=== PATIENT | male | born 1940 | race Caucasian/White ===

== ENCOUNTER 2017-02-19 19:20 | Emergency (ER) | payer OTHER ==
[2017-02-19 19:29] VITALS: BP 115/69; PULSE 89; TEMP 98.3; BMI 32.8
--- NOTE | 2017-02-19 19:37 | PDOC ---
History of Present Illness - History of Present Illness Initial Comments: 02/19/17 19:43 The patient is a 76 year old male, with a significant past medical history of HTN, DM, and hypercholesterolemia, who presents to the emergency department for evaluation of 4 days with left shoulder pain. The patient states his left shoulder pain radiates down his left arm with movement. He also states his pain is worse at night when he goes to sleep. He also admits to tenderness over the symptomatic shoulder. He denies neck pain or jaw pain. He denies experiencing this pain in the past. He denies chest pain, shortness of breath, headache and dizziness. He denies fever, chills, nausea, vomit, diarrhea and constipation. He denies dysuria, frequency, urgency and hematuria. PCP - Dr. Marko Wolff PAST MEDICAL HISTORY: no significant history PAST SURGICAL HISTORY: no significant history FAMILY HISTORY: no pertinent history SOCIAL HISTORY: Pt lives with family and is employed. MEDICATIONS: reviewed ALLERGIES: As per nursing notes Adult ROS General: No fevers or chills, no weakness, no weight loss HEENT: No change in vision. No sore throat,. No ear pain CardioVascular: No chest pain or shortness of breath Respiratory:No cough, or wheezing. Gastrointestinal: no nausea, vomiting, diarrhea or constipation, No rectal bleeding Genitourinary: No dysuria, hematuria, or frequency Musculoskeletal: (+) left shoulder pain. No joint or muscle swelling Neurologic: No headache, vertigo, dizziness or loss of consciousness Psychiatric: nor depression Skin: No rashes or easy bruising Endocrine: no increased thirst or abnormal weight change Allergic: no skin or latex allergy All other systems reviewed and normal Adult Exam: General: Well-nourished well-developed individual, no acute distress HEENT: Throat: Normal, tonsils normal, no erythema or exudate Neck: Supple, no meningeal signs, no lymphadenopathy Eyes::Pupils equal reactive and round, extraocular motion intact Chest: Nontender to palpation Cardiac: S1-S2 normal, regular rate and rhythm, no murmurs rubs or gallops Respiratory: Lungs clear to auscultation bilateral Abdomen: Soft, nondistended, normal bowel sounds, nontender to palpation diffusely Extremities: (+) mild ttp to left anterior shoulder. No swelling, bruising, or erythema. no cyanosis, clubbing, or edema. NO increased warmth. Skin: No rashes Neuro: Alert and oriented x3, nonfocal exam, grossly intact, normal gait Psych: Normal mood and affect <Kristine Rhodes - Last Filed: 02/19/17 20:05> - General History Source: Patient Exam Limitations: No Limitations - History of Present Illness Initial Comments: 02/19/17 20:09 A portion of this note was documented by scribe services under my direction. I have reviewed the details of the note, within reason, and agree with the documentation. The case summary and management plan written by me. Her shoulder x-ray was reviewed by me as well as read by the radiologist as arthritis degenerative changes Assessment and plan: This is a 76-year-old male who comes in complaining of left shoulder pain. Patient has a history of having fractured his left clavicle. She was given Toradol IM and the a brief course of Naprosyn was sent to the pharmacy patient was given an orthopedic follow-up. <Selvin Wilson I - Last Filed: 02/19/17 20:15> - General Chief Complaint: Pain Stated Complaint: LEFT SHOULDER PAIN Time Seen by Provider: 02/19/17 19:23 Past History <Kristine Rhodes - Last Filed: 02/19/17 20:05> - Past Medical History Diabetes: Yes HTN: Yes Hypercholesterolemia: Yes HIV: Yes - Psycho/Social/Smoking Cessation Hx Anxiety: No Suicidal Ideation: No Smoking History: Former smoker Have you smoked in the past 12 months: No If you are a former smoker, when did you quit?: 40 YRS AGO Information on smoking cessation initiated: No Hx Alcohol Use: No Drug/Substance Use Hx: No <Selvin Wilson I - Last Filed: 02/19/17 20:15> - Past Medical History Allergies/Adverse Reactions: Allergies Allergy/AdvReac Type Severity Reaction Status Date / Time No Known Allergies Allergy Unverified 12/23/15 00:47 Home Medications: Ambulatory Orders Furosemide [Lasix] 20 mg PO DAILY 02/19/17 Losartan Potassium 100 mg PO DAILY 02/19/17 Metformin HCl 500 mg PO BID 02/19/17 Simvastatin 40 mg PO HS 02/19/17 *Physical Exam - Vital Signs Last Vital Signs Temp Pulse Resp BP Pulse Ox 98.3 F 89 18 115/69 96 02/19/17 19:20 02/19/17 19:20 02/19/17 19:20 02/19/17 19:20 02/19/17 19:20 <Kristine Rhodes - Last Filed: 02/19/17 20:05> - Vital Signs Last Vital Signs Temp Pulse Resp BP Pulse Ox 98.3 F 89 18 115/69 96 02/19/17 19:20 02/19/17 19:20 02/19/17 19:20 02/19/17 19:20 02/19/17 19:20 <Selvin Wilson I - Last Filed: 02/19/17 20:15> ED Treatment Course - RADIOLOGY Radiograph Interpretation: 02/19/17 20:06 Left shoulder xray was read by Dr. Lua at 20:04 Impression: mild degenerative arthritis without evidence of acute fracture or joint abnormalities. <Kristine Rhodes - Last Filed: 02/19/17 20:05> *DC/Admit/Observation/Transfer - Attestations Scribe Attestion: 02/19/17 19:43 Documentation prepared by Kristine Rhodes, acting as medical record assistant for Selvin Wilson MD <Kristine Rhodes - Last Filed: 02/19/17 20:05> - Discharge Dispostion Admit: No <Selvin Wilson I - Last Filed: 02/19/17 20:15> Diagnosis at time of Disposition: Left shoulder pain Qualifiers: Chronicity: acute Qualified Code(s): M25.512 - Pain in left shoulder - Discharge Dispostion Disposition: HOME Condition at time of disposition: Stable - Referrals Referrals: Susana Carl MD [Primary Care Provider] - - Patient Instructions Additional Instructions: Take Naprosyn 1 tablet twice a day for the pain. Take with food don't take on an empty stomach. Follow-up with an orthopedist if you need an orthopedist call Dr. Alarcon at [phone]. Return to the emergency department immediately with ANY new, persistent or worsening symptoms. Continue any medications as previously prescribed by your physician. You should follow up with your primary doctor as soon as possible regarding today's emergency department visit. . Please make sure your doctor reviews the results of your emergency evaluation. Thank you for coming to the Emergency Department today for your care. It was a pleasure to see you today. Please note that your evaluation is INCOMPLETE until you follow-up with your doctor.
[2017-02-19] MEDS ORDERED: KETOROLAC TROMETHAMINE 60 MG/2 ML VIAL IM ONE (20:04)
[2017-02-19] MEDS ORDERED: KETOROLAC TROMETHAMINE 60 MG/2 ML VIAL ONE (20:05)
--- NOTE | 2017-02-20 14:16 | EKG ---
Test Reason : Blood Pressure : / mmHG Vent. Rate : 089 BPM Atrial Rate : 089 BPM P-R Int : 164 ms QRS Dur : 114 ms QT Int : 390 ms P-R-T Axes : 023 -57 032 degrees QTc Int : 474 ms NORMAL SINUS RHYTHM POSSIBLE LEFT ATRIAL ENLARGEMENT LEFT AXIS DEVIATION NON-SPECIFIC INTRA-VENTRICULAR CONDUCTION DELAY NO PREVIOUS ECGS AVAILABLE Confirmed by MD DE LA CRUZ MARJORY ([id number]) on 02/20/2017 2:16:37 PM Referred By: DR SLATER Confirmed By:MIKE DE LA CRUZ MD
== END 2017-02-19 20:21 | disposition home or self-care (01) ==
LOC: FER 19:20
PROC: 3E0233Z Introduction of Anti-inflammatory into Muscle, Percutaneous Approach (ICD-10-PCS; principal; 2017-02-19)
DX: M25.512 Pain in left shoulder (principal); Z87.891 Personal history of nicotine dependence; E11.9 Type 2 diabetes mellitus without complications; I10 Essential (primary) hypertension; E78.00 Pure hypercholesterolemia, unspecified; Z21 Asymptomatic human immunodeficiency virus [HIV] infection status
CPT/HCPCS: 73030-TC-LT; 93005; 99283-25

== ENCOUNTER 2017-03-02 07:44 | Observation (INO) | payer OTHER ==
--- NOTE | 2017-03-02 07:54 | PDOC ---
History of Present Illness - General Chief Complaint: Chest Pain Stated Complaint: CHEST PAIN, HTN Time Seen by Provider: 03/02/17 07:53 History Source: Patient Exam Limitations: No Limitations - History of Present Illness Initial Comments: 03/02/17 08:14 Pt presents to the ED complaining of a several hour history of left sided non radiating chest pain. The pain was constant, mild in severity, and characterized by the patient as " regular pain", similar to a pulled muscle. Denies shortness of breath, nausea, vomiting or diaphoresis. Patient does not have a history of similar pain. Pain began before the patient went to sleep last night, and patient presents to the ED today because he continued to have pain this morning. Patient was also concerned because he checked his BP at home and it was high. Patient has not taken his home medication yet today. History of CAD with stents x 2. 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 Denies recent stress test. 03/02/17 08:18 Timing/Duration: 4-6 hours, constant Severity: mild Associated Symptoms: reports: chest pain. denies: denies symptoms, cough, diaphoresis, fever/chills, headaches, loss of appetite, malaise, nausea/vomiting , rash, seizure, shortness of breath, syncope, weakness, other Aspirin Received prior to arrival: Yes: no aspirin today Past History - Past Medical History Allergies/Adverse Reactions: Allergies Allergy/AdvReac Type Severity Reaction Status Date / Time No Known Allergies Allergy Unverified 12/23/15 00:47 Home Medications: Ambulatory Orders Losartan Potassium 100 mg PO DAILY 02/19/17 Metformin HCl 500 mg PO BID 02/19/17 Simvastatin 40 mg PO HS 02/19/17 Clopidogrel Bisulfate [Clopidogrel] 75 mg PO DAILY 03/02/17 Glipizide 5 mg PO DAILY 03/02/17 Metoprolol Tartrate 12.5 mg PO BID 03/02/17 Diabetes: Yes HTN: Yes Hypercholesterolemia: Yes HIV: Yes Other medical history: CAD with stent x 2 placed two years ago. - Psycho/Social/Smoking Cessation Hx Anxiety: No Suicidal Ideation: No Smoking History: Former smoker Have you smoked in the past 12 months: No If you are a former smoker, when did you quit?: 40 YRS AGO Hx Alcohol Use: No Drug/Substance Use Hx: No Review of Systems - Review of Systems Constitutional: No: Symptoms Reported, See HPI, Chills, Diaphoresis, Fever, Loss of Appetite, Malaise, Night Sweats, Weakness, Weight Stable, Unintentional Wgt. Loss, Unexplained wgt Loss, Other Respiratory: No: Symptoms reported, See HPI, Cough, Orthopnea, Shortness of Breath, SOB with Exertion, SOB at Rest, Stridor, Wheezing, Productive cough, Hemoptysis, Other Cardiac (ROS): Yes: Chest Pain. No: Symptoms Reported, See HPI, Edema, Irregular Heart Rate, Lightheadedness, Palpitations, Syncope, Chest Tightness, Other ABD/GI: No: Symptoms Reported, See HPI, Abdominal Distended, Abd. Pain w/ defecation, Blood Streaked Bowels, Constipated, Diarrhea, Difficulty Swallowing , Nausea, Poor Appetite, Poor Fluid Intake, Rectal Bleeding, Vomiting, Indigestion, Abdominal cramping, Tarry Stools, Other Musculoskeletal: No: Symptoms Reported, See HPI, Back Pain, Gout, Joint Pain, Joint Swelling, Muscle Pain, Muscle Weakness, Neck Pain, Joint Stiffness, Other All Other Systems: Reviewed and Negative *Physical Exam - Vital Signs 03/02/17 08:20 - Physical Exam General Appearance: Yes: Nourished, Appropriately Dressed. No: Apparent Distress, Disheveled, Mild Distress, Moderate Distress, Severe Distress, Alcohol on Breath, Intoxicated, Cachetic, Obese, Thin, Other HEENT: positive: Normal ENT Inspection Neck: positive: Trachea midline, Supple Respiratory/Chest: positive: Lungs Clear, Normal Breath Sounds Cardiovascular: positive: Regular Rhythm, Regular Rate Gastrointestinal/Abdominal: positive: Soft. negative: Normal Bowel Sounds, Tender, Flat, Organomegaly, Pulsatile Mass, Increased Bowel Sounds, Decreased BS , Protuberent, Distended, Guarding, Rebound, Tenderness, Hernia, Mass, Hepatomegaly, Spleenomegaly, Other Musculoskeletal: positive: Normal Inspection Extremity: positive: Normal Inspection, Normal Range of Motion Neurologic: positive: Fully Oriented, Alert, Normal Mood/Affect ED Treatment Course - LABORATORY CBC & Chemistry Diagram: 03/02/17 08:35 03/02/17 08:35 Medical Decision Making - Medical Decision Making 03/02/17 08:21 Pt presents to the ED complaining of several hours of constant chest pain that has now sponataneously resolved. Multiple risk factors for cardiac disease. Currently chest pain free. EKG shows Left axis deviation with no signs of ischemia and is unchanged from previous. Differential includes ACS, muscular chest pain. Heart score is 4. Will check labs and cardiac enzymes, treat with ASA, likely admit for cardiac work up. *DC/Admit/Observation/Transfer Diagnosis at time of Disposition: Chest pain Qualifiers: Chest pain type: other chest pain Qualified Code(s): R07.89 - Other chest pain ; R07.8 - Other chest pain - Discharge Dispostion Condition at time of disposition: Good Admit: Yes Decision to Admit order Date/Time: 03/02/17 11:33
[2017-03-02] MEDS ORDERED: ASPIRIN 81 MG CHEWABLE TABLETS PO ONE (08:09)
[2017-03-02] MEDS ORDERED: LOSARTAN POTASSIUM 50 MG TABLET (FP) PO ONE (08:11)
[2017-03-02] MEDS ORDERED: ASPIRIN 81 MG CHEWABLE TABLETS ONE (08:14)
[2017-03-02 08:40] LABS: BASOPHIL 0.8 % (0-2.0); EOSINOPHIL 3.2 % (0-4.5); MCH 31.2 pg (25.7-33.7); MCHC 33.1 g/dl (32.0-35.9); MEAN CELL VOLUME 94.2 fl (80-96); MEAN PLT VOLUME 8.3 fl (7.5-11.1); NEUTROPHILS 66.1 % (42.8-82.8); PLATELET COUNT 209 K/MM3 (134-434); RDW 12.1 % (11.9-15.9); WHITE BLOOD COUNT 5.8 K/mm3 (4.0-10.8)
[2017-03-02 09:06] LABS: ALBUMIN 4.3 g/dl (3.5-5.0); ALK PHOS 51 U/L (32-92); ANION GAP 8 (8-16); CALCIUM 9.5 mg/dl (8.4-10.2); CO2 25 mmol/L (22-28); CREATININE 1.4 mg/dl (0.6-1.3); GLUCOSE,RANDOM 170 mg/dl (74-106); SGOT/AST 27 U/L (10-42); SGPT/ALT 18 U/L (10-40); TOT PROT 6.5 g/dl (6.4-8.3)
[2017-03-02 09:11] LABS: TROPONIN I (DFP) 0.04 ng/ml (0.03-0.50)
[2017-03-02] MEDS ORDERED: LOSARTAN POTASSIUM 50 MG TABLET (FP) PO SCH (10:00)
[2017-03-02] MEDS ORDERED: METOPROLOL TARTRATE 25 MG TABLET (FP) PO ONE (10:52)
[2017-03-02] MEDS ORDERED: METOPROLOL TARTRATE 50 MG TABLET (FP) ONE (10:57)
--- NOTE | 2017-03-02 14:08 | HP ---
CHIEF COMPLAINT: Chest pain PCP: Dr. 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 HISTORY OF PRESENT ILLNESS: This is a 76 year old male with primary history significant for HTN, HDL,DM,CAD , s/p stent 2 yrs ago, and ? CKD, who presents to the ER c/o woke up with left sided chest pain around midnight, felt like muscle pain which lasted for a few minutes,non-radiating, not associated with sob,diaphoresis or palpitations, pain resolved spontaneously and went back to sleep. This morning reports of having the same pain denies shortness of breath,abdominal pain, nausea, vomiting or diaphoresis. Pt states was in [facility] until the symptoms started. ER course was notable for: (1) EKG : SR , no acute ST/T wave changes (2) BP 172/90, HR 90, T 97.4, R 20 (3) cxR - No acute pathology Recent Travel:No PAST MEDICAL HISTORY: PAST SURGICAL HISTORY: CAD with s/p stent placement 2 yrs ago Social History: Smoking:Former, quit 40 yrs ago Alcohol: None Drugs: None Family History: Brother of [place] at age 77 Allergies No Known Allergies Allergy (Unverified 12/23/15 00:47) HOME MEDICATIONS: Home Medications Medication Instructions Recorded Losartan Potassium 100 mg PO DAILY 02/19/17 Metformin HCl 500 mg PO BID 02/19/17 Simvastatin 40 mg PO HS 02/19/17 Clopidogrel Bisulfate [Clopidogrel] 75 mg PO DAILY 03/02/17 Glipizide 5 mg PO DAILY 03/02/17 Metoprolol Tartrate 12.5 mg PO BID 03/02/17 REVIEW OF SYSTEMS CONSTITUTIONAL: Absent: fever, chills, diaphoresis, generalized weakness, malaise, loss of appetite, weight change HEENT: Absent: rhinorrhea, nasal congestion, throat pain, throat swelling, difficulty swallowing, mouth swelling, ear pain, eye pain, visual changes CARDIOVASCULAR: Absent: chest pain, syncope, palpitations, irregular heart rate, lightheadedness , peripheral edema RESPIRATORY: Absent: cough, shortness of breath, dyspnea with exertion, orthopnea, wheezing, stridor, hemoptysis GASTROINTESTINAL: Absent: abdominal pain, abdominal distension, nausea, vomiting, diarrhea, constipation, melena, hematochezia GENITOURINARY: Absent: dysuria, frequency, urgency, hesitancy, hematuria, flank pain, genital pain MUSCULOSKELETAL: Absent: myalgia, arthralgia, joint swelling, back pain, neck pain SKIN: Absent: rash, itching, pallor HEMATOLOGIC/IMMUNOLOGIC: Absent: easy bleeding, easy bruising, lymphadenopathy, frequent infections ENDOCRINE: Absent: unexplained weight gain, unexplained weight loss, heat intolerance, cold intolerance NEUROLOGIC: Absent: headache, focal weakness or paresthesias, dizziness, unsteady gait, seizure, mental status changes, bladder or bowel incontinence PSYCHIATRIC: Absent: anxiety, depression, suicidal or homicidal ideation, hallucinations. PHYSICAL EXAMINATION Vital Signs - 24 hr 03/02/17 13:25 Pulse Rate [ 80 Left] Respiratory 20 Rate Blood Pressure 154/84 [Right Arm] O2 Sat by Pulse 96 Oximetry (%) GENERAL: Awake, alert, and fully oriented, in no acute distress. HEAD: Normal with no signs of trauma. EYES: Pupils equal, round and reactive to light, extraocular movements intact, sclera anicteric, conjunctiva clear. No lid lag. EARS, NOSE, THROAT: Ears normal, nares patent, oropharynx clear without exudates. Moist mucous membranes. NECK: Normal range of motion, supple without lymphadenopathy, JVD, or masses. LUNGS: Breath sounds equal, clear to auscultation bilaterally. No wheezes, and no crackles. No accessory muscle use. HEART: Regular rate and rhythm, normal S1 and S2 without murmur, rub or gallop. ABDOMEN: Soft, nontender, not distended, normoactive bowel sounds, no guarding, no rebound, no masses. No hepatomegaly or splenomegaly. MUSCULOSKELETAL: Normal range of motion at all joints. No bony deformities or tenderness. No CVA tenderness. UPPER EXTREMITIES: 2+ pulses, warm, well-perfused. No cyanosis. No clubbing. No peripheral edema. LOWER EXTREMITIES: 2+ pulses, warm, well-perfused. No calf tenderness. No peripheral edema. NEUROLOGICAL: Cranial nerves II-XII intact. Normal speech. Normal gait. PSYCHIATRIC: Cooperative. Good eye contact. Appropriate mood and affect. SKIN: Warm, dry, normal turgor, no rashes or lesions noted, normal capillary refill. ASSESSMENT/PLAN: This is a 76 year old male with primary history significant for HTN, HDL,CAD, s/ p stent 2 yrs ago, who presents to the ER with chest pain. * Atypical chest pain, r/o ACS - trop neg x1, will check serial cardiac enzymes - telemetry monitoring - reports had echo about a month ago with Dr. Rodriguez - will cont on ASA, BB, and Statin - ER notified Dr. Murrell ( covering for Dr. Rodriguez) * Hx of CAD w/ stents - will cont on home meds ASA, Plavix, BB and Statin * HTN - BP improving - will cont on home meds - will monitor BP closely * HDL - will cont on Statin * DM - will cont on Glipizide and Metformin - FS AC& HS - consistent carb diet -will check Hgb Alc * CKD - cre 1.4 , same as previous admission VTE : Heparin SQ F/E/N - will continue on diabetic, low NA/ fat diet Visit type - Emergency Visit Emergency Visit: Yes ED Registration Date: 03/02/17 Care time: The patient presented to the Emergency Department on the above date and was hospitalized for further evaluation of their emergent condition. - New Patient This patient is new to me today: Yes Date on this admission: 03/02/17 - Critical Care Critical Care patient: No
[2017-03-02 14:25] VITALS: BMI 33.0
[2017-03-02] MEDS ORDERED: PATIENT'S OWN MEDICATION (NON-FORMULARY) (Losartan Potassium [Losartan Potassium] 100 MG) PO SCH (14:30)
[2017-03-02] MEDS: ACETAMINOPHEN 325 MG TABLET (FP) PO PRN ×2 (16:00→21:32)
--- NOTE | 2017-03-02 16:05 | CON.CARD ---
Consult Consult Specialty:: Cardiology for Jennifer Reason for Consultation:: cp - History of Present Illness History of Present Illness: Pt presents to the ED complaining of a several hour history of left sided non radiating chest pain. The pain was constant, mild in severity, and characterized by the patient as " regular pain", similar to a pulled muscle. Denies shortness of breath, nausea, vomiting or diaphoresis. Patient does not have a history of similar pain. Pain began before the patient went to sleep last night, and patient presents to the ED today because he continued to have pain this morning. Patient was also concerned because he checked his BP at home and it was high. Patient has not taken his home medication yet today. History of CAD with stents x 2. 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 Denies recent stress test. - History Source History Provided By: Patient, Medical Record - Past Medical History Cardio/Vascular: Yes: CAD, HTN, Hyperlipdemia Endocrine: Yes: Diabetes Mellitus - Alcohol/Substance Use Hx Alcohol Use: No - Smoking History Smoking history: Former smoker Have you smoked in the past 12 months: No If you are a former smoker, when did you quit?: 40 YRS AGO Home Medications - Allergies Allergies/Adverse Reactions: Allergies Allergy/AdvReac Type Severity Reaction Status Date / Time No Known Allergies Allergy Unverified 12/23/15 00:47 - Home Medications Home Medications: Ambulatory Orders Losartan Potassium 100 mg PO DAILY 02/19/17 Metformin HCl 500 mg PO BID 02/19/17 Simvastatin 40 mg PO HS 02/19/17 Clopidogrel Bisulfate [Clopidogrel] 75 mg PO DAILY 03/02/17 Glipizide 5 mg PO DAILY 03/02/17 Metformin HCl [Metformin HCl ER] 1,000 mg PO HS 03/02/17 Metoprolol Tartrate 12.5 mg PO BID 03/02/17 Review of Systems - Review of Systems Constitutional: reports: No Symptoms Eyes: reports: No Symptoms HENT: reports: No Symptoms Neck: reports: No Symptoms Cardiovascular: reports: No Symptoms, Chest Pain Respiratory: denies: No Symptoms, Cough, Exercise Intolerance, Hemoptysis, Orthopnea, PND, Snoring, SOB, SOB on Exertion, Wheezing, Other Gastrointestinal: reports: No Symptoms Genitourinary: reports: No Symptoms Breasts: reports: No Symptoms Reported Musculoskeletal: reports: No Symptoms Integumentary: reports: No Symptoms Neurological: reports: No Symptoms Endocrine: reports: No Symptoms Hematology/Lymphatic: reports: No Symptoms Psychiatric: reports: No Symptoms Vital Signs: Vital Signs Temperature 98.0 F 03/02/17 13:45 Pulse Rate 77 03/02/17 13:45 Respiratory Rate 18 03/02/17 13:45 Blood Pressure 151/85 03/02/17 13:45 O2 Sat by Pulse Oximetry (%) 97 03/02/17 13:45 Constitutional: Yes: Well Nourished, No Distress, Calm Eyes: Yes: WNL, Conjunctiva Clear, EOM Intact HENT: Yes: WNL, Atraumatic, Normocephalic Neck: Yes: WNL, Supple, Trachea Midline Respiratory: Yes: WNL, Regular, CTA Bilaterally Gastrointestinal: Yes: WNL, Normal Bowel Sounds Renal/: Yes: WNL Cardiovascular: Yes: WNL, Regular Rate and Rhythm Musculoskeletal: Yes: WNL Extremities: Yes: WNL Integumentary: Yes: WNL Neurological: Yes: WNL, Alert, Oriented ...Motor Strength: WNL Psychiatric: Yes: WNL, Alert, Oriented - Other Data Labs, Other Data: Troponin, BNP 03/02/17 14:30 Troponin I 0.03 Troponin, BNP 03/02/17 14:30 Troponin I 0.03 Imaging - Results Chest X-ray: Image Reviewed (no i/e) EKG: Image Reviewed (s r old septal mi ldea vpcs) Problem List - Problems (1) Chest pain Code(s): R07.9 - CHEST PAIN, UNSPECIFIED Qualifiers: Chest pain type: other chest pain Qualified Code(s): R07.89 - Other chest pain; R07.8 - Other chest pain (2) CHF (congestive heart failure) Code(s): I50.9 - HEART FAILURE, UNSPECIFIED Qualifiers: Congestive heart failure chronicity: acute (3) Left shoulder pain Code(s): M25.512 - PAIN IN LEFT SHOULDER Qualifiers: Chronicity: acute Qualified Code(s): M25.512 - Pain in left shoulder Assessment/Plan cpsx ashd s/p pci 2 years ago htn hlp dm chf plan dapt r/o mi mibi st
[2017-03-02] MEDS: CLOPIDOGREL BISULFATE 75 MG TABLET (FP) PO SCH ×2 (16:17→16:18)
[2017-03-02] MEDS ORDERED: metFORMIN HCL 500 MG TABLET (FP) PO SCH (17:00)
[2017-03-02] MEDS ORDERED: PT OWN MED DRAWER 7, Y5N ONE (17:12)
[2017-03-02 20:55] LABS: TROPONIN I 0.04 ng/ml (0.00-0.05)
[2017-03-02] MEDS ORDERED: METOPROLOL TARTRATE 25 MG TABLET (FP) PO SCH ×2 (22:00)
[2017-03-02] MEDS ORDERED: ATORVASTATIN CA 20 MG TABLET (FP) PO SCH (22:00)
[2017-03-03] MEDS ORDERED: metFORMIN HCL 500 MG TABLET (FP) PO SCH (07:00)
--- NOTE | 2017-03-03 08:08 | EKG ---
Test Reason : Blood Pressure : / mmHG Vent. Rate : 090 BPM Atrial Rate : 090 BPM P-R Int : 186 ms QRS Dur : 114 ms QT Int : 380 ms P-R-T Axes : 013 -50 018 degrees QTc Int : 464 ms SINUS RHYTHM WITH OCCASIONAL PREMATURE VENTRICULAR COMPLEXES LEFT AXIS DEVIATION SEPTAL INFARCT , AGE UNDETERMINED ABNORMAL ECG WHEN COMPARED WITH ECG OF 19-FEB-2017 19:44, PREMATURE VENTRICULAR COMPLEXES ARE NOW PRESENT Criteria for possible SEPTAL INFARCT IS NOW PRESENT Confirmed by SEGUNDO SANCHEZ MD ([id number]) on 03/03/2017 8:07:55 AM Referred By: EVELYN Confirmed By:SEGUNDO SANCHEZ MD
--- NOTE | 2017-03-03 08:23 | PN ---
Progress Note, Physician History of Present Illness: Pt presents to the ED complaining of a several hour history of left sided non radiating chest pain. The pain was constant, mild in severity, and characterized by the patient as " regular pain", similar to a pulled muscle. Denies shortness of breath, nausea, vomiting or diaphoresis. Patient does not have a history of similar pain. Pain began before the patient went to sleep last night, and patient presents to the ED today because he continued to have pain this morning. Patient was also concerned because he checked his BP at home and it was high. Patient has not taken his home medication yet today. History of CAD with stents x 2. Clin Asst is Dr. Rodriguez. Denies recent stress test. - Current Medication List Current Medications: Active Medications Acetaminophen (Tylenol -) 650 mg PO Q4H PRN PRN Reason: FEVER OR PAIN Last Admin: 03/02/17 21:32 Dose: 650 mg Aspirin (Asa -) 81 mg PO DAILY [facility] Atorvastatin Calcium (Lipitor -) 20 mg PO HS [facility] Last Admin: 03/02/17 21:33 Dose: 20 mg Clopidogrel Bisulfate (Plavix -) 75 mg PO DAILY [facility] Last Admin: 03/02/17 16:18 Dose: Not Given Glipizide (Glucotrol -) 5 mg PO DAILY [facility] Losartan Potassium (Cozaar -) 100 mg PO DAILY [facility] Metformin HCl (Glucophage -) 500 mg PO DAILY@0700 [facility] Last Admin: 03/03/17 07:17 Dose: 500 mg Metformin HCl (Glucophage -) 1,000 mg PO 1700 [facility] Last Admin: 03/02/17 16:17 Dose: 1,000 mg Metoprolol Tartrate (Lopressor -) 12.5 mg PO BID [facility] Last Admin: 03/02/17 21:34 Dose: 12.5 mg - Objective Vital Signs: Vital Signs Temperature 98.5 F 03/03/17 06:00 Pulse Rate 88 03/03/17 06:00 Respiratory Rate 19 03/03/17 06:00 Blood Pressure 159/89 03/03/17 06:00 O2 Sat by Pulse Oximetry (%) 97 03/03/17 06:00 Constitutional: Yes: Well Nourished Eyes: Yes: WNL, Conjunctiva Clear, EOM Intact HENT: Yes: WNL, Atraumatic, Normocephalic Neck: Yes: WNL, Supple, Trachea Midline Cardiovascular: Yes: WNL, Regular Rate and Rhythm Respiratory: Yes: WNL, Regular, CTA Bilaterally Gastrointestinal: Yes: WNL, Normal Bowel Sounds Genitourinary: Yes: WNL Musculoskeletal: Yes: WNL Extremities: Yes: WNL Edema: No Integumentary: Yes: WNL Neurological: Yes: WNL, Alert, Oriented ...Motor Strength: WNL Psychiatric: Yes: WNL Labs: Laboratory Tests 03/02/17 03/02/17 03/02/17 08:35 08:35 08:35 WBC 5.8 RBC 4.69 Hgb 14.6 Hct 44.2 MCV 94.2 MCH 31.2 MCHC 33.1 RDW 12.1 Plt Count 209 MPV 8.3 Neutrophils % 66.1 Lymphocytes % 21.2 Monocytes % 8.7 Eosinophils % 3.2 Basophils % 0.8 Sodium 137 Potassium 4.4 Chloride 104 Carbon Dioxide 25 Anion Gap 8 BUN 29 H Creatinine 1.4 H Creat Clearance w eGFR 49.14 POC Glucometer Random Glucose 170 H Calcium 9.5 Total Bilirubin 1.0 AST 27 ALT 18 Alkaline Phosphatase 51 Creatine Kinase 197 Creatine Kinase Index 3.8 CK-MB (CK-2) 7.6 H Troponin I 0.04 Total Protein 6.5 Albumin 4.3 03/02/17 03/02/17 03/02/17 14:30 16:27 20:25 WBC RBC Hgb Hct MCV MCH MCHC RDW Plt Count MPV Neutrophils % Lymphocytes % Monocytes % Eosinophils % Basophils % Sodium Potassium Chloride Carbon Dioxide Anion Gap BUN Creatinine Creat Clearance w eGFR POC Glucometer 107 Random Glucose Calcium Total Bilirubin AST ALT Alkaline Phosphatase Creatine Kinase Creatine Kinase Index CK-MB (CK-2) 6.1 H Troponin I 0.03 0.04 D Total Protein Albumin 03/02/17 03/03/17 20:31 07:01 WBC RBC Hgb Hct MCV MCH MCHC RDW Plt Count MPV Neutrophils % Lymphocytes % Monocytes % Eosinophils % Basophils % Sodium Potassium Chloride Carbon Dioxide Anion Gap BUN Creatinine Creat Clearance w eGFR POC Glucometer 124 181 Random Glucose Calcium Total Bilirubin AST ALT Alkaline Phosphatase Creatine Kinase Creatine Kinase Index CK-MB (CK-2) Troponin I Total Protein Albumin Problem List - Problems (1) Chest pain Code(s): R07.9 - CHEST PAIN, UNSPECIFIED Qualifiers: Chest pain type: other chest pain Qualified Code(s): R07.89 - Other chest pain; R07.8 - Other chest pain (2) CHF (congestive heart failure) Code(s): I50.9 - HEART FAILURE, UNSPECIFIED Qualifiers: Congestive heart failure chronicity: acute (3) Left shoulder pain Code(s): M25.512 - PAIN IN LEFT SHOULDER Qualifiers: Chronicity: acute Qualified Code(s): M25.512 - Pain in left shoulder Assessment/Plan cpsx ashd s/p pci 2 years ago htn hlp dm chf plan dapt r/o mi mibi st in am patient refusing mibi st wants to sign out ama and have stress test as an outpatient. understands risks of /mi
[2017-03-03 08:42] VITALS: BP 180/81; PULSE 98; TEMP 98
[2017-03-03 09:45] LABS: ANION GAP 5 (8-16); CALCIUM 9.2 mg/dl (8.4-10.2); CO2 26 mmol/L (22-28); CREATININE 1.4 mg/dl (0.6-1.3); GLUCOSE,RANDOM 163 mg/dl (74-106)
[2017-03-03] MEDS ORDERED: glipiZIDE 5 MG TABLET (FP) PO SCH (10:00)
[2017-03-03] MEDS ORDERED: ASPIRIN 81 MG CHEWABLE TABLETS PO SCH (10:00)
[2017-03-03] MEDS ORDERED: LOSARTAN POTASSIUM 50 MG TABLET (FP) PO SCH (10:00)
== END 2017-03-03 08:45 | disposition left against medical advice (07) ==
LOC: FER 07:44 → FM/S 12:33
PROVIDERS: ADMIT Internal Medicine; ATTEND Nurse Practitioner Family
DX: R07.89 Other chest pain (principal); I10 Essential (primary) hypertension; I50.9 Heart failure, unspecified; I25.10 Atherosclerotic heart disease of native coronary artery without angina pectoris; E11.9 Type 2 diabetes mellitus without complications; E78.5 Hyperlipidemia, unspecified; Z21 Asymptomatic human immunodeficiency virus [HIV] infection status; Z95.5 Presence of coronary angioplasty implant and graft; Z79.84 Long term (current) use of oral hypoglycemic drugs; Z87.891 Personal history of nicotine dependence; M25.512 Pain in left shoulder
CPT/HCPCS: 36415; 71010-TC; 80048; 80053; 82553; 83036; 84484; 85025; 93005; 99285-25; G0378

== ENCOUNTER 2018-04-10 17:10 | Inpatient (IN) | payer OTHER ==
--- NOTE | 2018-04-10 17:16 | PDOC ---
History of Present Illness - General Stated Complaint: CHEST PAIN Time Seen by Provider: 04/10/18 17:14 - History of Present Illness Initial Comments: 04/10/18 17:15 77 year old patient with history of CAD 2 stents (2016) HTN and DM who presents with 2 days of exertion shortness of breath. He admits to 2-3 of dry cough but denies any other URI symptoms. Per clinc patient was seen at, new EKG changes and patient had some diaphroessis and dyspnea with mild chest tightness. The patient denies chest pain, palpitations or lightheadedness, denies any recent long flights, drives or travel, denies any coughing sneezing past smoker quit 15 tears ago History of CAD with stents x 2. 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 04/10/18 17:49 04/10/18 17:53 Past History - Past Medical History Allergies/Adverse Reactions: Allergies Allergy/AdvReac Type Severity Reaction Status Date / Time No Known Allergies Allergy Unverified 12/23/15 00:47 Home Medications: Ambulatory Orders Losartan Potassium 100 mg PO DAILY 02/19/17 Simvastatin 40 mg PO HS 02/19/17 metFORMIN HCL [Metformin HCl] 500 mg PO BID 02/19/17 Clopidogrel Bisulfate [Clopidogrel] 75 mg PO DAILY 03/02/17 Glipizide 5 mg PO DAILY 03/02/17 Metformin HCl [Metformin HCl ER] 1,000 mg PO HS 03/02/17 Metoprolol Tartrate 12.5 mg PO BID 03/02/17 Cardiac Disorders: Yes Diabetes: Yes HTN: Yes Hypercholesterolemia: Yes - Surgical History Cardiac Surgery: Yes (STENTS X2) - Suicide/Smoking/Psychosocial Hx Smoking History: Former smoker Have you smoked in the past 12 months: No If you are a former smoker, when did you quit?: 40 YRS AGO Hx Alcohol Use: No Drug/Substance Use Hx: No Substance Use Type: None ED Treatment Course - LABORATORY CBC & Chemistry Diagram: 04/10/18 17:17 04/10/18 17:17 Medical Decision Making - Medical Decision Making 04/10/18 17:48 DDX including but not limited to: pna vs acs/arrythymia vs copd vs CHF W/U: - TX: - Scores: ED Course: 04/10/18 18:54 CXR: blunting of R costophrenic angle w/ small meniscus, cephalization of the lungs, appearance of pulmonary edema Patient without history of CHF, however will order BNP to r/o fluid overload. Prior CXRs shows some increased vascular markings of the lungs but without costophrenic angle changes as found today. CBC: unremarkable trop: .04 EKG: sinus rhythm w/ PVCs HR 87, no interval abnormalities, QRS 122, ST and T wave segments and morphology normal. Repeat 3 hour trop. Cardiology, Jennifer contacted. 04/10/18 19:27 Meka recommends lasix 20 Medicine contacted for tele obs admission 04/10/18 19:46 Prior EF of 38%, Patient with history some heart failure. Patient admitted to medicine for Tele Obs. *DC/Admit/Observation/Transfer Diagnosis at time of Disposition: Chest pain, Dyspnea - Discharge Dispostion Condition at time of disposition: Stable Decision to Admit order: Yes - Referrals - Patient Instructions - Post Discharge Activity
[2018-04-10 17:51] LABS: EOS % 3.1 % (0-4.5); HEMATOCRIT 41.3 % (35.4-49); HEMOGLOBIN 14.2 GM/dL (11.7-16.9); LYMPH % 24.5 % (8-40); MCH 32.6 pg (25.7-33.7); MCHC 34.3 g/dl (32.0-35.9); MEAN CELL VOLUME 94.9 fl (80-96); MEAN PLT VOLUME 9.2 fl (7.5-11.1); MONO % 9.1 % (3.8-10.2); NEUT % 62.3 % (42.8-82.8); PLATELET COUNT 235 K/MM3 (134-434); RBC 4.35 M/mm3 (4.00-5.60); RDW 13.2 % (11.9-15.9); WHITE BLOOD COUNT 6.5 K/mm3 (4.0-10.0)
[2018-04-10 18:07] LABS: INR 1.03 (0.83-1.09); PROTHROMBIN TIME (PATIENT) 12.2 SEC (9.7-13.0)
[2018-04-10 18:10] LABS: ACTIVATED PTT 32.3 SECONDS (25.2-36.5)
[2018-04-10 18:18] LABS: ALK PHOS 63 U/L (45-117); ANION GAP 13 MMOL/L (8-16); BLOOD UREA NITROGEN 26 mg/dL (7-18); CHLORIDE 105 mmol/L (98-107); CO2 23 mmol/L (21-32); CREATININE 1.3 mg/dL (0.55-1.3); GLUCOSE,RANDOM 96 mg/dL (74-106); SGOT/AST 35 U/L (15-37); SGPT/ALT 27 U/L (13-61); SODIUM 141 mmol/L (136-145); TOT PROT 6.9 g/dl (6.4-8.2)
--- NOTE | 2018-04-10 19:07 | PDOC ---
Attending Attestation - HPI HPI: 04/10/18 19:09 The patient is a 77 year old male with a significant past medical history of CAD s/p stents x2 (2017), HTN, and DM who presents to the ED, sent by PCP, with 3 days of shortness of breath and cough. Patient was at his PCP office earlier today and was told to come into the ED today for new PVC changes on ECG. Patient also reports 3 days of dyspnea on exertion, high blood pressure and a dry cough. Denies chest pain or palpitations. Denies nausea or vomiting. Denies fever or chills. Denies any other symptoms. 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 PCP: Dr. Perez - Physicial Exam PE: 04/10/18 19:10 Constitutional: Awake, alert, oriented. No acute distress. Head: Normocephalic. Atraumatic Eyes: PERRL. EOMI. Conjunctivae are not pale. ENT: Mucous membranes are moist and intact. Posterior pharynx without exudates or erythema. Uvula midline. Neck: Supple. Full ROM. No lymphadenopathy. Cardiovascular: Regular rate. Regular rhythm. S1, S2 regular. Distal pulses are 2+ and symmetric. Pulmonary/Chest: No evidence of respiratory distress. Clear to auscultation bilaterally No wheezing, rales or rhonchi. Abdominal: Soft and non-distended. There is no tenderness. No rebound, guarding or rigidity. No organomegaly. No palpable masses. Good bowel sounds. Back: No CVA tenderness. Musculoskeletal: No edema. No cyanosis. No clubbing. Full range of motion in all extremities. Nocalf tenderness. Radial/pedal pulses are intact and 2+ bilaterally Skin: Skin is warm and dry. No petechiae. No purpura. Neurological: Alert and oriented to person, place, and time. Cranial nerves II -XII are grossly intact. Normal speech. Strength is grossly symmetric. No sensory deficits. Psychiatric: Good eye contact. Normal interaction, affect and behavior. <Jamie Goodwin - Last Filed: 04/10/18 19:09> - Resident Resident Name: Genie Hubbard - ED Attending Attestation I have performed the following: I have examined & evaluated the patient, The case was reviewed & discussed with the resident, I agree w/resident's findings & plan, Exceptions are as noted - Medical Decision Making 04/10/18 18:52 I, Dr. Tori Hays, DO, attest that this document has been prepared under my direction and personally reviewed by me in its entirety. I further attest, that it accurately reflects all work, treatment, procedures and medical decision -making performed by me. 04/10/18 18:52 a/p: 77yo male from the [facility] for eval of PVCs, LOMBARDO, and a dry cough -pt states elevated BP despite meds x 3 days -LOMBARDO -was diaphoretic in clinic today -took asa this am -no cp -Francescone is Cards -2 stents in 2017, had cp at that time -will send labs, ekg, cxr -will need obs and consult by cards 04/10/18 19:07 pt with borderline trop cxr poss early congestion -will place in obs 04/10/18 19:46 pt with hx of ef of 38%, cephalization on cxr resident discussed with cards who requests lasix 20mg microblog sent to [facility] - pt pending obs placement <Tori Hays - Last Filed: 04/10/18 19:47> Heart Score/ECG Review - ECG Intrepretation Comment:: 04/10/18 19:07 sinus at 87, pvc, l axis, q waves septally, abnl ekg <Tori Hays - Last Filed: 04/10/18 19:47> Attestations - Attestations 04/10/18 19:10 Documentation prepared by Jamie Goodwin, acting as medical cash poster for Tori Hays DO <Jamie oGodwin - Last Filed: 04/10/18 19:09>
[2018-04-10] MEDS ORDERED: FUROSEMIDE 40 MG/4 ML INJECTABLE VIAL IVPUSH ONE (19:25)
--- NOTE | 2018-04-10 21:28 | HP ---
CHIEF COMPLAINT: SOB PCP: HISTORY OF PRESENT ILLNESS: Patient is a 77 y/o male with a history of CAD s/p 2 stents, HTN, and DM who presents with SOB. He reports he has been having SOB for the past few days. It is worse on exertion. He reports his extremities have not been swollen. He typically sleeps on his side and is able to lay flat. he reports he has not had these symptoms in the past. Patient had chest pain 2 years ago November 2016 where he then received two stents. he denies having any chest pain since then. Patient reports he takes his medications every day. he follows up with Dr. Rodriguez but has not seen him in 3-4 months. Patient currently denies SOB, headache, nausea, vomiting, chest pain, or blurry vision. ER course was notable for: (1) Lasix 20 (2) new EKG changes (3) Recent Travel: denies PAST MEDICAL HISTORY: CAD s/p 2 stents, HTN, HLD, DM PAST SURGICAL HISTORY: Social History: Smoking: denies Alcohol: denies Drugs: Family History: Allergies No Known Allergies Allergy (Unverified 12/23/15 00:47) HOME MEDICATIONS: Home Medications Medication Instructions Recorded Simvastatin 40 mg PO HS 02/19/17 metFORMIN HCL [Metformin HCl] 500 mg PO BID 02/19/17 Clopidogrel Bisulfate [Clopidogrel] 75 mg PO DAILY 03/02/17 Glipizide 5 mg PO DAILY 03/02/17 Metformin HCl [Metformin HCl ER] 1,000 mg PO HS 03/02/17 Metoprolol Tartrate 12.5 mg PO BID 03/02/17 Aspirin 1 mg PO DAILY 04/10/18 Losartan/Hydrochlorothiazide 1 mg PO DAILY 04/10/18 [Losartan-Hctz 100-25 mg Tab] REVIEW OF SYSTEMS CONSTITUTIONAL: Absent: fever, chills, diaphoresis, generalized weakness, malaise, loss of appetite, weight change HEENT: Absent: rhinorrhea, nasal congestion, throat pain, throat swelling, difficulty swallowing, mouth swelling, ear pain, eye pain, visual changes CARDIOVASCULAR: Absent: chest pain, syncope, palpitations, irregular heart rate, lightheadedness , peripheral edema RESPIRATORY: Absent: cough, shortness of breath, dyspnea with exertion, orthopnea, wheezing, stridor, hemoptysis GASTROINTESTINAL: Absent: abdominal pain, abdominal distension, nausea, vomiting, diarrhea, constipation, melena, hematochezia GENITOURINARY: Absent: dysuria, frequency, urgency, hesitancy, hematuria, flank pain, genital pain MUSCULOSKELETAL: Absent: myalgia, arthralgia, joint swelling, back pain, neck pain SKIN: Absent: rash, itching, pallor HEMATOLOGIC/IMMUNOLOGIC: Absent: easy bleeding, easy bruising, lymphadenopathy, frequent infections ENDOCRINE: Absent: unexplained weight gain, unexplained weight loss, heat intolerance, cold intolerance NEUROLOGIC: Absent: headache, focal weakness or paresthesias, dizziness, unsteady gait, seizure, mental status changes, bladder or bowel incontinence PSYCHIATRIC: Absent: anxiety, depression, suicidal or homicidal ideation, hallucinations. PHYSICAL EXAMINATION Vital Signs - 24 hr 04/10/18 17:10 Temperature 97.6 F Pulse Rate 93 H Respiratory 16 Rate Blood Pressure 168/82 O2 Sat by Pulse 98 Oximetry (%) GENERAL: Awake, alert, and fully oriented, in no acute distress. HEAD: Normal with no signs of trauma. EYES: Pupils equal, round and reactive to light, extraocular movements intact, sclera anicteric, EARS, NOSE, THROAT: Ears normal, nares patent, oropharynx clear without exudates. Moist mucous membranes. NECK: + JVD LUNGS: Breath sounds equal, clear to auscultation bilaterally. No wheezes, and no crackles. No accessory muscle use. HEART: Regular rate and rhythm, normal S1 and S2 without murmur, rub or gallop. ABDOMEN: Soft, nontender, not distended, normoactive bowel sounds, no guarding, no rebound, no masses. MUSCULOSKELETAL: Normal range of motion at all joints. No bony deformities or tenderness. No CVA tenderness. LOWER EXTREMITIES: 1+ pitting edema NEUROLOGICAL: Cranial nerves II-XII intact. Normal speech. Normal gait. PSYCHIATRIC: Cooperative. Good eye contact. Appropriate mood and affect. SKIN: Warm, dry, normal turgor, no rashes or lesions noted, normal capillary refill. CBC, BMP 04/10/18 17:17 04/10/18 17:17 ASSESSMENT/PLAN: Patient is a 77 y/o male with a history of CAD s/p 2 stents, HTN, and DM who presents with SOB. #EKG changes r/o ACS - troponin neg x 2 - EKG showed new inverted twaves in inferior leads, f/u repeat EKG - negative chest pain - Dr Wilson contacted, ordered 20 IV lasix - f/u with cardio - f/u new echo - stress test in 03/03 showed EF: 38%, left ventricle severe inferior wall hypokinesis - possibly another stress test - [facility] classification: II - admit tele obs #SOB 2/ probable new onset CHF - lasix 20 mg given in ED - lasix 40 IV daily - fluid restriction - changed statin to atorvastatin 40 mg daily - changed metoprolol tartate to metoprolol succinate 50 mg daily - BNP: 4734 - f/u lipid, TSH - CXR: blunting R chostophrenic angle, cephalization of lungs #CAD - continue clopidogrel, continue aspirin #HTN - continue losartan- HCTZ #DM - continue metformin - continue glipizide - A1C: 6.5 Visit type - Emergency Visit Emergency Visit: Yes ED Registration Date: 04/10/18 Care time: The patient presented to the Emergency Department on the above date and was hospitalized for further evaluation of their emergent condition. - New Patient This patient is new to me today: Yes Date on this admission: 04/11/18 - Critical Care Critical Care patient: No
[2018-04-10] MEDS ORDERED: METOPROLOL TARTRATE 25 MG TABLET (FP) ONE (21:41)
[2018-04-10] MEDS ORDERED: METOPROLOL TARTRATE 50 MG TABLET (FP) ONE (21:41)
[2018-04-10] MEDS ORDERED: ATORVASTATIN CA 40 MG TABLET (FP) ONE (21:42)
[2018-04-10] MEDS ORDERED: metFORMIN HCL 500 MG TABLET (FP) ONE (21:44)
[2018-04-10] MEDS ORDERED: FUROSEMIDE 40 MG TABLET (FP) ONE (21:44)
[2018-04-10] MEDS: METOPROLOL TARTRATE 25 MG TABLET (FP) PO SCH (22:29)
[2018-04-10] MEDS: ATORVASTATIN CA 40 MG TABLET (FP) PO SCH (22:29)
--- NOTE | 2018-04-10 22:31 | PN ---
Teaching Attending Note Name of Resident: Fay Benitez ATTENDING PHYSICIAN STATEMENT I saw and evaluated the patient. I reviewed the resident's note and discussed the case with the resident. I agree with the resident's findings and plan as documented. SUBJECTIVE: Seen and examined; he is a 77 y/o CM with a PMH significant for CAD, HTN, DM, s/ p PCIx2 2017 with last stress test in 2017. He presents with progressive SOB on exertion as well as some LE swelling symmetric bilaterally. He is off O2 and able to ambulate >100 feet without becoming short of breath. He denies any history of CHF and has never been on Lasix, etc. EF was 38% with inferior and apical wmas seen on stress test. He is currently on optimized cardiac therapy with BB, ASA, Statin, and Plavix. He denies chest pain, etc. No echo. Denies orthopnea or PND PMH as discussed PSH for PCI Social negative for etoh, drugs FH asked and noncontributory OBJECTIVE: VSS, labs and imaging reviewed. Troponin flat, BNP elevated NAD, resting in bed and able to ambulate without O2 around the ED RRR s1/2 Lung exam nonrevealing Mild to mod JVD, trachea midline, 1-2+ pitting edema b/l sym ASSESSMENT AND PLAN: Mr. Walls is a 77 y/o CM with a cardiac history of CAD s/p PCI and known low EF from stress test who presents with sx suspicious of CHF exacerbation. He is hemodynamically stable and afebrile and saturating well on RA. Will place him on observation for workup of this issue. 1) LE swelling with dyspnea on exertion -Known low EF from NST but suboptimal analysis on this compared to 2D echo. Will check 2D echocardiogram. He has NYHA-II presentation. -Convert metoprolol tartrate to succinate for GDMT -Lasix IV 40 QD; monitor Cr and lytes; likely will need DC on lasix -Consider CV consult in AM -Consideration of other therapies (spironolactone, hydralazine, etc.) once more information about his cardiac status elucidated via echocardiogram. Troponins are flat; based on history this is likely not any acute ACS picture. -Continue ISABELLA -Monitor Is, Os, daily weights. 2) CAD s/p PCI -Continue BB (change to succ), plavix, aspirin. -Change simvastatin to GDMT with atorvastatin 3) Diabetes -SSI while inpatient -Consider stopping sulfonylurea on discharge given the pateint's age and recent data regarding sulfonylureas in the elderly. 4) HTN -Continue home medications 5) HLD -Statin Full Code
[2018-04-11] MEDS ORDERED: SENNOSIDES/DOCUSATE COMBO (SENNA PLUS) TABLET (UD) PO SCH (00:30)
[2018-04-11] MEDS ORDERED: LACTATED RINGERS SOLUTION 1,000 ML/1,000 ML INFUS.BAG IV SCH (00:30)
[2018-04-11] MEDS ORDERED: glipiZIDE 5 MG TABLET (FP) ONE (06:38)
[2018-04-11] MEDS ORDERED: metFORMIN HCL 500 MG TABLET (FP) ONE (06:38)
[2018-04-11] MEDS ORDERED: glipiZIDE 5 MG TABLET (FP) PO SCH (07:00)
[2018-04-11] MEDS ORDERED: metFORMIN HCL 500 MG TABLET (FP) PO SCH ×4 (07:00→16:30)
--- NOTE | 2018-04-11 08:37 | CON.CARD ---
Cardiology Consult (text) - Consultation Consultation Note: Cardiology Consult Dictated IMP: CAD s/p PCI Chronic systolic CHF with moderate to severe LV dysfx , EF 35-40% LOMBARDO Atypical CP REC: 1. 3rd cardiac enzyme 2.Echo 3. Elevated BNP is chronic due to cardiomyopathy, does not appear to be in decompensated CHF at this time. Plan for Lexiscan MPI today, c/w 02/2017 at which time he had moderate inferior scarring w/ EF 35-40%
[2018-04-11] MEDS: METOPROLOL TARTRATE 25 MG TABLET (FP) PO SCH (09:25)
[2018-04-11] MEDS: ASPIRIN 81 MG CHEWABLE TABLETS PO SCH (09:25)
[2018-04-11] MEDS: CLOPIDOGREL BISULFATE 75 MG TABLET (FP) PO SCH (09:25)
[2018-04-11] MEDS: LOSARTAN POTASSIUM 50 MG TABLET (FP) PO SCH (09:25)
--- NOTE | 2018-04-11 09:30 | EKG ---
Test Reason : Blood Pressure : / mmHG Vent. Rate : 086 BPM Atrial Rate : 086 BPM P-R Int : 172 ms QRS Dur : 114 ms QT Int : 404 ms P-R-T Axes : 016 -44 -19 degrees QTc Int : 483 ms SINUS RHYTHM WITH FREQUENT PREMATURE VENTRICULAR COMPLEXES LEFT AXIS DEVIATION SEPTAL INFARCT (CITED ON OR BEFORE 02-MAR-2017) ABNORMAL ECG WHEN COMPARED WITH ECG OF 10-APR-2018 17:23, NO SIGNIFICANT CHANGE WAS FOUND Confirmed by DIMITRI RUSSELL MD ([id number]) on 04/11/2018 9:29:42 AM Referred By: Confirmed By:DIMITRI RUSSELL MD
--- NOTE | 2018-04-11 09:38 | EKG ---
Test Reason : Blood Pressure : / mmHG Vent. Rate : 087 BPM Atrial Rate : 087 BPM P-R Int : 166 ms QRS Dur : 122 ms QT Int : 390 ms P-R-T Axes : 016 -44 029 degrees QTc Int : 469 ms SINUS RHYTHM WITH FREQUENT PREMATURE VENTRICULAR COMPLEXES LEFT AXIS DEVIATION SEPTAL INFARCT (CITED ON OR BEFORE 02-MAR-2017) ABNORMAL ECG WHEN COMPARED WITH ECG OF 02-MAR-2017 07:57, NO SIGNIFICANT CHANGE WAS FOUND Confirmed by DIMITRI RUSSELL MD ([id number]) on 04/11/2018 9:37:41 AM Referred By: Confirmed By:DIMITRI RUSSELL MD
[2018-04-11] MEDS ORDERED: POLYETHYLENE GLYCOL 3350 119 GM BTL PO SCH (10:00)
[2018-04-11] MEDS ORDERED: PATIENT'S OWN MEDICATION (NON-FORMULARY) (Losartan/Hydrochlorothiazide [Losartan-Hctz 100- PO SCH (10:00)
[2018-04-11] MEDS ORDERED: HYDROCHLOROTHIAZIDE 25 MG TABLET (FP) PO SCH (10:00)
[2018-04-11] MEDS ORDERED: FUROSEMIDE 40 MG/4 ML INJECTABLE VIAL IVPUSH SCH (10:00)
--- NOTE | 2018-04-11 10:00 | CONS ---
DATE OF CONSULTATION: 04/11/2018 REQUESTING PHYSICIAN: Chyna Cruz MD REASON FOR CONSULTATION: Shortness of breath and chest pain. HISTORY OF PRESENT ILLNESS: Patient is my office patient. He is a 77-year-old male with a past medical history of diabetes, coronary artery disease status post PCI, chronic ischemic cardiomyopathy with moderate to severely reduced LV systolic function between 35% and 40%. He presents to the emergency room with several days of exertional dyspnea. He states that over the last 1-3 weeks, he has had occasional dyspnea with stairs. He denies substernal chest pressure or pain. He denies symptoms consistent with his previous angina symptoms. He denies fever, chills, or productive cough. He has had no recent sick contacts or prolonged air travel. Emergency department course was notable for 2 sets of cardiac enzymes which were negative and an elevated BNP level which seems out of proportion to his clinical examination. PAST MEDICAL HISTORY: As above and also includes hypertension. ALLERGIES: He has no known drug allergies. CURRENT MEDICATIONS: Include aspirin 81 mg daily, atorvastatin 40 mg p.o. at bedtime, clopidogrel 75 mg p.o. daily, furosemide 40 mg IV daily, glipizide 5 mg p.o. daily, hydrochlorothiazide 25 mg p.o. daily, losartan 100 mg p.o. daily, metformin 1000 mg p.o. daily, and metoprolol tartrate 12.5 mg p.o. b.i.d. FAMILY HISTORY: Noncontributory. 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 He is a former smoker. He lives in [place] with his . PHYSICAL EXAMINATION: Vital signs: Temperature 98.3, blood pressure 150/80, O2 saturation is 98% on room air. Neck: There is no JVD, no carotid bruits. Heart: Regular. Chest: Clear bilaterally with no rales. Abdomen: Obese, soft, nontender. Extremities: No edema. DIAGNOSTIC DATA: Serial ECGs were reviewed showing normal sinus rhythm with intraventricular conduction delay, no acute ST changes, cannot rule out old septal DC, PVCs. LABORATORY DATA: CBC is normal. INR is normal 1.03. Sodium 141, potassium 4, BUN 26, creatinine 1.3, CK 63. Troponin 0.04, 0.04. BNP is 4734. CHEST X-RAY: Mild cardiomegaly, increased interstitial markings, no effusions. IMPRESSION: 1. Coronary artery disease status post percutaneous coronary intervention. 2. Chronic systolic congestive heart failure with moderate to severe left ventricular dysfunction with ejection fraction between 35% and 40%. 3. Dyspnea on exertion. 4. Atypical chest pain. RECOMMENDATIONS: 1. Third cardiac enzyme this morning. 2. Echocardiogram for EF assessment, rule out pericardial disease. 3. His elevated BNP is chronic and due to chronic systolic CHF, cardiomyopathy; clinically, he does not appear to be in decompensated CHF at this time. Will plan for Lexiscan myocardial perfusion imaging today and compare with his 2017 result at which time he was found to have scarring in the inferior distribution with no significant ischemia and an EF of 35% to 40%. If significant changes are seen, can continue repeat cardiac catheterization. If findings are overall unchanged, can discharge with close outpatient followup and Lasix 40 mg p.o. daily. Dedrick HUSSEIN/[id number]
--- NOTE | 2018-04-11 10:43 | ECHO ---
Name: JACK GOVEA Exam:Adult Echocardiogram Study Date: 04/11/2018 09:20 AM Age: 77 yrs Reason For Study: CHF Height: 68 in Weight: 180 lb BSA: 2.0 m2 MMode/2D Measurements & Calculations IVSd: 1.1 cm LA dimension: 4.2 cm LVIDd: 6.0 cm LVIDs: 4.4 cm LVPWd: 1.0 cm LVPWs: 1.4 cm EDV(Teich): 180.0 ml ESV(Teich): 85.6 ml Doppler Measurements & Calculations MV E max matthieu: 89.2 cm/sec Ao V2 max: 134.7 cm/sec MV A max matthieu: 41.7 cm/sec Ao max P.3 mmHg MV E/A: 2.1 AI P1/2t: 337.2 msec MV dec time: 0.24 sec AI max matthieu: 320.2 cm/sec LV V1 max P.7 mmHg AI max P.1 mmHg LV V1 max: 82.5 cm/sec AI dec slope: 278.1 cm/sec2 MR max matthieu: 439.4 cm/sec PA V2 max: 101.8 cm/sec MR max P.2 mmHg PA max P.1 mmHg Med Peak E' Matthieu: 5.7 cm/sec Med E/e': 15.8 Lat Peak E' Matthieu: 6.4 cm/sec Lat E/e': 13.9 Left Ventricle Ejection Fraction = 30-35%. There is moderate to severe global hypokinesis of the left ventricle. Right Ventricle The right ventricle is grossly normal size. The right ventricular systolic function is grossly normal . Atria The left atrium is mildly dilated. Mitral Valve There is mild mitral annular calcification. There is no mitral valve stenosis. There is mild mitral regurgitation. Tricuspid Valve The tricuspid valve is not well visualized, but is grossly normal. Aortic Valve The aortic valve is not well visualized. No hemodynamically significant valvular aortic stenosis. Mil d aortic regurgitation. There is an eccentric jet of aortic insufficiency directed against the anterior mitral leaflet. Severity of aortic regurgitation may be underestimated due to eccentric nature of regurgitant jet. Pulmonic Valve The pulmonic valve is not well seen, but is grossly normal. There is no pulmonic valvular stenosis. Great Vessels Borderline dilated ascending aorta. Pericardium/Pleura There is no pericardial effusion. Interpretation Summary Borderline dilated ascending aorta. Ejection Fraction = 30-35%. There is moderate to severe global hypokinesis of the left ventricle. The right ventricular systolic function is grossly normal. The left atrium is mildly dilated. There is mild mitral annular calcification. There is mild mitral regurgitation. Mild aortic regurgitation. There is an eccentric jet of aortic insufficiency directed against the anterior mitral leaflet. Severity of aortic regurgitation may be underestimated due to eccentric nature of regurgitant jet. MD Guerrero *Jennifer 04/11/2018 10:43 AM
[2018-04-11] MEDS ORDERED: REGADENOSON 0.4 MG/5 ML PRE-FILLED SYRINGE IVPUSH ONE (11:03)
[2018-04-11] MEDS ORDERED: AMINOPHYLLINE 250 MG/10 ML VIAL ONE (14:56)
--- NOTE | 2018-04-11 16:20 | PN ---
Teaching Attending Note Name of Resident: Pradip Lyman ATTENDING PHYSICIAN STATEMENT I saw and evaluated the patient. I reviewed the resident's note and discussed the case with the resident. I agree with the resident's findings and plan as documented. SUBJECTIVE: CC: LOMBARDO He is a very pleasnat M with CAD, PCI 2 years ago ,adherent to medication and diet, was sent from his PMD office with complaints of LOMBARDO for 3 days. He states that he wa in his [facility] till 3 days ago, since then has very mild, LOMBARDO, with no other cardiopulmonary complaints while walking up the stairs. He has no other complaints. states that symptoms are so different from his previous CP resulting in the cath and PCI 2 years ago. he was evaluated in the ED by cardiology and underwent SPECT today with ED 35% and diffuse fixed ischemia in the inf aspect, similar to previous findings and as he as frequent PVC he is to get MUG scan and possible need for AICD. OBJECTIVE: Last Vital Signs Temp Pulse Resp BP Pulse Ox 98 F 90 18 130/70 96 04/11/18 16:20 04/11/18 16:02 04/11/18 16:02 04/11/18 16:20 04/11/18 10:00 Selected Entries 04/11/18 01:30 Temperature 98.3 F CBCD WBC 6.5 K/mm3 (4.0-10.0) 04/10/18 17:17 RBC 4.35 M/mm3 (4.00-5.60) 04/10/18 17:17 Hgb 14.2 GM/dL (11.7-16.9) 04/10/18 17:17 Hct 41.3 % (35.4-49) 04/10/18 17:17 MCV 94.9 fl (80-96) 04/10/18 17:17 MCHC 34.3 g/dl (32.0-35.9) 04/10/18 17:17 RDW 13.2 % (11.9-15.9) 04/10/18 17:17 Plt Count 235 K/MM3 (134-434) 04/10/18 17:17 MPV 9.2 fl (7.5-11.1) 04/10/18 17:17 CMP Sodium 141 mmol/L (136-145) 04/10/18 17:17 Potassium 4.0 mmol/L (3.5-5.1) 04/10/18 17:17 Chloride 105 mmol/L (98-107) 04/10/18 17:17 Carbon Dioxide 23 mmol/L (21-32) 04/10/18 17:17 Anion Gap 13 MMOL/L (8-16) 04/10/18 17:17 BUN 26 mg/dL (7-18) H 04/10/18 17:17 Creatinine 1.3 mg/dL (0.55-1.3) 04/10/18 17:17 Creat Clearance w eGFR 53.39 (>60) 04/10/18 17:17 Random Glucose 96 mg/dL (74-106) 04/10/18 17:17 Calcium 9.0 mg/dL (8.5-10.1) 04/10/18 17:17 Total Bilirubin 1.0 mg/dL (0.2-1) 04/10/18 17:17 AST 35 U/L (15-37) 04/10/18 17:17 ALT 27 U/L (13-61) 04/10/18 17:17 Alkaline Phosphatase 63 U/L (45-117) 04/10/18 17:17 Total Protein 6.9 g/dl (6.4-8.2) 04/10/18 17:17 Albumin 4.0 g/dl (3.4-5.0) 04/10/18 17:17 CARDIAC ENZYMES Creatine Kinase 295 IU/L (26-308) 04/11/18 09:00 Troponin I 0.02 ng/ml (0.00-0.05) 04/11/18 09:00 very pleasant elderly gentle man in no distress, siting, CVS:S1S2, + murmur CTAB aBDl bs+ No NASEEM edema ASSESSMENT AND PLAN: LOMBARDO in a patient with knwon CAD, s/p PCI 3 years ago, EF 35%, and multiple PVCs :No new ischemic changes on SPECT Will change the medication according to cardiology recs is to get MUGA scan and posisble AICD on Saturday check K, Mg and replete with goal Mg>2, K>4 rest of the management per HS note
--- NOTE | 2018-04-11 18:34 | PN ---
Physical Exam: SUBJECTIVE: Patient seen and examined at bedside. States he has been sob for past few days. Currently denies sob. Sitting comfortably. OBJECTIVE: Vital Signs Period Temp Pulse Resp BP Sys/Koch Pulse Ox Last 24 Hr 97.8 F-99.0 F 74-90 18-18 130-160/70-78 96-98 GENERAL: AAOx3, NAD HEAD: NC/AT EYES: EOMI PERRLA ENT: MMM NECK: Supple no jvd. . LUNGS:CTA B/L, no rales rhonchi or wheezing HEART: Irregular ABDOMEN: ND NT No HSM EXTREMITIES: 1+ pitting edema NEUROLOGICAL: CN 2-12 intact PSYCH: Normal mood, normal affect. SKIN: Warm, dry, normal turgor, no rashes or lesions noted Laboratory Results - last 24 hr 04/10/18 04/10/18 04/10/18 21:35 21:35 21:35 POC Glucometer Hemoglobin A1c % 6.5 H Creatine Kinase Creatine Kinase Index CK-MB (CK-2) Troponin I 0.04 B-Natriuretic Peptide 4734.4 H Triglycerides Cholesterol Total LDL Cholesterol HDL Cholesterol TSH 04/11/18 04/11/18 04/11/18 09:00 09:00 17:54 POC Glucometer 165 Hemoglobin A1c % Creatine Kinase 295 Creatine Kinase Index 2.3 CK-MB (CK-2) 7.0 H Troponin I 0.02 B-Natriuretic Peptide Triglycerides 140 Cholesterol 134 Total LDL Cholesterol 75 HDL Cholesterol 45 TSH 1.27 Active Medications Generic Name Dose Route Start Last Admin Trade Name Freq PRN Reason Stop Dose Admin Aspirin 81 mg 04/11/18 10:00 04/11/18 09:25 Asa - PO 81 mg DAILY YELENA Administration Atorvastatin Calcium 40 mg 04/10/18 22:00 04/10/18 22:29 Lipitor - PO 40 mg HS YELENA Administration Clopidogrel Bisulfate 75 mg 04/11/18 10:00 04/11/18 09:25 Plavix - PO 75 mg DAILY YELENA Administration Furosemide 40 mg 04/11/18 10:00 04/11/18 09:25 Lasix Injection - IVPUSH 40 mg DAILY YELENA Administration Glipizide 5 mg 04/11/18 07:00 04/11/18 06:41 Glucotrol - PO 5 mg DAILY@0700 YELENA Administration Losartan Potassium 100 mg 04/11/18 10:00 04/11/18 09:25 Cozaar - PO 100 mg DAILY YELENA Administration Metformin HCl 500 mg 04/11/18 07:00 04/11/18 06:41 Glucophage - PO 500 mg 0700 YELENA Administration Metformin HCl 1,000 mg 04/11/18 16:30 04/11/18 17:55 Glucophage - PO 1,000 mg DAILY@1630 YELENA Administration Metoprolol Succinate 12.5 mg 04/12/18 10:00 Toprol Xl - PO DAILY YELENA Spironolactone 25 mg 04/12/18 10:00 Aldactone - PO DAILY [facility] ASSESSMENT/PLAN: Patient is a 77 y/o male with a history of CAD s/p 2 stents, HTN, and DM who presents with SOB. # SOB 2/2 Chronic systolic CHF -Dr Rodriguez on board - troponin neg x 3 - EKG showed new inverted twaves in inferior leads, f/u repeat EKG - negative chest pain - stress test in 03/03 showed EF: 38%, left ventricle severe inferior wall hypokinesis - TACHO classification: II -Pt underwent nuclear stress test earlier today. Following results: Nuclear stress with no ischemia, dilated LV, inferior scar, EF 36%. -Cont IV Lasix for next 24-48 hours -D/C Lopressor, switch to Toprol XL - Aldactone 25 mg po daily - Per cardiology will switch Losartan to Entresto -MUGA scan Saturday to further assess EF.Possible ICD placement. #CAD - Clopidegrel 75 mg po daily - aspirin 81 mg -Atorvastatin 40 mg po hs #HTN - Cozaar 100 mg po daily #DM Insulin Sliding Scale - A1C: 6.5 #FEN No Fluids Monitor Electrolytes Diabetic Sodium Diet DVT ppx: Hep SQ TID Dispo: Tele Visit type - Emergency Visit Emergency Visit: Yes ED Registration Date: 04/10/18 Care time: The patient presented to the Emergency Department on the above date and was hospitalized for further evaluation of their emergent condition. - New Patient This patient is new to me today: Yes Date on this admission: 04/11/18 - Critical Care Critical Care patient: No - Discharge Referral Referred to [facility] Med P.C.: No
[2018-04-11] MEDS: INSULIN SLIDING SCALE (NOVOLOG) 1 VIAL SQ SCH (21:14)
[2018-04-11] MEDS: HEPARIN NA (PORCINE) 5,000 UNITS/ML 1ML VIAL SQ SCH (21:15)
[2018-04-11] MEDS: ATORVASTATIN CA 40 MG TABLET (FP) PO SCH (21:15)
[2018-04-12] MEDS: HEPARIN NA (PORCINE) 5,000 UNITS/ML 1ML VIAL SQ SCH ×3 (06:34→21:57)
[2018-04-12] MEDS: INSULIN SLIDING SCALE (NOVOLOG) 1 VIAL SQ SCH ×4 (06:34→21:58)
[2018-04-12 07:45] LABS: HEMATOCRIT 40.9 % (35.4-49); HEMOGLOBIN 14.1 GM/dL (11.7-16.9); MCH 32.7 pg (25.7-33.7); MCHC 34.4 g/dl (32.0-35.9); MEAN PLT VOLUME 9.4 fl (7.5-11.1); PLATELET COUNT 219 K/MM3 (134-434)
--- NOTE | 2018-04-12 08:26 | PN ---
Physical Exam: SUBJECTIVE: Patient seen and examined at bedside-no acute events overnight. states he is no longer having shortness of breath or chest pain. He was able to sleep through the night with no complaints. he denies any chest pain, shortness of breahth, n/v fevers or chills. OBJECTIVE: Vital Signs Period Temp Pulse Resp BP Sys/Koch Pulse Ox Last 24 Hr 97.8 F-98.6 F 88-90 18-20 119-158/70-84 96-96 GENERAL: The patient is awake, resting in bed comfortably, NAD EYES: no scleral icterus . NECK: no JVD appreciated LUNGS: CTA B/L; no rales, rhonchi or wheezing HEART:irregular ABDOMEN: Soft, nontender, nondistended, normoactive bowel sounds, no guarding, no rebound, no hepatosplenomegaly, no masses. EXTREMITIES: 2+ pulses, warm, well-perfused, trace edema. . PSYCH: Normal mood, normal affect. SKIN: Warm, dry, normal turgor, no rashes or lesions noted Laboratory Results - last 24 hr 04/11/18 04/11/18 04/11/18 09:00 09:00 17:54 WBC RBC Hgb Hct MCV MCH MCHC RDW Plt Count MPV POC Glucometer 165 Random Glucose Creatine Kinase 295 Creatine Kinase Index 2.3 CK-MB (CK-2) 7.0 H Troponin I 0.02 Triglycerides 140 Cholesterol 134 Total LDL Cholesterol 75 HDL Cholesterol 45 TSH 1.27 04/11/18 04/11/18 04/12/18 21:12 21:45 06:00 WBC 6.0 RBC 4.30 Hgb 14.1 Hct 40.9 MCV 95.0 MCH 32.7 MCHC 34.4 RDW 13.0 Plt Count 219 MPV 9.4 POC Glucometer 56 Random Glucose 95 Creatine Kinase Creatine Kinase Index CK-MB (CK-2) Troponin I Triglycerides Cholesterol Total LDL Cholesterol HDL Cholesterol TSH 04/12/18 06:30 WBC RBC Hgb Hct MCV MCH MCHC RDW Plt Count MPV POC Glucometer 120 Random Glucose Creatine Kinase Creatine Kinase Index CK-MB (CK-2) Troponin I Triglycerides Cholesterol Total LDL Cholesterol HDL Cholesterol TSH Active Medications Generic Name Dose Route Start Last Admin Trade Name Freq PRN Reason Stop Dose Admin Aspirin 81 mg 04/11/18 10:00 04/11/18 09:25 Asa - PO 81 mg DAILY YELENA Administration Atorvastatin Calcium 40 mg 04/10/18 22:00 04/11/18 21:15 Lipitor - PO 40 mg HS YELENA Administration Clopidogrel Bisulfate 75 mg 04/11/18 10:00 04/11/18 09:25 Plavix - PO 75 mg DAILY YELENA Administration Furosemide 40 mg 04/11/18 10:00 04/11/18 09:25 Lasix Injection - IVPUSH 40 mg DAILY YELENA Administration Heparin Sodium (Porcine) 5,000 unit 04/11/18 22:00 04/12/18 06:34 Heparin - SQ 5,000 unit TID YELENA Administration Insulin Aspart 1 vial 04/11/18 22:00 04/12/18 06:34 Novolog Vial Sliding Scale - SQ Not Given ACHS [facility] Protocol Losartan Potassium 100 mg 04/11/18 10:00 04/11/18 09:25 Cozaar - PO 100 mg DAILY YELENA Administration Metoprolol Succinate 12.5 mg 04/12/18 10:00 Toprol Xl - PO DAILY [facility] Spironolactone 25 mg 04/12/18 10:00 Aldactone - PO DAILY [facility] ASSESSMENT/PLAN: SOB 2/2 Chronic systolic CHF -Pt underwent nuclear stress test yesterday. Following results: Nuclear stress with no ischemia, dilated LV, inferior scar, EF 36%. -Cont IV Lasix for next 24-48 hours -D/C Lopressor, switch to Toprol XL - Aldactone 25 mg po daily - Per cardiology will switch Losartan to Entresto -MUGA scan Saturday to further assess EF.Possible ICD placement. #CAD - Clopidegrel 75 mg po daily - aspirin 81 mg -Atorvastatin 40 mg po hs #HTN - Cozaar 100 mg po daily #DM Insulin Sliding Scale - A1C: 6.5 #FEN No Fluids Monitor Electrolytes Diabetic Sodium Diet DVT ppx: Hep SQ TID Problem List - Problems (1) Acute on chronic systolic (congestive) heart failure Code(s): I50.23 - ACUTE ON CHRONIC SYSTOLIC (CONGESTIVE) HEART FAILURE (2) Chest pain Code(s): R07.9 - CHEST PAIN, UNSPECIFIED (3) Dyspnea Code(s): R06.00 - DYSPNEA, UNSPECIFIED Visit type - Emergency Visit Emergency Visit: Yes ED Registration Date: 04/10/18 Care time: The patient presented to the Emergency Department on the above date and was hospitalized for further evaluation of their emergent condition. - New Patient This patient is new to me today: No - Critical Care Critical Care patient: No
[2018-04-12 08:39] LABS: ANION GAP 11 MMOL/L (8-16); BLOOD UREA NITROGEN 33 mg/dL (7-18); CALCIUM 8.9 mg/dL (8.5-10.1); CHLORIDE 103 mmol/L (98-107); CO2 29 mmol/L (21-32); CREATININE 1.8 mg/dL (0.55-1.3); GLUCOSE,RANDOM 114 mg/dL (74-106); MAGNESIUM 1.7 mg/dL (1.8-2.4); PHOSPHOROUS 3.9 mg/dL (2.5-4.9); POTASSIUM 4.4 mmol/L (3.5-5.1); SODIUM 143 mmol/L (136-145)
[2018-04-12] MEDS ORDERED: MAGNESIUM OXIDE 400 MG TABLET (FP) PO ONE (09:02)
[2018-04-12] MEDS: SPIRONOLACTONE 25 MG TABLET (FP) PO SCH (09:43)
[2018-04-12] MEDS: ASPIRIN 81 MG CHEWABLE TABLETS PO SCH (09:43)
[2018-04-12] MEDS: CLOPIDOGREL BISULFATE 75 MG TABLET (FP) PO SCH (09:43)
[2018-04-12] MEDS ORDERED: metoPROLOL SUCCINATE 25 MG TAB.SR.24H (FP) PO SCH (10:00)
--- NOTE | 2018-04-12 10:47 | PN ---
Progress Note, Physician Chief Complaint: Pt A&Ox3; sitting up at bedside, with and son visiting. He has no complaints (no dyspnea, chest pain, palpitations, dizziness); slept well; good appetie (ate full breakfast). History of Present Illness: 77 year old patient with history of CAD 2 stents (2015) HTN and DM who presents with 2 days of exertion shortness of breath. He admits to 2-3 of dry cough but denies any other URI symptoms. Per clinc patient was seen at, new EKG changes and patient had some diaphroessis and dyspnea with mild chest tightness. The patient denies chest pain, palpitations or lightheadedness, denies any recent long flights, drives or travel, denies any coughing sneezing past smoker quit 15 tears ago Clinical Informatics Director is Dr. Rodriguez. - Current Medication List Current Medications: Active Medications Aspirin (Asa -) 81 mg PO DAILY [facility] Last Admin: 04/12/18 09:43 Dose: 81 mg Atorvastatin Calcium (Lipitor -) 40 mg PO HS [facility] Last Admin: 04/11/18 21:15 Dose: 40 mg Clopidogrel Bisulfate (Plavix -) 75 mg PO DAILY [facility] Last Admin: 04/12/18 09:43 Dose: 75 mg Heparin Sodium (Porcine) (Heparin -) 5,000 unit SQ TID [facility] Last Admin: 04/12/18 06:34 Dose: 5,000 unit Insulin Aspart (Novolog Vial Sliding Scale -) 1 vial SQ ACHS [facility]; Protocol Last Admin: 04/12/18 06:34 Dose: Not Given Losartan Potassium (Cozaar -) 100 mg PO DAILY [facility] Last Admin: 04/11/18 09:25 Dose: 100 mg Metoprolol Succinate (Toprol Xl -) 12.5 mg PO DAILY [facility] Last Admin: 04/12/18 09:43 Dose: 12.5 mg Spironolactone (Aldactone -) 25 mg PO DAILY [facility] Last Admin: 04/12/18 09:43 Dose: 25 mg - Objective Vital Signs: Vital Signs Temperature 97.8 F 04/12/18 05:00 Pulse Rate 88 04/12/18 05:00 Respiratory Rate 18 04/12/18 05:00 Blood Pressure 149/74 04/12/18 05:00 O2 Sat by Pulse Oximetry (%) 96 04/12/18 05:00 Constitutional: Yes: Well Nourished Eyes: Yes: WNL HENT: Yes: WNL Neck: Yes: WNL Cardiovascular: Yes: Regular Rate and Rhythm, S1, S2 Respiratory: Yes: WNL Gastrointestinal: Yes: Soft, Abdomen, Obese ...Rectal Exam: Yes: Deferred Genitourinary: No: Anuria Breast(s): Yes: WNL Musculoskeletal: Yes: WNL Extremities: Yes: WNL Edema: No Peripheral Pulses WNL: Yes Integumentary: Yes: WNL Neurological: Yes: WNL Psychiatric: Yes: WNL Labs: CBC, BMP 04/12/18 06:00 04/12/18 06:00 INR, PTT INR 1.03 (0.83-1.09) 04/10/18 17:20 - ....Imaging Other: Image Reviewed (telemetry:NSR; APCS and rare PVCs) Problem List - Problems (1) Acute on chronic systolic (congestive) heart failure Assessment/Plan: Furosemide and ARB held today due to sudden spike in Cr. F/u BUn/Cr, electrolytes, Is and Os, daily weights. TSH WNL. Pt for MUGA next week; may require ICD (ECHO notes significant LV dysfunction). Code(s): I50.23 - ACUTE ON CHRONIC SYSTOLIC (CONGESTIVE) HEART FAILURE (2) Diabetes Code(s): E11.9 - TYPE 2 DIABETES MELLITUS WITHOUT COMPLICATIONS (3) HTN (hypertension) Code(s): I10 - ESSENTIAL (PRIMARY) HYPERTENSION (4) Hx of heart artery stent Assessment/Plan: 2 stents (2015) ON ASA and clopidogrel; on statin (LDL 75 mg/dL; consider increasing dose of atorvastatin). Code(s): Z95.5 - PRESENCE OF CORONARY ANGIOPLASTY IMPLANT AND GRAFT (5) Obesity Code(s): E66.9 - OBESITY, UNSPECIFIED
--- NOTE | 2018-04-12 12:05 | PN ---
Teaching Attending Note Name of Resident: Elenita Nickerson ATTENDING PHYSICIAN STATEMENT I saw and evaluated the patient. I reviewed the resident's note and discussed the case with the resident. I agree with the resident's findings and plan as documented. SUBJECTIVE: He has no complaints at this time. on reviewing the tele, he has very high burden of PVCS OBJECTIVE: very pleasant elderly gentle man in no distress, siting, CVS:S1S2, + murmur CTAB ABD: bs+ No NASEEM edema Current Medications Selected Entries 04/11/18 04/11/18 04/12/18 06:58 16:02 01:00 Pulse Rate 90 89 Blood Pressure 158/84 Blood Pressure 147/78 [Left Arm] 04/12/18 05:00 Pulse Rate 88 Blood Pressure 149/74 Blood Pressure [Left Arm] Labs: Laboratory Tests 04/10/18 04/10/18 04/11/18 17:17 17:17 17:54 Hgb 14.2 Hct 41.3 Plt Count 235 Sodium 141 Potassium 4.0 Carbon Dioxide 23 BUN 26 H Creatinine 1.3 POC Glucometer 165 Magnesium 04/11/18 04/12/18 04/12/18 21:12 06:00 06:30 Hgb Hct Plt Count Sodium 143 Potassium 4.4 Carbon Dioxide 29 BUN 33 H Creatinine 1.8 H POC Glucometer 56 120 Magnesium 1.7 L 04/12/18 11:22 Hgb Hct Plt Count Sodium Potassium Carbon Dioxide BUN Creatinine POC Glucometer 155 Magnesium Generic Name Dose Route Start Last Admin Trade Name Freq PRN Reason Stop Dose Admin Aspirin 81 mg 04/11/18 10:00 04/12/18 09:43 Asa - PO 81 mg DAILY YELENA Administration Atorvastatin Calcium 40 mg 04/10/18 22:00 04/11/18 21:15 Lipitor - PO 40 mg HS YELENA Administration Clopidogrel Bisulfate 75 mg 04/11/18 10:00 04/12/18 09:43 Plavix - PO 75 mg DAILY YELENA Administration Heparin Sodium (Porcine) 5,000 unit 04/11/18 22:00 04/12/18 06:34 Heparin - SQ 5,000 unit TID YELENA Administration Insulin Aspart 1 vial 04/11/18 22:00 04/12/18 11:57 Novolog Vial Sliding Scale - SQ 2 units ACHS YELENA Administration Protocol Losartan Potassium 100 mg 04/11/18 10:00 04/11/18 09:25 Cozaar - PO 100 mg DAILY YELENA Administration Metoprolol Succinate 12.5 mg 04/12/18 10:00 04/12/18 09:43 Toprol Xl - PO 12.5 mg DAILY YELENA Administration Spironolactone 25 mg 04/12/18 10:00 04/12/18 09:43 Aldactone - PO 25 mg DAILY YELENA Administration ASSESSMENT AND PLAN: LOMBARDO in a patient with known CAD, s/p PCI 3 years ago, EF 35%, and multiple PVCs :No new ischemic changes on SPECT Will change the medication according to cardiology recs is to get MUGA scan and possible AICD on Saturday which he will likely benefit as the high PVC can both increase the risk of VT as well as worsen the HF. Check K, Mg and replete with goal Mg>2, K>4 high burden of PVCS will increase dose to metoprolol to 25 mg po daily. C/W telemonitoring D/DEBRA HCTZ, start aldactone As outpatient, will switch Losartan to Entresto No finding in favor of volume overload at this time and he looks very dry for CAD: he is on ASA, PLAVIX, Atorvsatatin 40 mg. DM; OFff home medication, can consider basal, bolus insulin regimen HLD: C/W home medication KIMANI: likely prerenal dueto lasix, will hold the lasix FC rest of the management per HS note
[2018-04-12] MEDS ORDERED: METOPROLOL TARTRATE 25 MG TABLET (FP) PO ONE (12:13)
[2018-04-12] MEDS: ATORVASTATIN CA 40 MG TABLET (FP) PO SCH (21:58)
[2018-04-13] MEDS: HEPARIN NA (PORCINE) 5,000 UNITS/ML 1ML VIAL SQ SCH ×3 (06:14→21:33)
[2018-04-13] MEDS: INSULIN SLIDING SCALE (NOVOLOG) 1 VIAL SQ SCH ×4 (06:17→21:34)
[2018-04-13 07:35] LABS: HEMATOCRIT 43.6 % (35.4-49); HEMOGLOBIN 14.5 GM/dL (11.7-16.9); MCH 31.9 pg (25.7-33.7); MCHC 33.2 g/dl (32.0-35.9); MEAN CELL VOLUME 96.1 fl (80-96); PLATELET COUNT 221 K/MM3 (134-434); RBC 4.53 M/mm3 (4.00-5.60); RDW 13.2 % (11.9-15.9); WHITE BLOOD COUNT 6.2 K/mm3 (4.0-10.0)
[2018-04-13 08:46] LABS: ANION GAP 10 MMOL/L (8-16); BLOOD UREA NITROGEN 33 mg/dL (7-18); CALCIUM 9.5 mg/dL (8.5-10.1); CHLORIDE 102 mmol/L (98-107); CO2 28 mmol/L (21-32); CREATININE 1.7 mg/dL (0.55-1.3); GLUCOSE,RANDOM 162 mg/dL (74-106); MAGNESIUM 1.9 mg/dL (1.8-2.4); PHOSPHOROUS 3.4 mg/dL (2.5-4.9); POTASSIUM 4.2 mmol/L (3.5-5.1); SODIUM 141 mmol/L (136-145)
[2018-04-13] MEDS: ASPIRIN 81 MG CHEWABLE TABLETS PO SCH (10:01)
[2018-04-13] MEDS: metoPROLOL SUCCINATE 25 MG TAB.SR.24H (FP) PO SCH (10:01)
[2018-04-13] MEDS: CLOPIDOGREL BISULFATE 75 MG TABLET (FP) PO SCH (10:01)
[2018-04-13] MEDS: SPIRONOLACTONE 25 MG TABLET (FP) PO SCH (10:01)
[2018-04-13] MEDS ORDERED: PT OWN MED DRAWER 7, Y5N ONE (10:02)
[2018-04-13] MEDS: LOSARTAN POTASSIUM 50 MG TABLET (FP) PO SCH (10:04)
--- NOTE | 2018-04-13 10:25 | PN ---
Progress Note, Physician Chief Complaint: Pt A&Ox3; asmptomatic; nervous about possible need for ICD. History of Present Illness: 77 year old patient with history of CAD 2 stents (2016) HTN and DM who presents with 2 days of exertion shortness of breath. He admits to 2-3 of dry cough but denies any other URI symptoms. Per clinc patient was seen at, new EKG changes and patient had some diaphroessis and dyspnea with mild chest tightness. The patient denies chest pain, palpitations or lightheadedness, denies any recent long flights, drives or travel, denies any coughing sneezing past smoker quit 15 tears ago Institutional Commodity Analyst is Dr. Rodriguez. - Current Medication List Current Medications: Active Medications Aspirin (Asa -) 81 mg PO DAILY [facility] Last Admin: 04/13/18 10:01 Dose: 81 mg Atorvastatin Calcium (Lipitor -) 40 mg PO HS [facility] Last Admin: 04/12/18 21:58 Dose: 40 mg Clopidogrel Bisulfate (Plavix -) 75 mg PO DAILY [facility] Last Admin: 04/13/18 10:01 Dose: 75 mg Heparin Sodium (Porcine) (Heparin -) 5,000 unit SQ TID [facility] Last Admin: 04/13/18 06:14 Dose: 5,000 unit Insulin Aspart (Novolog Vial Sliding Scale -) 1 vial SQ [facility]; Protocol Last Admin: 04/13/18 06:17 Dose: 2 units Losartan Potassium (Cozaar -) 100 mg PO DAILY [facility] Last Admin: 04/13/18 10:04 Dose: 100 mg Metoprolol Succinate (Toprol Xl -) 25 mg PO DAILY [facility] Last Admin: 04/13/18 10:01 Dose: 25 mg Spironolactone (Aldactone -) 25 mg PO DAILY [facility] Last Admin: 04/13/18 10:01 Dose: 25 mg - Objective Vital Signs: Vital Signs Temperature 98.2 F 04/13/18 10:00 Pulse Rate 84 04/13/18 10:00 Respiratory Rate 17 04/13/18 10:00 Blood Pressure 133/54 L 04/13/18 10:00 O2 Sat by Pulse Oximetry (%) 97 04/12/18 13:00 Constitutional: Yes: Anxious Eyes: Yes: WNL HENT: Yes: WNL Neck: Yes: WNL Cardiovascular: Yes: S1, S2, S4 Respiratory: Yes: Regular, SOB on Exertion Gastrointestinal: Yes: Soft, Abdomen, Obese ...Rectal Exam: Yes: Deferred Genitourinary: No: Anuria Musculoskeletal: Yes: Joint Stiffness Extremities: Yes: Cool Edema: No Peripheral Pulses WNL: Yes Integumentary: Yes: WNL Neurological: Yes: Alert, Oriented, Weakness Labs: CBC, BMP 04/13/18 06:18 04/13/18 06:18 INR, PTT INR 1.03 (0.83-1.09) 04/10/18 17:20 Problem List - Problems (1) Acute on chronic systolic (congestive) heart failure Assessment/Plan: Furosemide and ARB held again; Cr 1.8-->1.7; BUN unchanged (33). F/u BUn/Cr, electrolytes, Is and Os, daily weights. TSH WNL. Pt for MUGA next week; may require ICD (ECHO notes significant LV dysfunction). Code(s): I50.23 - ACUTE ON CHRONIC SYSTOLIC (CONGESTIVE) HEART FAILURE (2) Diabetes Code(s): E11.9 - TYPE 2 DIABETES MELLITUS WITHOUT COMPLICATIONS (3) HTN (hypertension) Code(s): I10 - ESSENTIAL (PRIMARY) HYPERTENSION (4) Hx of heart artery stent Assessment/Plan: 2 stents (2016) ON ASA and clopidogrel; on statin (LDL 75 mg/dL; consider increasing dose of atorvastatin). Code(s): Z95.5 - PRESENCE OF CORONARY ANGIOPLASTY IMPLANT AND GRAFT (5) Obesity Code(s): E66.9 - OBESITY, UNSPECIFIED
[2018-04-13] MEDS ORDERED: INSULIN (NOVOLOG) ASPART 100 UNITS/ML 10ML VIAL ONE (11:09)
--- NOTE | 2018-04-13 11:41 | PN ---
Progress Note (short form) - Note Progress Note: asymptomatic. denies Cp, SOB, fever, chills, N/V/C/D Current Medications Generic Name Dose Route Start Last Admin Trade Name Juan J PRN Reason Stop Dose Admin Aspirin 81 mg 04/11/18 10:00 04/13/18 10:01 Asa - PO 81 mg DAILY YELENA Administration Atorvastatin Calcium 40 mg 04/10/18 22:00 04/12/18 21:58 Lipitor - PO 40 mg HS YELENA Administration Clopidogrel Bisulfate 75 mg 04/11/18 10:00 04/13/18 10:01 Plavix - PO 75 mg DAILY YELENA Administration Heparin Sodium (Porcine) 5,000 unit 04/11/18 22:00 04/13/18 06:14 Heparin - SQ 5,000 unit TID YELENA Administration Insulin Aspart 1 vial 04/11/18 22:00 04/13/18 11:10 Novolog Vial Sliding Scale - SQ 2 units ACHS YELENA Administration Protocol Losartan Potassium 100 mg 04/11/18 10:00 04/13/18 10:04 Cozaar - PO 100 mg DAILY YELENA Administration Metoprolol Succinate 25 mg 04/13/18 10:00 04/13/18 10:01 Toprol Xl - PO 25 mg DAILY YELENA Administration Spironolactone 25 mg 04/12/18 10:00 04/13/18 10:01 Aldactone - PO 25 mg DAILY YELENA Administration Last Vital Signs Temp Pulse Resp BP Pulse Ox 98.2 F 84 17 133/54 L 97 04/13/18 10:00 04/13/18 10:00 04/13/18 10:00 04/13/18 10:00 04/12/18 13:00 General NAD CBCD WBC 6.2 K/mm3 (4.0-10.0) 04/13/18 06:18 RBC 4.53 M/mm3 (4.00-5.60) 04/13/18 06:18 Hgb 14.5 GM/dL (11.7-16.9) 04/13/18 06:18 Hct 43.6 % (35.4-49) 04/13/18 06:18 MCV 96.1 fl (80-96) H 04/13/18 06:18 MCHC 33.2 g/dl (32.0-35.9) 04/13/18 06:18 RDW 13.2 % (11.9-15.9) 04/13/18 06:18 Plt Count 221 K/MM3 (134-434) 04/13/18 06:18 MPV 9.0 fl (7.5-11.1) 04/13/18 06:18 CMP Sodium 141 mmol/L (136-145) 04/13/18 06:18 Potassium 4.2 mmol/L (3.5-5.1) 04/13/18 06:18 Chloride 102 mmol/L (98-107) 04/13/18 06:18 Carbon Dioxide 28 mmol/L (21-32) 04/13/18 06:18 Anion Gap 10 MMOL/L (8-16) 04/13/18 06:18 BUN 33 mg/dL (7-18) H 04/13/18 06:18 Creatinine 1.7 mg/dL (0.55-1.3) H 04/13/18 06:18 Creat Clearance w eGFR 39.18 (>60) 04/13/18 06:18 Calcium 9.5 mg/dL (8.5-10.1) 04/13/18 06:18 Total Bilirubin 1.0 mg/dL (0.2-1) 04/10/18 17:17 AST 35 U/L (15-37) 04/10/18 17:17 ALT 27 U/L (13-61) 04/10/18 17:17 Alkaline Phosphatase 63 U/L (45-117) 04/10/18 17:17 Total Protein 6.9 g/dl (6.4-8.2) 04/10/18 17:17 Albumin 4.0 g/dl (3.4-5.0) 04/10/18 17:17 A/P 77yo M with PMH DM, CAD s/p stent, CHF and HTN presented to the ER with dyspnea on exertion 1. ACute on chronic Systolic CHF-improved well with lasix IV given on admission. NMST and echo done here showing severely reduced EF. medication were adjusted to be optimize heart failure regimen. ARB will be switched to entresto on discharge. spirolactone started. Echo done showing severely reduced EF. awaiting MUGA scan to further assess LV ot determine if he will need AICD. Cardio following 2. KIMANI- possible from lasix IV. now stable. will hold lasix at this time. trend Cr. 3. CAD s/p stent- statin switched to high intensity. cont home regimen 4. DM- hold oral agents. BGM and ISS 5. DVT ppx- Hep sq 6. spoke with family present at bedside. all questions answered. next step will be pendng results of MUGA Visit type - Emergency Visit Emergency Visit: Yes ED Registration Date: 04/13/18 Care time: The patient presented to the Emergency Department on the above date and was hospitalized for further evaluation of their emergent condition. - New Patient This patient is new to me today: Yes Date on this admission: 04/13/18 - Critical Care Critical Care patient: No - Discharge Referral Referred to [facility] Med P.C.: No
[2018-04-13] MEDS ORDERED: ACETAMINOPHEN 325 MG TABLET (FP) PO PRN (16:23)
[2018-04-13] MEDS: ATORVASTATIN CA 40 MG TABLET (FP) PO SCH (21:34)
[2018-04-14] MEDS: HEPARIN NA (PORCINE) 5,000 UNITS/ML 1ML VIAL SQ SCH ×3 (06:25→21:26)
[2018-04-14 06:43] LABS: ANION GAP 4 MMOL/L (8-16); BLOOD UREA NITROGEN 31 mg/dL (7-18); CALCIUM 9.5 mg/dL (8.5-10.1); CHLORIDE 105 mmol/L (98-107); CO2 30 mmol/L (21-32); CREATININE 1.7 mg/dL (0.55-1.3); GLUCOSE,RANDOM 156 mg/dL (74-106); POTASSIUM 4.3 mmol/L (3.5-5.1); SODIUM 138 mmol/L (136-145)
[2018-04-14] MEDS: INSULIN SLIDING SCALE (NOVOLOG) 1 VIAL SQ SCH ×4 (07:20→21:35)
[2018-04-14] MEDS ORDERED: PT OWN MED DRAWER 7, Y5N ONE (07:44)
--- NOTE | 2018-04-14 08:50 | PN ---
Progress Note, Physician Chief Complaint: Less SOB Lasix and Losartan held over weekend due to bump in creatinine - Current Medication List Current Medications: Active Medications Acetaminophen (Tylenol -) 650 mg PO Q6H PRN PRN Reason: HEADACHE Last Admin: 04/13/18 16:25 Dose: 650 mg Aspirin (Asa -) 81 mg PO DAILY [facility] Last Admin: 04/13/18 10:01 Dose: 81 mg Atorvastatin Calcium (Lipitor -) 40 mg PO HS [facility] Last Admin: 04/13/18 21:34 Dose: 40 mg Clopidogrel Bisulfate (Plavix -) 75 mg PO DAILY [facility] Last Admin: 04/13/18 10:01 Dose: 75 mg Heparin Sodium (Porcine) (Heparin -) 5,000 unit SQ TID [facility] Last Admin: 04/14/18 06:25 Dose: 5,000 unit Insulin Aspart (Novolog Vial Sliding Scale -) 1 vial SQ ACHS [facility]; Protocol Last Admin: 04/14/18 07:20 Dose: Not Given Losartan Potassium (Cozaar -) 100 mg PO DAILY [facility] Last Admin: 04/13/18 10:04 Dose: 100 mg Metoprolol Succinate (Toprol Xl -) 25 mg PO DAILY [facility] Last Admin: 04/13/18 10:01 Dose: 25 mg Spironolactone (Aldactone -) 25 mg PO DAILY [facility] Last Admin: 04/13/18 10:01 Dose: 25 mg - Objective Vital Signs: Vital Signs Temperature 98.6 F 04/14/18 06:00 Pulse Rate 78 04/14/18 06:00 Respiratory Rate 18 04/14/18 06:00 Blood Pressure 143/72 04/14/18 06:00 O2 Sat by Pulse Oximetry (%) 98 04/13/18 21:00 Constitutional: Yes: Calm Cardiovascular: Yes: Regular Rate and Rhythm Respiratory: Yes: CTA Bilaterally (no rales or wheezing) Gastrointestinal: Yes: Soft, Abdomen, Obese Edema: No Neurological: Yes: Alert, Oriented ...Motor Strength: WNL Labs: CBC, BMP 04/13/18 06:18 04/14/18 05:30 INR, PTT INR 1.03 (0.83-1.09) 04/10/18 17:20 Laboratory Tests 04/14/18 05:30 Sodium 138 Potassium 4.3 BUN 31 H Creatinine 1.7 H - ....Imaging EKG: Image Reviewed (NSR with PVCs, occasional couplets.) Assessment/Plan IMP: CAD s/p PCI Chronic systolic CHF with moderate to severe LV dysfx , EF 35-40% LOMBARDO CKD REC: 1. For MUGA scan today to further eval LVEF in order to determine candidacy for ICD 2. Cont Toprol and Aldactone 3. ARB held due to bump in BUN/Creat: if GFR stabilizes, would reintroduce at lower dose. Will consider Entresto as outpatient. If GFR does not allow ARB, then will substitute with Nitrate + Hydral. 4. Outpatient Nephrology consult is planned, has appt. w/ Dr. Chacon. Further reccs re dispo, ICD plan pending today's MUGA.
[2018-04-14 10:22] LABS: ANION GAP 8 MMOL/L (8-16); BLOOD UREA NITROGEN 29 mg/dL (7-18); CALCIUM 9.8 mg/dL (8.5-10.1); CHLORIDE 106 mmol/L (98-107); CO2 27 mmol/L (21-32); CREATININE 1.6 mg/dL (0.55-1.3); GLUCOSE,RANDOM 162 mg/dL (74-106); POTASSIUM 4.4 mmol/L (3.5-5.1); SODIUM 141 mmol/L (136-145)
[2018-04-14] MEDS: CLOPIDOGREL BISULFATE 75 MG TABLET (FP) PO SCH (11:19)
[2018-04-14] MEDS: metoPROLOL SUCCINATE 25 MG TAB.SR.24H (FP) PO SCH (11:19)
[2018-04-14] MEDS: ASPIRIN 81 MG CHEWABLE TABLETS PO SCH (11:19)
[2018-04-14] MEDS: SPIRONOLACTONE 25 MG TABLET (FP) PO SCH (11:20)
--- NOTE | 2018-04-14 13:10 | PN ---
Physical Exam: SUBJECTIVE: Patient seen and examined at bedside. Resting comfortably in bed. No acute events overnight. OBJECTIVE: Vital Signs Period Temp Pulse Resp BP Sys/Koch Pulse Ox Last 24 Hr 97.8 F-98.6 F 65-88 16-18 130-143/62-79 98 GENERAL: AAOx3, NAD HEAD: NC/AT ENT: MMM NECK: No JVD LUNGS: CTA B/L HEART: Multiple PVC's, irregular ABDOMEN: NT ND No HSM EXTREMITIES: 1+ pitting edema NEUROLOGICAL: CN -12 intact PSYCH: Normal mood, normal affect. SKIN: Warm, dry, normal turgor, no rashes or lesions noted Laboratory Results - last 24 hr 04/13/18 04/13/18 04/14/18 16:28 21:33 05:30 Sodium 138 Potassium 4.3 Chloride 105 Carbon Dioxide 30 Anion Gap 4 L BUN 31 H Creatinine 1.7 H Creat Clearance w eGFR 39.18 POC Glucometer 138 137 Random Glucose 156 H Calcium 9.5 04/14/18 04/14/18 05:43 09:35 Sodium 141 Potassium 4.4 Chloride 106 Carbon Dioxide 27 Anion Gap 8 BUN 29 H Creatinine 1.6 H Creat Clearance w eGFR 42.01 POC Glucometer 173 Random Glucose 162 H Calcium 9.8 Active Medications Generic Name Dose Route Start Last Admin Trade Name Freq PRN Reason Stop Dose Admin Acetaminophen 650 mg 04/13/18 16:23 04/13/18 16:25 Tylenol - PO 650 mg Q6H PRN Administration HEADACHE Aspirin 81 mg 04/11/18 10:00 04/14/18 11:19 Asa - PO 81 mg DAILY YELENA Administration Atorvastatin Calcium 40 mg 04/10/18 22:00 04/13/18 21:34 Lipitor - PO 40 mg HS YELENA Administration Clopidogrel Bisulfate 75 mg 04/11/18 10:00 04/14/18 11:19 Plavix - PO 75 mg DAILY YELENA Administration Heparin Sodium (Porcine) 5,000 unit 04/11/18 22:00 04/14/18 06:25 Heparin - SQ 5,000 unit TID YELENA Administration Insulin Aspart 1 vial 04/11/18 22:00 04/14/18 12:58 Novolog Vial Sliding Scale - SQ 2 units ACHS YELENA Administration Protocol Losartan Potassium 100 mg 04/11/18 10:00 04/13/18 10:04 Cozaar - PO 100 mg DAILY YELENA Administration Metoprolol Succinate 25 mg 04/13/18 10:00 04/14/18 11:19 Toprol Xl - PO 25 mg DAILY YELENA Administration Spironolactone 25 mg 04/12/18 10:00 04/14/18 11:20 Aldactone - PO 25 mg DAILY YELENA Administration ASSESSMENT/PLAN: Patient is a 77 y/o male with a history of CAD s/p 2 stents, HTN, and DM who presents with SOB. # SOB 2/2 Chronic systolic CHF -Dr Rodriguez on board - troponin neg x 3 - EKG showed new inverted twaves in inferior leads, f/u repeat EKG - negative chest pain - stress test in 03/03 showed EF: 38%, left ventricle severe inferior wall hypokinesis - TACHO classification: II - Nuclear stress with no ischemia, dilated LV, inferior scar, EF 36%. -Lasix and Losartan held over weekend due to bump in creatinine Saturday to Saturday 1.3--> 1.8 -Toprol XL 25 mg po daily - Aldactone 25 mg po daily - Per cardiology will switch Losartan to Entresto -MUGA scan today to further assess EF.Possible ICD placement. #CAD - Clopidegrel 75 mg po daily - Aspirin 81 mg -Atorvastatin 40 mg po hs #HTN - Cozaar 100 mg po daily - Outpatient appointment with Dr Chacon scheduled #DM Insulin Sliding Scale - A1C: 6.5 #FEN No Fluids Monitor Electrolytes Diabetic Sodium Diet DVT ppx: Hep SQ TID Dispo: Tele Visit type - Emergency Visit Emergency Visit: Yes ED Registration Date: 04/13/18 Care time: The patient presented to the Emergency Department on the above date and was hospitalized for further evaluation of their emergent condition. - New Patient This patient is new to me today: No - Critical Care Critical Care patient: No - Discharge Referral Referred to [facility] Med P.C.: No
--- NOTE | 2018-04-14 13:15 | PN ---
Teaching Attending Note Name of Resident: Pradip Lyman ATTENDING PHYSICIAN STATEMENT I saw and evaluated the patient. I reviewed the resident's note and discussed the case with the resident. I agree with the resident's findings and plan as documented. SUBJECTIVE:asymptomatic. no recurrence of CP. denies CP, SOB, fever, chills, N/V /C?D OBJECTIVE: Last Vital Signs Temp Pulse Resp BP Pulse Ox 98 F 88 18 142/68 98 04/14/18 10:00 04/14/18 10:00 04/14/18 10:00 04/14/18 10:00 04/13/18 21:00 General NAD ASSESSMENT AND PLAN: 77yo M with PMH DM, CAD s/p stent, CHF and HTN presented to the ER with dyspnea on exertion 1. ACute on chronic Systolic CHF-improved well with lasix IV given on admission. NMST and echo done here showing severely reduced EF. medication were adjusted to be optimize heart failure regimen. ARB will be switched to entresto on discharge. spirolactone started. Echo done showing severely reduced EF. awaiting MUGA scan to further assess LV to determine if he will need AICD. Cardio following 2. KIMANI- possible from lasix IV. now stable. will hold lasix at this time. trend Cr. 3. CAD s/p stent- statin switched to high intensity. cont home regimen 4. DM- hold oral agents. BGM and ISS. may need to hold metformin on discharge pending renal recovery. would also liekly hold sufonylurea on discharge given good control and not requiring any coverage. 5. DVT ppx- Hep sq
[2018-04-14] MEDS: ATORVASTATIN CA 40 MG TABLET (FP) PO SCH (21:25)
[2018-04-14] MEDS ORDERED: INSULIN (NOVOLOG) ASPART 100 UNITS/ML 10ML VIAL ONE (21:31)
[2018-04-15] MEDS: HEPARIN NA (PORCINE) 5,000 UNITS/ML 1ML VIAL SQ SCH (05:49)
[2018-04-15] MEDS: INSULIN SLIDING SCALE (NOVOLOG) 1 VIAL SQ SCH (06:14)
[2018-04-15 07:29] LABS: ANION GAP 8 MMOL/L (8-16); BLOOD UREA NITROGEN 33 mg/dL (7-18); CALCIUM 9.2 mg/dL (8.5-10.1); CHLORIDE 106 mmol/L (98-107); CO2 28 mmol/L (21-32); CREATININE 1.6 mg/dL (0.55-1.3); GLUCOSE,RANDOM 158 mg/dL (74-106); POTASSIUM 4.4 mmol/L (3.5-5.1); SODIUM 142 mmol/L (136-145)
--- NOTE | 2018-04-15 08:48 | PN ---
Progress Note, Physician Chief Complaint: ambulating hallway, no distress TELE: NSR w/ rare VPCs and occasional couplets. - Current Medication List Current Medications: Active Medications Acetaminophen (Tylenol -) 650 mg PO Q6H PRN PRN Reason: HEADACHE Last Admin: 04/13/18 16:25 Dose: 650 mg Aspirin (Asa -) 81 mg PO DAILY [facility] Last Admin: 04/14/18 11:19 Dose: 81 mg Atorvastatin Calcium (Lipitor -) 40 mg PO HS [facility] Last Admin: 04/14/18 21:25 Dose: 40 mg Clopidogrel Bisulfate (Plavix -) 75 mg PO DAILY [facility] Last Admin: 04/14/18 11:19 Dose: 75 mg Furosemide (Lasix -) 20 mg PO DAILY [facility] Heparin Sodium (Porcine) (Heparin -) 5,000 unit SQ TID [facility] Last Admin: 04/15/18 05:49 Dose: 5,000 unit Insulin Aspart (Novolog Vial Sliding Scale -) 1 vial SQ ACHS [facility]; Protocol Last Admin: 04/15/18 06:14 Dose: Not Given Losartan Potassium (Cozaar -) 25 mg PO DAILY [facility] Metoprolol Succinate (Toprol Xl -) 25 mg PO DAILY [facility] Last Admin: 04/14/18 11:19 Dose: 25 mg Spironolactone (Aldactone -) 25 mg PO DAILY [facility] Last Admin: 04/14/18 11:20 Dose: 25 mg - Objective Vital Signs: Vital Signs Temperature 98.1 F 04/15/18 05:25 Pulse Rate 72 04/15/18 05:25 Respiratory Rate 20 04/15/18 05:25 Blood Pressure 131/70 04/15/18 05:25 O2 Sat by Pulse Oximetry (%) 96 04/14/18 21:00 Constitutional: Yes: No Distress, Calm Eyes: Yes: Conjunctiva Clear Neck: Yes: Other (NO JVD) Cardiovascular: Yes: Regular Rate and Rhythm Respiratory: Yes: CTA Bilaterally Gastrointestinal: Yes: Soft Edema: No Neurological: Yes: Alert, Oriented ...Motor Strength: WNL Labs: CBC, BMP 04/13/18 06:18 04/15/18 06:55 INR, PTT INR 1.03 (0.83-1.09) 04/10/18 17:20 - ....Imaging EKG: Image Reviewed Assessment/Plan IMP: CAD s/p PCI Chronic systolic CHF with moderate to severe LV dysfx , EF 35-40% LOMBARDO CKD REC: 1. ICD candidate based on MUGA result, d/w patient. Will arrange as outpatient. 2. Cont Toprol 25mg daily, Aldactone 25mg daily, Losartan 25mg dailly, Lasix 20mg daily. Cont ASA 81mg daily, Lipitor 40mg daily. 3. Will consider Entresto as outpatient. 4. Outpatient Nephrology consult is planned, has appt. w/ Dr. Chaocn. For discharge today on above cardiac meds. Outpatient f/u w/ me at 10:15AM ICD to be arranged as outpatient.
[2018-04-15] MEDS: ASPIRIN 81 MG CHEWABLE TABLETS PO SCH (09:15)
[2018-04-15] MEDS: metoPROLOL SUCCINATE 25 MG TAB.SR.24H (FP) PO SCH (09:15)
[2018-04-15] MEDS: CLOPIDOGREL BISULFATE 75 MG TABLET (FP) PO SCH (09:15)
[2018-04-15] MEDS: SPIRONOLACTONE 25 MG TABLET (FP) PO SCH (09:16)
[2018-04-15] MEDS ORDERED: LOSARTAN POTASSIUM 25 MG TABLET PO SCH (10:00)
[2018-04-15] MEDS ORDERED: FUROSEMIDE 20 MG TABLET (FP) PO SCH (10:00)
[2018-04-15 11:04] VITALS: BP 140/80; PULSE 80; TEMP 98
--- NOTE | 2018-04-15 12:01 | PN ---
Teaching Attending Note Name of Resident: Pradip Lyman ATTENDING PHYSICIAN STATEMENT I saw and evaluated the patient. I reviewed the resident's note and discussed the case with the resident. I agree with the resident's findings and plan as documented. SUBJECTIVE:asymptomatic. eager to go home. denies Cp, SOB, fever, chills, N/V/C/ D OBJECTIVE: Last Vital Signs Temp Pulse Resp BP Pulse Ox 98 F 80 18 140/80 96 04/15/18 10:00 04/15/18 10:00 04/15/18 10:00 04/15/18 10:04/15/18 09:00 General NAD ASSESSMENT AND PLAN: 77yo M with PMH DM, CAD s/p stent, CHF and HTN presented to the ER with dyspnea on exertion 1. ACute on chronic Systolic CHF-improved well with lasix IV given on admission. mUGA is consistent with stress test given. pt would benefit from ICD placement which will be arranged as outpatient. will cont medications he is currently on and plan to switch to entresto in [facility] office. pt has appt this week with cardio. 2. Acute oN CKD- baseline Cr 1.5. close to baseline. will need to monitor this closely with medication adjustment. ramez appt [facility] neprhology outpatient 3. CAD s/p stent- statin switched to high intensity. cont home regimen 4. DM- A1c 6.5 and well controlled. did not require any coverage while hospitalized. caution with continuing home regimen given his renal function and addition of new medication which could worsen his renal function. will d/c on januvia. and have A1c repeated in 3 months. cont monitoring sugars and diabetic diet. explained in detail change and reason to change with family present. 5. DVT ppx- Hep sq 6. spoke to patient in detail about medications and follow up and monitor renal function with family present. verbalized understanding and agreement with plan
--- NOTE | 2018-04-15 12:26 | DS ---
Physical Exam: SUBJECTIVE: Patient seen and examined at bedside. No acute events overnight Denies fever, chills, sob, or chest pain. OBJECTIVE: Vital Signs Period Temp Pulse Resp BP Sys/Koch Pulse Ox Last 24 Hr 97.5 F-98.7 F 72-81 18-20 127-140/65-80 96-96 PHYSICAL EXAM GENERAL: NAD, AAOx3 HEAD: NC/AT EYES: EOMI PERRLA ENT: MMM LUNGS: CTA B/L HEART: RRR No MRG S1 S2 ABDOMEN: BS+ NDNT No HSM EXTREMITIES: No CCE, No venous stasis. PSYCH: Normal mood, normal affect. SKIN: no rashes or lesions noted. LABS Laboratory Results - last 24 hr 04/14/18 04/14/18 04/14/18 12:55 17:12 21:29 Sodium Potassium Chloride Carbon Dioxide Anion Gap BUN Creatinine Creat Clearance w eGFR POC Glucometer 191 108 157 Random Glucose Calcium 04/15/18 04/15/18 05:21 06:55 Sodium 142 Potassium 4.4 Chloride 106 Carbon Dioxide 28 Anion Gap 8 BUN 33 H Creatinine 1.6 H Creat Clearance w eGFR 42.01 POC Glucometer 136 Random Glucose 158 H Calcium 9.2 HOSPITAL COURSE: Date of Admission:04/13/18 Pt presented to [facility] from his PCP's office due to 3 days of shortness of breath and cough. EKG from 04/10 revealed numerous PVC's. Troponin x 2 were both negative. Pt underwent a nuclear stress test which revealed no ischemia, a dilated left ventricle, inferior scar, and an ejection fraction of 36%. Pt subsequently underwent a MUGA scan. MUGA revealed --> " Moderate to severely reduced LV contraction with global hypokinesia and LVEF estimated at 34%. LV cavity is dilated." Pt was discharged home with instructions to follow up with Dr Rodriguez, [employer], and to have an ICD placement as an outpatient. Lasix and losartan were temporarily help during admission due to a rise in creatitnine. Will start on entresto as outpatient per cardiology. Pt's metformin discontinued on this admission due to his Cr of 1.8. Switched pt to Januvia 25 PO daily. Minutes to complete discharge: 35 Discharge Summary Reason For Visit: CHEST PAIN,DYSPNEA Condition: Improved - Instructions Diet, Activity, Other Instructions: You presented to [facility] from your PCP's office due to 3 days of shortness of breath and cough. You were informed to come in to our hospital for new irregular changes on your ECG. EKG from 04/10 revealed numerous PVC's. You underwent a nuclear stress test while at the hospital which revealed no ischemia , a dilated left ventricle, inferior scar, and an ejection fraction of 36%. You subsequently underwent a MUGA scan which is a detailed exam of your left ventricular function. MUGA scan results were discussed with you in detail by your [employer], Dr Rodriguez. Please follow up with Dr Rodriguez after you are discharged from hospital. Your home medications have changed. please refer to medication list for these changes. Your sugars have been very well controlled while you were in the hospital. However they have the ability to affect your kidneys which are not normal. These medications are being stopped and you are being started on a new medication, called Januvia. take this medication daily. You should have your diabetic number repeated in 3 months. (A1c). cont to monitor your sugars regularly and follow a diabetic diet with these changes. -Cont Toprol 25mg daily, Aldactone 25mg daily, Losartan 25mg dailly, Lasix 20mg daily. Cont ASA 81mg daily, Lipitor 40mg daily. -Will consider Entresto as outpatient. - Outpatient Nephrology consult is planned, has appt. w/ Dr. Chacon. You should have your kidney function monitored with these medication changes. For discharge today on above cardiac meds. Please follow up with Dr Rodriguez on at 10:15AM ICD to be arranged as outpatient. Referrals: Cesar Rodriguez MD [Staff Physician] - Perla Perez MD [Primary Care Provider] - Disposition: HOME - Home Medications Comprehensive Discharge Medication List: Ambulatory Orders Clopidogrel Bisulfate [Clopidogrel] 75 mg PO DAILY 03/02/17 Aspirin 1 mg PO DAILY 04/10/18 Atorvastatin Ca [Lipitor] 40 mg PO HS #30 tablet 04/15/18 Furosemide 20 mg PO DAILY #30 tablet 04/15/18 Losartan Potassium 25 mg PO DAILY #30 tablet 04/15/18 Metoprolol Succinate [Toprol Xl] 25 mg PO DAILY #30 tab.er.24h 04/15/18 Sitagliptin Phosphate [Januvia] 25 mg PO DAILY #30 tablet 04/15/18 Spironolactone [Aldactone] 25 mg PO DAILY #30 tablet 04/15/18 This patient is new to me today: No Emergency Visit: Yes ED Registration Date: 04/13/18 Care time: The patient presented to the Emergency Department on the above date and was hospitalized for further evaluation of their emergent condition. Critical Care patient: No - Discharge Referral Referred to [facility] Med P.C.: No
[2018-04-16 18:44] VITALS: BMI 33.6
== END 2018-04-15 12:07 | disposition home or self-care (01) | DRG 291 ==
LOC: JER 17:10 → JERBED 19:59 → J4W 04-11 15:24 → OBSVTOIN 04-13 11:40
PROVIDERS: ADMIT Internal Medicine; ATTEND Internal Medicine
DX: I13.0 Hypertensive heart and chronic kidney disease with heart failure and stage 1 through stage 4 chronic kidney disease, or unspecified chronic kidney disease (principal); I50.23 Acute on chronic systolic (congestive) heart failure; N17.9 Acute kidney failure, unspecified; I42.9 Cardiomyopathy, unspecified; E11.22 Type 2 diabetes mellitus with diabetic chronic kidney disease; N18.9 Chronic kidney disease, unspecified; R07.89 Other chest pain; Z79.84 Long term (current) use of oral hypoglycemic drugs; I25.10 Atherosclerotic heart disease of native coronary artery without angina pectoris; Z95.5 Presence of coronary angioplasty implant and graft; Z87.891 Personal history of nicotine dependence; E66.9 Obesity, unspecified; Z68.33 Body mass index [BMI] 33.0-33.9, adult
CPT/HCPCS: 36415; 71045-TC-FY; 78452-TC; 78472-TC; 80048; 80053; 80061; 82550; 82553; 82947; 82962; 83036; 83721; 83735; 83880; 84100; 84443; 84484; 85025; 85027; 85610; 85730; 93005; 93010; 93017; 93306-TC; 99285-25; A9502; A9538; G0378; J1644; J2785

== ENCOUNTER 2019-04-30 17:59 | Emergency (ER) | payer OTHER ==
[2019-04-30 18:20] VITALS: BP 102/59; PULSE 65; TEMP 98; BMI 33.3
[2019-04-30] MEDS ORDERED: predniSONE 20 MG TABLET (UD) PO ONE (19:40)
[2019-04-30] MEDS ORDERED: predniSONE 20 MG TABLET (UD) ONE (19:42)
[2019-04-30] MEDS ORDERED: predniSONE 10 MG TABLET (UD) ONE (19:42)
--- NOTE | 2019-04-30 19:43 | PDOC ---
Documentation entered by Giselle Sweeney SCRIBE, acting as scribe for Mattie Bean MD. Mattie Bean MD: This documentation has been prepared by the [facility] Sammi, SCRIBE, under my direction and personally reviewed by me in its entirety. I confirm that the documentation accurately reflects all work, treatment, procedures, and medical decision making performed by me. History of Present Illness - General Chief Complaint: Rash Stated Complaint: RASH - History of Present Illness Initial Comments: 04/30/19 19:44 The patient is a 78 year old male who presents to the emergency department for evaluation of a diffuse pruritic rash to his chest, abdomen, and back since this morning. He reports taking a new antibiotic(augmentin) the last 3 days for an ongoing cough. Denies fever, chills, chest pain, SOB, palpitation, dizziness, weakness, N, V, D , abdominal pain, bladder and bowel problems, leg swelling, No sick contacts or travel. Allergies: None Past Medical History: DM HTN, HLD Social history: Lives with family. No tobacco, ETOH or drug use. Meds: as documented in EMR 04/30/19 19:51 04/30/19 19:51 Past History - Past Medical History Allergies/Adverse Reactions: Allergies Allergy/AdvReac Type Severity Reaction Status Date / Time No Known Allergies Allergy Verified 04/30/19 18:01 Home Medications: Ambulatory Orders Clopidogrel Bisulfate [Clopidogrel] 75 mg PO DAILY 03/02/17 Atorvastatin Ca [Lipitor] 40 mg PO HS #30 tablet 04/15/18 Furosemide 20 mg PO DAILY #30 tablet 04/15/18 Metoprolol Succinate [Toprol Xl] 25 mg PO DAILY #30 tab.er.24h 04/15/18 Sitagliptin Phosphate [Januvia] 25 mg PO DAILY #30 tablet 04/15/18 Spironolactone [Aldactone] 25 mg PO DAILY #30 tablet 04/15/18 Amoxicillin/Potassium Clav [Amox-Clav 875-125 mg Tablet] 1 each PO BID 04/30/19 Codeine Phosphate/Guaifenesin [Virtussin AC Liquid] 5 ml PO QID 04/30/19 Prednisone [Prednisone 50 MG TABLETS] 50 mg PO DAILY #4 tablet 04/30/19 Sacubitril/Valsartan [Entresto 24 mg-26 mg Tablet] 1 each PO BID 04/30/19 Anemia: No Asthma: No Cancer: No Cardiac Disorders: Yes CVA: No COPD: No CHF: No Dementia: No Diabetes: Yes GI Disorders: No Disorders: No HTN: Yes Hypercholesterolemia: Yes Liver Disease: No Seizures: No Thyroid Disease: No - Surgical History Abdominal Surgery: No Appendectomy: No Cardiac Surgery: Yes (STENTS X2 DEFIBRILLATOR) Cholecystectomy: No Lung Surgery: No Neurologic Surgery: No Orthopedic Surgery: No - Psycho Social/Smoking Cessation Hx Smoking History: Former smoker Have you smoked in the past 12 months: No If you are a former smoker, when did you quit?: 30 YEARS Information on smoking cessation initiated: No Hx Alcohol Use: Yes (WINE) Drug/Substance Use Hx: No Substance Use Type: None Hx Substance Use Treatment: No Review of Systems - Review of Systems Able to Perform ROS?: Yes Comments:: 04/30/19 19:45 Constitutional: no fevers or chills. HEENT: no headache or dizziness. No congestion. No visual/hearing disturbances. CVS: no cp or syncope. Resp: no sob. No cough. Gastrointestinal: no abdominal pain, nausea or vomiting. Genitourinary: no urinary sx, hematuria. MUSCULOSKELETAL: No joint pain and swelling. No neck or back pain. SKIN: +diffuse rash. no discharge. No wounds. Hematologic: no easy bruising/bleeding. NEUROLOGIC: No headache, dizziness, LOC or altered mental status. No weakness, numbness or tingling. Psych: no anxiety or depression Allergic/Immunologic: no allergies All other systems reviewed and negative, or as documented in HPI. *Physical Exam - Vital Signs Last Vital Signs Temp Pulse Resp BP Pulse Ox 98 F 65 16 102/59 L 97 04/30/19 18:00 04/30/19 18:00 04/30/19 18:00 04/30/19 18:00 04/30/19 18:00 - Physical Exam Comments: 04/30/19 19:45 General: Well appearing, awake and alert, NAD. HEENT: NCAT, PERRL, EOMI, clear conjunctiva, anicteric, moist mucous membranes , clear oropharynx, no oral lesions.. Neck: neck supple, FROM Resp: CTAB, normal and even respirations, no respiratory distress CVS: RRR, no murmurs, 2+ peripheral pulses throughout, no peripheral edema Abdomen: soft, NTND, no rebound or guarding. No CVAT. Back: nontender, normal inspection and ROM MSK: no edema, BLACKMAN x4, ROM intact. No clubbing or cyanosis. normal bulk and tone. Neuro: alert, oriented appropriately; no focal neurologic deficits Skin: +diffuse maculopapular rash, blanching to palp, across chest, abdomen, and back, sparing perineum, palms, and soles and mucosal membranes. warm and well perfused, cap refill <2 sec, normal color 04/30/19 19:51 Medical Decision Making - Medical Decision Making 04/30/19 19:52 Vital Signs Temp Pulse Resp BP Pulse Ox 98 F 65 16 102/59 L 97 04/30/19 18:00 04/30/19 18:00 04/30/19 18:00 04/30/19 18:00 04/30/19 18:00 VS wnl, afebrile, nontoxic appearing. DDx. allergic reaction: hypersensitivity reaction, allergic reaction, anaphylaxis, hives/urticaria. drug rash. dermatitis. serum sickness. vasculitis. medication side effect. -No fevers or systemic findings, clinically well appearing. no mucosal involvement so doubt SJS/TEN. airway patent, doubt anaphylaxis or Dress syndrome. - No evidence of erythema multiforme, SJS/TEN, Lyme, cellulitis, necrotizing fasciitis, no angioedema, meningococcemia, chong mountain spotted fever. - given steroids, cautioned on side effects such as HTN and Hyperglycemia, pt instructed to check pressures and sugars regularly over the next several days. - instructions on avoiding triggers, allergy to Augmentin - prednisone x 4 more days, Discharge: Does not appear at this time to be erythema multiforme, bullous, SJS , TEN; no evidence at this time to suggest RMSF or endocarditis or Lyme disease ; patient looks well, nontoxic and is tolerating oral intake; no neurologic signs or symptoms; no headache or photophobia or neck pain; no ev of sepsis; question viral exanthem; afebrile; appropriate for initial o/p tx; d/w pt importance of f/u and pt agrees/understands; told pt to return to nearest ER immediately for any worsening sx incl but not limited to: fever, spreading rash , pain, sore throat, headache, dizziness, chest pain, trouble breathing, or any ssx concerning to the patient. I did d/w pt the aforementioned ddx as possibilities and pt understands to f/u even if better and to return to ER if un -changed/worse. Pt understands these instructions on d/c and is comfortable with discharge plan. Discharge - Discharge Information Problems reviewed: Yes Clinical Impression/Diagnosis: Allergic reaction caused by a drug, Maculopapular rash, generalized Condition: Stable Disposition: HOME - Admission No - Additional Discharge Information Prescriptions: Prednisone [Prednisone 50 MG TABLETS] 50 mg PO DAILY #4 tablet - Follow up/Referral - Patient Discharge Instructions Patient Printed Discharge Instructions: DI for General Allergic Reactions, DI for Rash Additional Instructions: You have an allergic reaction to Augmentin so stopped taking this medication as this is causing you with the rash. You may take prednisone 40 mg daily for 4 more days as this will help with the rash, make sure to check your blood pressure and your blood sugar as this can cause elevated blood pressure and sugar but due to the extension of your rash the pill form will have improved effect. Follow-up with your primary care doctor and radiology manager, return precautions for fevers, chills, chest pain, shortness of breath, worsening rash , altered mental status, seizure, neurologic changes or signs of infection. - Post Discharge Activity
== END 2019-04-30 19:50 | disposition home or self-care (01) ==
LOC: FER 17:59
DX: E11.9 Type 2 diabetes mellitus without complications (principal); I10 Essential (primary) hypertension; E78.5 Hyperlipidemia, unspecified; Z95.5 Presence of coronary angioplasty implant and graft; Z95.810 Presence of automatic (implantable) cardiac defibrillator; Z87.891 Personal history of nicotine dependence
CPT/HCPCS: 99281-25

== ENCOUNTER 2019-12-09 18:59 | Emergency (ER) | payer OTHER ==
--- NOTE | 2019-12-09 19:09 | PDOC ---
History of Present Illness - General Chief Complaint: Edema Stated Complaint: LEFT FOOT SWELLING REDNESS Time Seen by Provider: 12/09/19 19:07 - History of Present Illness Initial Comments: 12/09/19 19:26 This 79-year-old man with a history of CAD, DM, HLD, HTN, gout presents with left foot infection. Patient states that he noted redness and swelling with pain of the left third toe 4 days ago. No history of trauma or open wound in the area. He was seen by his PMD, Dr. Shah 2 days ago (Saturday, December 06). He was started on Augmentin 875 twice a day which he has been taking as prescribed. 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 He denies fever/chills, nausea/vomiting or other associated symptoms. He states that he has been performing routine fingerstick glucose monitoring without noting hyperglycemia. Today, he noted increase in redness, now extending from the toe into the dorsal midfoot, accompanied by increased pain and generalized swelling of the foot. No history of previous cellulitis or diabetic foot ulcer according to the patient No known allergies Non-smoker/denies daily alcohol or other recreational drug use Medications as noted Past History - Medical History Allergies/Adverse Reactions: Allergies Allergy/AdvReac Type Severity Reaction Status Date / Time No Known Allergies Allergy Verified 12/09/19 19:02 Home Medications: Ambulatory Orders Clopidogrel Bisulfate [Clopidogrel] 75 mg PO DAILY 03/02/17 Atorvastatin Ca [Lipitor] 40 mg PO HS #30 tablet 04/15/18 Furosemide 20 mg PO DAILY #30 tablet 04/15/18 Metoprolol Succinate [Toprol Xl] 25 mg PO DAILY #30 tab.er.24h 04/15/18 Spironolactone [Aldactone] 25 mg PO DAILY #30 tablet 04/15/18 Amoxicillin/Potassium Clav [Amox-Clav 875-125 mg Tablet] 1 each PO BID 04/30/19 Sacubitril/Valsartan [Entresto 24 mg-26 mg Tablet] 1 each PO BID 04/30/19 Anemia: No Asthma: No Cancer: No Cardiac Disorders: Yes CVA: No COPD: No CHF: No Dementia: No Diabetes: Yes GI Disorders: No Disorders: No HTN: Yes Hypercholesterolemia: Yes Liver Disease: No Seizures: No Thyroid Disease: No - Surgical History Abdominal Surgery: No Appendectomy: No Cardiac Surgery: Yes (STENTS X2 DEFIBRILLATOR) Cholecystectomy: No Lung Surgery: No Neurologic Surgery: No Orthopedic Surgery: No - Psycho-Social/Smoking History Smoking History: Former smoker Have you smoked in the past 12 months: No If you are a former smoker, when did you quit?: 30 YEARS Review of Systems - Review of Systems Able to Perform ROS?: Yes Comments:: 12 point review of systems is negative except for what is noted in the history of present illness *Physical Exam - Physical Exam GENERAL: Adult male, alert and oriented x3, no acute distress HEAD: Normal with no signs of trauma. EYES: PERRLA, EOMI, sclera anicteric, conjunctiva clear. ENT: Ears normal, nares patent, oropharynx clear without exudates. Dry mucous membranes. NECK: Normal range of motion, supple without lymphadenopathy, JVD, or masses. LUNGS: Breath sounds equal, clear to auscultation bilaterally. No wheezes, and no crackles. HEART:Regular rate and rhythm, normal S1 and S2 without murmur, rub or gallop. ABDOMEN:.normal bowel sounds No guarding,tenderness or rebound.No masses No distention. EXTREMITIES: Left lower extremityerythematous, edematous moderately tender third toe without drainage or fluctuance; no open wound noted Moderate erythema, mild edema, mild tenderness extends proximally 3.5 cm from base of 3rd toe Remainder the distal half of the left foot is mildly edematous without tenderness or fluctuance Remainder of the extremity exam is normal NEUROLOGICAL: Cranial nerves II through XII grossly intact. Normal speech. No focal neurological deficits. ED Treatment Course - LABORATORY CBC & Chemistry Diagram: 12/09/19 19:30 12/09/19 19:30 Medical Decision Making - Medical Decision Making CBC and chemistry profile sent Vancomycin 1 g IV administered Laboratory evaluation reveals normal CBC with white blood cell count of 6600 (normal differential). Other than slight increase in BUN and creatinine (1.8) as compared to previous values (baseline creatinine 1.6), chemistry profile is essentially normal. Random glucose is 164 12/09/19 21:[address] Shah : Since the Augmentin had just started, will continue with outpatient treatment with Augmentin as previously prescribed. The patient, should however refrain from working and elevate the foot as much as possible. Recommendations discussed with the patient. He should return to the ER immediately if he has increase in pain/redness/swelling in the foot or if he develops fever/chills. Otherwise, he should follow-up with Dr. Shah next week as previously arranged Discharge - Discharge Information Problems reviewed: Yes Clinical Impression/Diagnosis: Cellulitis of left foot Condition: Stable Disposition: HOME - Follow up/Referral Referrals: Yoko Shah MD [Primary Care Provider] - - Patient Discharge Instructions Patient Printed Discharge Instructions: Cellulitis Additional Instructions: Continue Augmentin 875/125 twice a day as previously prescribed Elevate left foot as much as possible for the next several days No work for the remainder of this week Return to ER if you have worsening swelling/redness/pain in foot or if you develop fever/chills Follow-up with Dr. Shah as previously arranged - Post Discharge Activity
[2019-12-09 19:16] VITALS: BP 140/86; PULSE 86; TEMP 98.4; BMI 32.8
[2019-12-09] MEDS ORDERED: VANCOMYCIN 1,000 MG in DEXTROSE 5%-WATER - 250 ML IVPB ONE (19:41)
[2019-12-09 19:45] LABS: BASO % 1.6 % (0-2.0); EOS % 4.9 % (0-4.5); HEMATOCRIT 39.9 % (35.4-49); HEMOGLOBIN 13.8 GM/dl (11.7-16.9); LYMPH % 22.6 % (8-40); MCH 32.7 pg (25.7-33.7); MCHC 34.6 g/dl (32.0-35.9); MEAN CELL VOLUME 94.5 fl (80-96); MEAN PLT VOLUME 8.8 fl (7.5-11.1); NEUT % 61.9 % (42.8-82.8); PLATELET COUNT 197 K/MM3 (134-434); RBC 4.22 M/mm3 (4.00-5.60); RDW 12.2 % (11.9-15.9); WHITE BLOOD COUNT 6.6 K/mm3 (4.0-10.8)
[2019-12-09] MEDS ORDERED: VANCOMYCIN 1,000 MG VIAL (RESTRICTED TO ID ONLY) ONE (20:00)
[2019-12-09 20:02] LABS: ALBUMIN 4.1 g/dl (3.4-5.0); BILIRUBIN,TOTAL 0.5 mg/dl (0.2-1); CALCIUM 8.7 mg/dl (8.5-10); CREATININE 1.8 mg/dl (0.55-1.3); TOT PROT 6.6 g/dl (6.4-8.2)
== END 2019-12-09 21:53 | disposition home or self-care (01) ==
LOC: FER 18:59
PROC: 3E033GC Introduction of Other Therapeutic Substance into Peripheral Vein, Percutaneous Approach (ICD-10-PCS; principal; 2019-12-09)
DX: L03.116 Cellulitis of left lower limb (principal)
CPT/HCPCS: 36415; 73630-TC-LT; 80053; 85025; 99284-25

== ENCOUNTER 2020-01-17 11:38 | Emergency (ER) | payer BC, OTHER ==
[2020-01-17 11:47] VITALS: TEMP 98; BMI 33.6
--- NOTE | 2020-01-17 12:12 | PDOC ---
History of Present Illness - General Chief Complaint: Headache Stated Complaint: HEADACHE Time Seen by Provider: 01/17/20 11:41 History Source: Patient Exam Limitations: No Limitations - History of Present Illness Initial Comments: Brian is an 79 yo M w a hx of CAD s/p PCI with 2 stents, NIDDM, HLD, HTN, and gout who presents to the [facility] from urgent care for a head CT. He has been experiencing 1 week of a headache and high blood pressure. Patient does not currently have a headache in the ER. BP at home patient states measured 200/100 despite taking his HTN medications. The headaches come on gradually and are bitemporal in nature. Characterizes headaches as a pounding heavy sensation. States symptoms are moderate, rated 6/10, and intermittent in persistence. Denies falling down, hitting head, or experiencing other trauma. Headaches come and go throughout the day no relation to sleep or position. Headaches do not come on suddenly. Headaches are not the worst headaches of his life. Denies associated phonophobia or photophobia and denies neck pain. - Takes aspirin and clopidogrel daily Denies back pain, nausea, vomiting, chest pain, flank pain, blurry vision, dysuria, frequency, urgency, fevers, chills, or infections. PCP: Yoko Shah Cards: Dr. Rodriguez - Saw him 3 weeks ago and was told all is good with the heart Allergies: NKA, NKDA Social history: Lives with family. No tobacco, ETOH or drug use. PSH: Stents Past History - Medical History Allergies/Adverse Reactions: Allergies Allergy/AdvReac Type Severity Reaction Status Date / Time No Known Allergies Allergy Verified 01/17/20 11:40 Home Medications: Ambulatory Orders Clopidogrel Bisulfate [Clopidogrel] 75 mg PO DAILY 03/02/17 Atorvastatin Ca [Lipitor] 40 mg PO HS #30 tablet 04/15/18 Furosemide 20 mg PO DAILY #30 tablet 04/15/18 Metoprolol Succinate [Toprol Xl] 25 mg PO DAILY #30 tab.er.24h 04/15/18 Spironolactone [Aldactone] 25 mg PO DAILY #30 tablet 04/15/18 Amoxicillin/Potassium Clav [Amox-Clav 875-125 mg Tablet] 1 each PO BID 04/30/19 Sacubitril/Valsartan [Entresto 24 mg-26 mg Tablet] 1 each PO BID 04/30/19 Anemia: No Asthma: No Cancer: No Cardiac Disorders: Yes (DEFIBRILLATOR) CVA: No COPD: No CHF: No Dementia: No Diabetes: Yes GI Disorders: No Disorders: No HTN: Yes Hypercholesterolemia: Yes Liver Disease: No Seizures: No Thyroid Disease: No - Surgical History Abdominal Surgery: No Appendectomy: No Cardiac Surgery: Yes (STENTS X2 DEFIBRILLATOR) Cholecystectomy: No Lung Surgery: No Neurologic Surgery: No Orthopedic Surgery: No - Psycho-Social/Smoking History Smoking History: Former smoker Have you smoked in the past 12 months: No If you are a former smoker, when did you quit?: 30 YEARS Information on smoking cessation initiated: No - Substance Abuse Hx (Audit-C & DAST Scrn) How often the patient has a drink containing alcohol: 2-3 times / week Score: In Men: 4 or > Positive; In Women: 3 or > Positive: 3 Screen Result (Pos requires Nsg. Audit-10AR): Negative In the last yr the pt used illegal drug/Rx for NonMed reason: No Score: Yes response is considered Positive: 0 Screen Result (Positive result requires Nsg. DAST-10): Negative Review of Systems - Review of Systems Able to Perform ROS?: Yes Comments:: CONSTITUTIONAL: Absent: fever, no chills, no fatigue EYES: Absent: visual changes ENT: Absent: ear pain, no sore throat CARDIOVASCULAR: Absent: chest pain, no palpitations RESPIRATORY: Absent: cough, no SOB GI: Absent: abdominal pain, no nausea, no vomiting, no constipation, no diarrhea GENITOURINARY: Absent: dysuria, no frequency, no hematuria MUSKULOSKELETAL: Absent: back pain, no arthralgia, no myalgia SKIN: Absent: rash NEUROLOGIC: Present: Headache Absent: focal weakness or paresthesias, dizziness, unsteady gait, seizure, mental status changes, bladder or bowel incontinence PSYCHIATRIC: Absent: anxiety, depression, suicidal or homicidal ideation, hallucinations. *Physical Exam - Vital Signs Last Vital Signs Temp Pulse Resp BP Pulse Ox 98 F 76 18 177/92 H 99 01/17/20 11:38 01/17/20 11:38 01/17/20 11:38 01/17/20 11:38 01/17/20 11:38 - Physical Exam GENERAL: Well-appearing, well-nourished. No apparent distress. HEENT: Normocephalic, atraumatic. PERRL, EOM intact. CARDIOVASCULAR: Normal S1, S2. Regular rate and rhythm. PULMONARY: No evidence of respiratory distress. Lungs clear to auscultation bilaterally. No wheezing, rales or rhonchi. ABDOMEN: Soft, non-distended, non-tender. EXTREMITIES: Normal ROM in all four extremities. No gross deformities. SKIN: Warm, dry. No rash Alert, awake, appropriate. Cranial nerves 2-12 intact. No deficits to light touch and temperature in face, upper extremities and lower extremities. No motor deficits in the in face, upper extremities and lower extremities. No pronator drift. Normoreflexic in the upper and lower extremities. Normal speech. Toes are down-going bilaterally. Gait is normal without ataxia. No dysmetria. No dysdiadochokinesis. No skew deviation. No abnormal nystagmus. ED Treatment Course - LABORATORY CBC & Chemistry Diagram: 01/17/20 12:18 01/17/20 12:12 - RADIOLOGY Radiology Studies Ordered: Category Date Time Status HEAD CT WITHOUT CONTRAST [CT] Stat CT Scan 01/17/20 12:07 Ordered CHEST PA & LAT [RAD] Stat Radiology 01/17/20 12:07 Ordered Medical Decision Making - Medical Decision Making Brian is an 79 yo M w a hx of CAD s/p PCI with 2 stents, NIDDM, HLD, HTN, and gout who presents to the [facility] from urgent care for a head CT. He has been experiencing 1 week of a headache and high blood pressure. Patient does not currently have a headache in the ER. BP at home patient states measured 200/100 despite taking his HTN medications. The headaches come on gradually and are bitemporal in nature. Characterizes headaches as a pounding heavy sensation. [place] symptoms are moderate, rated 6/10, and intermittent in persistence. Denies falling down, hitting head, or experiencing other trauma. Headaches come and go throughout the day no relation to sleep or position. Headaches do not come on suddenly. Headaches are not the worst headaches of his life. Denies associated phonophobia or photophobia and denies neck pain. - Takes aspirin and clopidogrel daily Denies back pain, nausea, vomiting, chest pain, flank pain, blurry vision, dysuria, frequency, urgency, fevers, chills, or infections. Vital Signs Temp Pulse Resp BP Pulse Ox 98 F 76 18 177/92 H 99 01/17/20 11:38 01/17/20 11:38 01/17/20 11:38 01/17/20 11:38 01/17/20 11:38 DDx IBNLT: Subdural, SAH, other brain bleed, ACS, hypertensive encephelopathy vs emergency/urgency, electrolyte/metabolic disturbance, end organ damage including renal vs cardiac injury Plan: Labs, EKG, CXR, head CT, re-assess EKG: NS rate of 71, pr 192, borderline narrow complexes, qrs 118, LAD, no hypertrophy, nonspecific intraventricular conduction delay, Non-specific Twave abnormality w T wave flattening/inversion in leads II, III, aVF, V6, no ST elevations or depressions, no Q waves, Qtc 432 - no Significant changes since prior EKG on 04/11/18 Labs: CKD, unchanged from prior Urine: 2+ proteinuria CXR: Mediastinum not widened Head CT: No acute pathology or bleed Re-assessment: Patient endorses relief after migraine cocktail and no longer has a headache in the ER. Requesting to be discharged home. The patient appears clinically sober, has no evidence of clinical intoxication, is A&O x4, has no sustained nystagmus, and appears to be capable and have capacity to make reasonable decisions. The patient states they are currently in the emergency department, knows who the president is, states the correct time, correct day, and correct month. The patient is ambulatory in ER and has walked around the nursing station multiple times with a straight and steady gait, and is not ataxic. Tolerating PO well, ate a sandwich and drank juice. Denies having any SI or HI. Patient states will not be driving home. I discussed the physical exam findings, ancillary test results and final diagnoses with the patient. I answered all of the patient's questions. The patient was satisfied with the care received and felt comfortable with the discharge plan and treatment plan. The patient will call their primary care physician within 24 hours to arrange follow-up and will return to the Emergency Department with any new, persistent or worsening symptoms. Disposition: Home with PCP fu in the next 24 to 48 hours - Patient made aware of kidney function test elevations and protein in urine - Patient said he can see Dr. Shah tomorrow and discuss these issues Please note, this clinical encounter is taking place during a federal and state health care emergency attributable to the novel Sadler Virus pandemic. The [employer] of the Department of Health and Human Services has declared, pursuant to the Public Health Service Act 319F-3 (42 U.S.C. 247d-6d), that a covered persons activities related to medical countermeasures against COVID-19 will be immune from liability under Federal and State law. Discharge - Discharge Information Problems reviewed: Yes Clinical Impression/Diagnosis: HTN (hypertension) Qualifiers: Hypertension type: unspecified Qualified Code(s): I10 - Essential (primary) hypertension Headache Qualifiers: Headache type: unspecified Headache chronicity pattern: unspecified pattern Intractability: not intractable Qualified Code(s): R51 - Headache Condition: Stable Disposition: HOME - Admission No - Follow up/Referral Referrals: Yoko Shah MD [Staff Physician] - Cesar Rodriguez MD [Staff Physician] - - Patient Discharge Instructions Patient Printed Discharge Instructions: Essential Hypertension, DI for Headache Additional Instructions: You came into the ER with high blood pressure and a headache. We did a head cat scan which showed no bleed. Your urine showed that you have proteins in it and your blood work showed that you have kidney problems which are chronic but this must be followed up and spoken about with your primary care doctor. You must return to the Emergency Department with any new complaints, if your symptoms persist and do not improve or if you develop any other new or worsening concerns. As discussed, please call to follow up with your Primary Care physician in 1-2 days to discuss what happened to you in the emergency room, and make sure you are being looked after and taken care of. Your emergency room visit is not com plete without this follow up appointment. Please read the attached handouts for further information about your ER visit and what you should do moving forward. Thank you for coming to the [facility]. We hope you feel better soon! Print Language: GREEK - Post Discharge Activity
[2020-01-17] MEDS ORDERED: ACETAMINOPHEN 500 MG TABLET (FP) PO ONE (12:28)
[2020-01-17] MEDS ORDERED: METOCLOPRAMIDE HCL INJECTION 10 MG/2 ML VIAL IVPUSH ONE (12:28)
[2020-01-17] MEDS ORDERED: ACETAMINOPHEN 500 MG TABLET (FP) ONE (12:32)
[2020-01-17] MEDS ORDERED: METOCLOPRAMIDE HCL INJECTION 10 MG/2 ML VIAL ONE (12:32)
[2020-01-17 12:51] LABS: EOS % 5.5 % (0-4.5); HEMATOCRIT 43.9 % (35.4-49); HEMOGLOBIN 15.1 GM/dl (11.7-16.9); LYMPH % 21.4 % (8-40); MCH 32.1 pg (25.7-33.7); MCHC 34.3 g/dl (32.0-35.9); MEAN CELL VOLUME 93.5 fl (80-96); MEAN PLT VOLUME 9.6 fl (7.5-11.1); MONO % 8.6 % (3.8-10.2); NEUT % 63.5 % (42.8-82.8); PLATELET COUNT 209 K/MM3 (134-434); RDW 12.6 % (11.9-15.9); WHITE BLOOD COUNT 6.5 K/mm3 (4.0-10.8)
[2020-01-17 13:00] LABS: ALBUMIN 4.4 g/dl (3.4-5.0); BILIRUBIN,TOTAL 0.8 mg/dl (0.2-1); CALCIUM 9.5 mg/dl (8.5-10); CREATININE 1.5 mg/dl (0.55-1.3); TOT PROT 6.7 g/dl (6.4-8.2)
--- NOTE | 2020-01-17 13:06 | PDOC ---
Attending Attestation - Resident Resident Name: Johnnie Butt - ED Attending Attestation I have performed the following: I have examined & evaluated the patient, The case was reviewed & discussed with the resident, I agree w/resident's findings & plan, Exceptions are as noted - HPI HPI: 01/17/20 13:39 79yo male with hx of CAD s/p PCI with 2 stents, NIDDM, HLD, HTN, and gout presents ambulatory from urgent care for eval of a frontal elizabeth that has been present for 2 days. Pt denies dizziness. Denies weakness, paresthesias, tingling, unilateral findings. Denies blurred vision or vision changes. Denies sore throat, rhinorrhea. Denies cough, cp/sob, palpitations. Denies abd pain. No n/v/d. No dysuria. No neck pain. No f/c. No other complaints. Pt was seen at urgent care and sent for further eval of the elizabeth. Pt currently denies a elizabeth. State s his bp has been elevated to 200systolic over the last few days. Pt bp upon arrival is 169/75. Pt denies all complaints at this time. - Physicial Exam PE: 01/17/20 13:42 Gen: AAOx3, nad heent: EOMI, PERRL, mmm neck: supple heart: +s1s2 reg lungs: cta b/l abdL: soft, nt/nd +bs ext: no c/c/e, FROM of all extremities, ambulatory with a steady gait neuro: cn ii-xii grossly intact, muscle strength 5/5 UE and LE, sensation intact, no focal neuro deficits - Medical Decision Making 01/17/20 13:43 a/p: 79yo male with elevated bp for 2 days and frontal elizabeth -head ct ordered -labs ordered -ekg unchanged from prior -PMD Dr. Yoko basilio -cards: Dr. Rodriguez -will medicate with tylenol and reglan, will monitor and reassess 01/17/20 13:[address] neg cxr shows icd in place without pna, ptx, effusions labs reviewed ckd, but stable cr stable hgb 01/17/20 13:46 trop neg pending ua pt has been ambulatory in the ER with a steady gait 01/17/20 14:38 pt feeling much better bp 135/72 discussed labs and imaging pt stable for dc to home and follow up with his PMD Heart Score/ECG Review - ECG Intrepretation Comment:: 01/17/20 13:44 sinus at 71, L axis, t wave inversions inferior leads, lafb, q waves v1-2 which are age indeterminate, abnl ekg, but unchanged from prior ekg Discharge - Discharge Information Problems reviewed: Yes Clinical Impression/Diagnosis: HTN (hypertension), Headache Condition: Stable Disposition: HOME - Admission No - Follow up/Referral - Patient Discharge Instructions - Post Discharge Activity
[2020-01-17 14:10] LABS: EPITHELIAL CELLS FEW /hpf
[2020-01-17 15:18] VITALS: BP 135/72; PULSE 69
--- NOTE | 2020-01-18 10:24 | EKG ---
Test Reason : Blood Pressure : / mmHG Vent. Rate : 071 BPM Atrial Rate : 071 BPM P-R Int : 192 ms QRS Dur : 118 ms QT Int : 398 ms P-R-T Axes : 024 -61 -22 degrees QTc Int : 432 ms NORMAL SINUS RHYTHM LEFT AXIS DEVIATION /LAFB NON-SPECIFIC INTRA-VENTRICULAR CONDUCTION DELAY NONSPECIFIC T WAVE ABNORMALITY ABNORMAL ECG WHEN COMPARED WITH ECG OF 11-APR-2018 04:56, PREMATURE VENTRICULAR COMPLEXES ARE NO LONGER PRESENT CRITERIA FOR SEPTAL INFARCT ARE NO LONGER PRESENT Confirmed by Corey Bowers ([id number]) on 01/18/2020 10:24:26 AM Referred By: LORI CRESPO Confirmed By:Corey Bowers
== END 2020-01-17 14:55 | disposition home or self-care (01) ==
LOC: FER 11:38
PROC: 3E033GC Introduction of Other Therapeutic Substance into Peripheral Vein, Percutaneous Approach (ICD-10-PCS; principal; 2020-01-17)
DX: R51 Headache (principal); I10 Essential (primary) hypertension
CPT/HCPCS: 36415; 70450-TC; 71046-TC-FY; 80053; 81003; 81015; 84484; 85025; 93005; 99285-25

== ENCOUNTER 2020-12-27 09:38 | Emergency (ER) | payer OTHER, MEDICARE ==
[2020-12-27] MEDS ORDERED: ACETAMINOPHEN 325 MG TABLET (FP) PO ONE (10:02)
[2020-12-27 10:05] VITALS: TEMP 98.3; BMI 32.1
[2020-12-27] MEDS ORDERED: ACETAMINOPHEN 325 MG TABLET (FP) ONE (10:40)
[2020-12-27 11:28] LABS: ALBUMIN 3.8 g/dl (3.4-5.0); ALK PHOS 92 U/L (45-117); ANION GAP 12 MMOL/L (8-16); CALCIUM 9.4 mg/dl (8.5-10); CHLORIDE 104 mmol/L (98-107); CO2 20 mmol/L (21-32); CREATININE 1.6 mg/dl (0.55-1.3); GLUCOSE,RANDOM 283 mg/dl (74-106); SGOT/AST 20 U/L (15-37); SGPT/ALT 10 U/L (13-61); SODIUM 136 mmol/L (136-145); TOT PROT 6.4 g/dl (6.4-8.2)
[2020-12-27 11:57] LABS: WHITE BLOOD COUNT 7.2 K/mm3 (4.0-10.8)
[2020-12-27 12:00] LABS: BASO % 0.5 % (0-2.0); EOS % 2.7 % (0-4.5); HEMATOCRIT 40.6 % (35.4-49); HEMOGLOBIN 13.6 GM/dl (11.7-16.9); MCH 33.2 pg (25.7-33.7); MCHC 33.6 g/dl (32.0-35.9); MEAN CELL VOLUME 98.7 fl (80-96); MEAN PLT VOLUME 10.3 fl (7.5-11.1); MONO % 7.9 % (3.8-10.2); NEUT % 68.9 % (42.8-82.8); PLATELET COUNT 221 10^3/uL (134-434); RBC 4.11 M/mm3 (4.00-5.60); RDW 12.3 % (11.9-15.9)
[2020-12-27] MEDS ORDERED: AZITHROMYCIN IVPB 500 MG in DEXTROSE 5%-WATER - 250 ML IVPB ONE (12:09)
[2020-12-27] MEDS ORDERED: AZITHROMYCIN 500 MG VIAL IVPB ONE (12:15)
[2020-12-27] MEDS ORDERED: CEFTRIAXONE 1,000 MG in DEXTROSE 5%-WATER - 50 ML IVPB ONE (12:23)
[2020-12-27] MEDS ORDERED: cefTRIAXone SODIUM 1 GM VIAL ONE (12:28)
[2020-12-27 12:50] LABS: N-TERMINAL BNP 4662.9 pg/ml (5-450)
[2020-12-27 14:17] VITALS: BP 107/58; PULSE 74
== END 2020-12-27 14:15 | disposition home or self-care (01) ==
LOC: FER 09:38
DX: R06.02 Shortness of breath (principal); J18.9 Pneumonia, unspecified organism; I50.9 Heart failure, unspecified
CPT/HCPCS: 36415; 71046-TC-FY; 80053; 82550; 83880; 84484; 85025; 93005; 99285-25; C9803; U0003; U0005

== ENCOUNTER 2021-04-17 09:10 | Emergency (ER) | payer OTHER, MEDICARE ==
[2021-04-17] MEDS ORDERED: DIPHTH,PERTUSS(ACELL),TET 0.5 ML DISP.SYRIN IM ONE ×2 (09:27→09:51)
[2021-04-17 09:34] VITALS: BP 149/76; PULSE 92; TEMP 97.9; BMI 32.8
[2021-04-17] MEDS ORDERED: LIDO 2%/EPI 1:200000 PRESRVFRE (20 ML SDVIAL) ONE (10:25)
== END 2021-04-17 11:10 | disposition home or self-care (01) ==
LOC: FER 09:10
PROC: 0HQ0XZZ Repair Scalp Skin, External Approach (ICD-10-PCS; principal; 2021-04-17)
PROC: 3E0234Z Introduction of Serum, Toxoid and Vaccine into Muscle, Percutaneous Approach (ICD-10-PCS; 2021-04-17)
DX: S01.02XA Laceration with foreign body of scalp, initial encounter (principal); S09.90XA Unspecified injury of head, initial encounter; W10.8XXA Fall (on) (from) other stairs and steps, initial encounter
CPT/HCPCS: 12004; 70450-TC; 72125-TC; 90471; 90715; 93005; 99285-25

== ENCOUNTER 2021-04-25 10:07 | Emergency (ER) | payer OTHER, MEDICARE ==
[2021-04-25 10:12] VITALS: BP 135/75; PULSE 81; TEMP 98.2; BMI 26.6
[2021-04-25] MEDS ORDERED: LIDOCAINE 5% TOPICAL PATCH TP ONE (10:34)
[2021-04-25] MEDS ORDERED: LIDOCAINE 5% TOPICAL PATCH ONE (10:35)
[2021-04-25] MEDS ORDERED: LIDOCAINE PATCH REMOVAL MC SCH (22:00)
== END 2021-04-25 11:07 | disposition home or self-care (01) ==
LOC: FER 10:07
DX: M54.2 Cervicalgia (principal); S16.1XXA Strain of muscle, fascia and tendon at neck level, initial encounter; Z48.02 Encounter for removal of sutures; W19.XXXA Unspecified fall, initial encounter; Y92.9 Unspecified place or not applicable
CPT/HCPCS: 99283-25

== ENCOUNTER 2021-04-30 10:29 | Emergency (ER) | payer OTHER, MEDICARE ==
[2021-04-30 11:00] VITALS: BP 150/77; PULSE 80; TEMP 98; BMI 32.8
== END 2021-04-30 11:11 | disposition home or self-care (01) ==
LOC: FER 10:29
DX: L76.32 Postprocedural hematoma of skin and subcutaneous tissue following other procedure (principal)
CPT/HCPCS: 99282-25

== ENCOUNTER 2021-05-16 20:28 | Inpatient (IN) | payer OTHER, MEDICARE ==
[2021-05-16 20:39] VITALS: BMI 32.1
[2021-05-16 21:08] LABS: BASO % 0.6 % (0-2.0); EOS % 1.1 % (0-4.5); HEMATOCRIT 35.8 % (35.4-49); HEMOGLOBIN 12.1 GM/dl (11.7-16.9); LYMPH % 9.3 % (8-40); MCH 33.5 pg (25.7-33.7); MCHC 33.7 g/dl (32.0-35.9); MEAN CELL VOLUME 99.6 fl (80-96); MEAN PLT VOLUME 9.6 fl (7.5-11.1); MONO % 5.6 % (3.8-10.2); NEUT % 83.4 % (42.8-82.8); PLATELET COUNT 189 10^3/uL (134-434); RDW 12.3 % (11.9-15.9); WHITE BLOOD COUNT 8.9 K/mm3 (4.0-10.8)
[2021-05-16 21:20] LABS: ALBUMIN 3.7 g/dl (3.4-5.0); BILIRUBIN,TOTAL 0.8 mg/dl (0.2-1); CALCIUM 9.6 mg/dl (8.5-10); CREATININE 1.7 mg/dl (0.55-1.3); TOT PROT 6.5 g/dl (6.4-8.2)
[2021-05-16] MEDS ORDERED: ALBUTEROL SO4 2.5/IPRATROPIUM 0.5 INH SOL 3 ML VIAL.NEB. NEB ONE ×2 (21:41→21:59)
[2021-05-16] MEDS ORDERED: FUROSEMIDE 40 MG/4 ML INJECTABLE VIAL IVPUSH ONE (23:18)
[2021-05-16] MEDS ORDERED: FUROSEMIDE 40 MG/4 ML INJECTABLE VIAL ONE (23:29)
[2021-05-17] MEDS: ALBUTEROL SO4 0.083% IH SOL 2.5 MG/3 ML VIAL.NEB. NEB PRN ×2 (08:28→13:25)
[2021-05-17] MEDS ORDERED: MAGNESIUM SULF 50% (8.12 MEQ/2 ML-1 GM VIAL) IVPB ONE (09:08)
[2021-05-17] MEDS ORDERED: MAGNESIUM 1GM/D5W - 1 GM/100 ML IVPB IVPB ONE (09:30)
[2021-05-17] MEDS ORDERED: SODIUM CHLORIDE 50 ML IVPB ONE (10:19)
[2021-05-17] MEDS ORDERED: cefTRIAXone SODIUM 1 GM VIAL ONE (10:19)
[2021-05-17] MEDS: metoPROLOL SUCCINATE 25 MG TAB.SR.24H (FP) PO SCH (10:24)
[2021-05-17] MEDS: SACUBITRIL/VALSARTAN 24 MG-26 MG TABLET PO SCH ×2 (10:24→21:41)
[2021-05-17] MEDS: ASPIRIN COATED 81 MG TABLET.EC PO SCH (10:24)
[2021-05-17] MEDS: AZITHROMYCIN IVPB 500 MG/250 ML BAG IVPB SCH (10:24)
[2021-05-17] MEDS: CLOPIDOGREL BISULFATE 75 MG TABLET (FP) PO SCH (10:24)
[2021-05-17] MEDS: CEFTRIAXONE 1 GM in SODIUM CHLORIDE 50 ML IVPB SCH (10:25)
[2021-05-17 11:42] LABS: CALCIUM 9.2 mg/dL (8.5-10.1)
[2021-05-17 11:43] LABS: ALBUMIN 3.3 g/dl (3.4-5.0); BLOOD UREA NITROGEN 28.7 mg/dL (7-18)
[2021-05-17 11:46] LABS: CREATININE 1.7 mg/dL (0.55-1.3)
[2021-05-17 11:47] LABS: BILIRUBIN,TOTAL 0.6 mg/dL (0.2-1); TOT PROT 6.4 g/dl (6.4-8.2)
[2021-05-17] MEDS: INSULIN SLIDING SCALE (NOVOLOG) 1 VIAL SQ SCH ×3 (12:00→21:44)
[2021-05-17] MEDS: BUDESONIDE/FORMETEROL FUMARATE 160/4.5 mcg INHALER IH SCH ×2 (14:00→21:41)
[2021-05-17] MEDS: FUROSEMIDE 40 MG/4 ML INJECTABLE VIAL IVPUSH SCH (14:22)
[2021-05-17 15:11] LABS: MAGNESIUM 1.9 mg/dL (1.8-2.4)
[2021-05-17] MEDS ORDERED: PT OWN MED DRAWER 7, Y5N ONE (17:16)
[2021-05-17] MEDS: GEMFIBROZIL 600 MG TABLET (FP) PO SCH (19:30)
[2021-05-17] MEDS: ATORVASTATIN CA 80 MG TABLET (FP) PO SCH (21:41)
[2021-05-18] MEDS: GEMFIBROZIL 600 MG TABLET (FP) PO SCH ×2 (06:17→15:57)
[2021-05-18] MEDS: INSULIN SLIDING SCALE (NOVOLOG) 1 VIAL SQ SCH ×4 (06:21→21:05)
[2021-05-18] MEDS: ALBUTEROL SO4 0.083% IH SOL 2.5 MG/3 ML VIAL.NEB. NEB PRN ×2 (06:32→14:27)
[2021-05-18] MEDS ORDERED: methylPREDNISolone NA SUCC 125 MG/2 ML VIAL IVPUSH ONE (08:30)
[2021-05-18] MEDS ORDERED: cefTRIAXone SODIUM 1 GM VIAL ONE (09:18)
[2021-05-18] MEDS ORDERED: SODIUM CHLORIDE 50 ML IVPB ONE (09:18)
[2021-05-18] MEDS: FUROSEMIDE 40 MG/4 ML INJECTABLE VIAL IVPUSH SCH (09:48)
[2021-05-18] MEDS: SACUBITRIL/VALSARTAN 24 MG-26 MG TABLET PO SCH ×2 (09:51→21:03)
[2021-05-18] MEDS: ASPIRIN COATED 81 MG TABLET.EC PO SCH (09:51)
[2021-05-18] MEDS: TAMSULOSIN HCL 0.4 MG CAP PO SCH (09:51)
[2021-05-18] MEDS: metoPROLOL SUCCINATE 25 MG TAB.SR.24H (FP) PO SCH (09:52)
[2021-05-18] MEDS: AZITHROMYCIN IVPB 500 MG/250 ML BAG IVPB SCH (09:52)
[2021-05-18] MEDS: CLOPIDOGREL BISULFATE 75 MG TABLET (FP) PO SCH (09:52)
[2021-05-18] MEDS: CEFTRIAXONE 1 GM in SODIUM CHLORIDE 50 ML IVPB SCH (09:53)
[2021-05-18] MEDS: BUDESONIDE/FORMETEROL FUMARATE 160/4.5 mcg INHALER IH SCH ×2 (09:53→21:02)
[2021-05-18 10:40] LABS: ALBUMIN 3.4 g/dl (3.4-5.0); BILIRUBIN,TOTAL 0.7 mg/dl (0.2-1); CALCIUM 9.5 mg/dl (8.5-10); CREATININE 1.9 mg/dl (0.55-1.3); TOT PROT 6.2 g/dl (6.4-8.2)
[2021-05-18 11:44] LABS: BASO % 0.5 % (0-2.0); EOS % 1.8 % (0-4.5); HEMATOCRIT 36.7 % (35.4-49); HEMOGLOBIN 12.4 GM/dL (11.7-16.9); LYMPH % 14.8 % (8-40); MCH 33.2 pg (25.7-33.7); MCHC 33.8 g/dl (32.0-35.9); MEAN CELL VOLUME 98.2 fl (80-96); MEAN PLT VOLUME 9.6 fl (7.5-11.1); MONO % 10.4 % (3.8-10.2); NEUT % 72.5 % (42.8-82.8); PLATELET COUNT 204 10^3/uL (134-434); RBC 3.73 M/mm3 (4.00-5.60); RDW 13.1 % (11.9-15.9); WHITE BLOOD COUNT 6.8 K/mm3 (4.0-10.0)
[2021-05-18] MEDS ORDERED: MAGNESIUM HYDROX 2400MG/30ML ORAL SUSPENSION 30 ML CUP PO ONE (16:23)
[2021-05-18] MEDS: guaiFENesin/CODEINE 10 ML UNIT-DOSE CUPS PO PRN (18:43)
[2021-05-18] MEDS: methylPREDNISolone NA SUCC 40 MG/1 ML VIAL IVPUSH SCH (18:45)
[2021-05-18] MEDS: ATORVASTATIN CA 80 MG TABLET (FP) PO SCH (21:02)
[2021-05-19] MEDS: methylPREDNISolone NA SUCC 40 MG/1 ML VIAL IVPUSH SCH ×3 (02:00→17:25)
[2021-05-19] MEDS: GEMFIBROZIL 600 MG TABLET (FP) PO SCH ×2 (06:28→16:23)
[2021-05-19] MEDS: INSULIN SLIDING SCALE (NOVOLOG) 1 VIAL SQ SCH ×4 (06:28→21:15)
[2021-05-19] MEDS: TAMSULOSIN HCL 0.4 MG CAP PO SCH (08:11)
[2021-05-19 08:40] LABS: ALBUMIN 3.4 g/dl (3.4-5.0); BILIRUBIN,TOTAL 0.8 mg/dl (0.2-1); CALCIUM 9.4 mg/dl (8.5-10); CREATININE 1.8 mg/dl (0.55-1.3); TOT PROT 6.3 g/dl (6.4-8.2)
[2021-05-19] MEDS ORDERED: SODIUM CHLORIDE 50 ML IVPB ONE (09:17)
[2021-05-19] MEDS ORDERED: cefTRIAXone SODIUM 1 GM VIAL ONE (09:17)
[2021-05-19 09:31] LABS: BASO % 0.4 % (0-2.0); HEMATOCRIT 35.8 % (35.4-49); HEMOGLOBIN 12.3 GM/dL (11.7-16.9); LYMPH % 7.7 % (8-40); MCH 33.6 pg (25.7-33.7); MCHC 34.4 g/dl (32.0-35.9); MEAN CELL VOLUME 97.6 fl (80-96); MEAN PLT VOLUME 9.7 fl (7.5-11.1); MONO % 6.8 % (3.8-10.2); NEUT % 85.1 % (42.8-82.8); PLATELET COUNT 231 10^3/uL (134-434); RBC 3.66 M/mm3 (4.00-5.60); RDW 12.9 % (11.9-15.9); WHITE BLOOD COUNT 6.8 K/mm3 (4.0-10.0)
[2021-05-19] MEDS: FUROSEMIDE 40 MG/4 ML INJECTABLE VIAL IVPUSH SCH (09:36)
[2021-05-19] MEDS: CEFTRIAXONE 1 GM in SODIUM CHLORIDE 50 ML IVPB SCH (09:37)
[2021-05-19] MEDS: CLOPIDOGREL BISULFATE 75 MG TABLET (FP) PO SCH (09:38)
[2021-05-19] MEDS: SACUBITRIL/VALSARTAN 24 MG-26 MG TABLET PO SCH ×2 (09:38→21:10)
[2021-05-19] MEDS: ASPIRIN COATED 81 MG TABLET.EC PO SCH (09:38)
[2021-05-19] MEDS: metoPROLOL SUCCINATE 25 MG TAB.SR.24H (FP) PO SCH (09:38)
[2021-05-19] MEDS: BUDESONIDE/FORMETEROL FUMARATE 160/4.5 mcg INHALER IH SCH ×2 (09:38→21:11)
[2021-05-19] MEDS: AZITHROMYCIN IVPB 500 MG/250 ML BAG IVPB SCH (09:39)
[2021-05-19] MEDS: guaiFENesin/CODEINE 10 ML UNIT-DOSE CUPS PO PRN ×2 (10:42→21:16)
[2021-05-19] MEDS: ALBUTEROL SO4 0.083% IH SOL 2.5 MG/3 ML VIAL.NEB. NEB PRN (20:25)
[2021-05-19] MEDS: ATORVASTATIN CA 80 MG TABLET (FP) PO SCH (21:10)
[2021-05-20] MEDS: methylPREDNISolone NA SUCC 40 MG/1 ML VIAL IVPUSH SCH ×3 (05:25→17:05)
[2021-05-20] MEDS: INSULIN SLIDING SCALE (NOVOLOG) 1 VIAL SQ SCH ×4 (06:57→21:24)
[2021-05-20] MEDS: GEMFIBROZIL 600 MG TABLET (FP) PO SCH ×2 (06:57→16:34)
[2021-05-20] MEDS: TAMSULOSIN HCL 0.4 MG CAP PO SCH (08:12)
[2021-05-20] MEDS: guaiFENesin/CODEINE 10 ML UNIT-DOSE CUPS PO PRN ×3 (08:13→21:26)
[2021-05-20 08:18] LABS: ALBUMIN 3.4 g/dl (3.4-5.0); BILIRUBIN,TOTAL 0.4 mg/dl (0.2-1); CALCIUM 9.4 mg/dl (8.5-10); CREATININE 1.8 mg/dl (0.55-1.3); TOT PROT 6.1 g/dl (6.4-8.2)
[2021-05-20] MEDS ORDERED: SODIUM CHLORIDE 50 ML IVPB ONE (09:04)
[2021-05-20] MEDS ORDERED: cefTRIAXone SODIUM 1 GM VIAL ONE (09:04)
[2021-05-20] MEDS: FUROSEMIDE 40 MG/4 ML INJECTABLE VIAL IVPUSH SCH (09:20)
[2021-05-20] MEDS: CEFTRIAXONE 1 GM in SODIUM CHLORIDE 50 ML IVPB SCH (09:20)
[2021-05-20] MEDS: SACUBITRIL/VALSARTAN 24 MG-26 MG TABLET PO SCH ×2 (09:20→21:25)
[2021-05-20] MEDS: metoPROLOL SUCCINATE 25 MG TAB.SR.24H (FP) PO SCH (09:21)
[2021-05-20] MEDS: ASPIRIN COATED 81 MG TABLET.EC PO SCH (09:21)
[2021-05-20] MEDS: CLOPIDOGREL BISULFATE 75 MG TABLET (FP) PO SCH (09:21)
[2021-05-20] MEDS: AZITHROMYCIN IVPB 500 MG/250 ML BAG IVPB SCH (09:21)
[2021-05-20] MEDS: BUDESONIDE/FORMETEROL FUMARATE 160/4.5 mcg INHALER IH SCH ×2 (09:22→21:29)
[2021-05-20 11:22] LABS: HEMATOCRIT 36.3 % (35.4-49); HEMOGLOBIN 12.4 GM/dL (11.7-16.9); LYMPH % 9.8 % (8-40); MCH 33.6 pg (25.7-33.7); MCHC 34.1 g/dl (32.0-35.9); MEAN CELL VOLUME 98.6 fl (80-96); MEAN PLT VOLUME 9.9 fl (7.5-11.1); MONO % 6.4 % (3.8-10.2); NEUT % 83.8 % (42.8-82.8); PLATELET COUNT 249 10^3/uL (134-434); RBC 3.68 M/mm3 (4.00-5.60); RDW 13.2 % (11.9-15.9); WHITE BLOOD COUNT 10.2 K/mm3 (4.0-10.0)
[2021-05-20] MEDS: FLUTICASONE PROP 0.05% 16 GM NASAL SPRAY NS SCH (21:25)
[2021-05-20] MEDS: ATORVASTATIN CA 80 MG TABLET (FP) PO SCH (21:25)
[2021-05-20] MEDS: ALBUTEROL SO4 0.083% IH SOL 2.5 MG/3 ML VIAL.NEB. NEB PRN (21:26)
[2021-05-21] MEDS: methylPREDNISolone NA SUCC 40 MG/1 ML VIAL IVPUSH SCH ×3 (03:14→17:29)
[2021-05-21] MEDS: guaiFENesin/CODEINE 10 ML UNIT-DOSE CUPS PO PRN ×4 (04:35→21:04)
[2021-05-21] MEDS: ALBUTEROL SO4 0.083% IH SOL 2.5 MG/3 ML VIAL.NEB. NEB PRN ×2 (04:35→21:03)
[2021-05-21] MEDS: INSULIN SLIDING SCALE (NOVOLOG) 1 VIAL SQ SCH ×4 (06:44→21:03)
[2021-05-21] MEDS: GEMFIBROZIL 600 MG TABLET (FP) PO SCH ×2 (06:45→16:19)
[2021-05-21] MEDS: TAMSULOSIN HCL 0.4 MG CAP PO SCH (08:02)
[2021-05-21 09:09] LABS: ALBUMIN 3.6 g/dl (3.4-5.0); BILIRUBIN,TOTAL 0.5 mg/dl (0.2-1); CREATININE 2.2 mg/dl (0.55-1.3); TOT PROT 6.3 g/dl (6.4-8.2)
[2021-05-21] MEDS ORDERED: cefTRIAXone SODIUM 1 GM VIAL ONE (09:20)
[2021-05-21] MEDS ORDERED: SODIUM CHLORIDE 50 ML IVPB ONE (09:20)
[2021-05-21] MEDS: CEFTRIAXONE 1 GM in SODIUM CHLORIDE 50 ML IVPB SCH (09:26)
[2021-05-21] MEDS: CLOPIDOGREL BISULFATE 75 MG TABLET (FP) PO SCH (09:26)
[2021-05-21] MEDS: SACUBITRIL/VALSARTAN 24 MG-26 MG TABLET PO SCH ×2 (09:26→21:03)
[2021-05-21] MEDS: metoPROLOL SUCCINATE 25 MG TAB.SR.24H (FP) PO SCH (09:26)
[2021-05-21] MEDS: ASPIRIN COATED 81 MG TABLET.EC PO SCH (09:26)
[2021-05-21] MEDS: BUDESONIDE/FORMETEROL FUMARATE 160/4.5 mcg INHALER IH SCH ×2 (09:26→21:02)
[2021-05-21] MEDS: FLUTICASONE PROP 0.05% 16 GM NASAL SPRAY NS SCH ×2 (09:27→21:02)
[2021-05-21] MEDS: AZITHROMYCIN IVPB 500 MG/250 ML BAG IVPB SCH (09:27)
[2021-05-21] MEDS ORDERED: FUROSEMIDE 40 MG TABLET (FP) PO SCH (10:00)
[2021-05-21] MEDS ORDERED: FUROSEMIDE 20 MG TABLET (FP) PO SCH (10:00)
[2021-05-21 10:04] LABS: BASO % 0.1 % (0-2.0); HEMOGLOBIN 12.9 GM/dL (11.7-16.9); LYMPH % 9.9 % (8-40); MCH 33.3 pg (25.7-33.7); MCHC 33.9 g/dl (32.0-35.9); MEAN CELL VOLUME 98.2 fl (80-96); MEAN PLT VOLUME 9.3 fl (7.5-11.1); MONO % 5.9 % (3.8-10.2); NEUT % 84.1 % (42.8-82.8); PLATELET COUNT 247 10^3/uL (134-434); RBC 3.87 M/mm3 (4.00-5.60); WHITE BLOOD COUNT 9.6 K/mm3 (4.0-10.0)
[2021-05-21 10:27] LABS: N-TERMINAL BNP 4781.2 pg/ml (5-450)
[2021-05-21] MEDS ORDERED: MAGNESIUM HYDROX 2400MG/30ML ORAL SUSPENSION 30 ML CUP PO PRN (18:11)
[2021-05-21] MEDS: ATORVASTATIN CA 80 MG TABLET (FP) PO SCH (21:03)
[2021-05-22] MEDS: methylPREDNISolone NA SUCC 40 MG/1 ML VIAL IVPUSH SCH ×2 (02:08→09:16)
[2021-05-22] MEDS: GEMFIBROZIL 600 MG TABLET (FP) PO SCH ×2 (06:33→16:12)
[2021-05-22] MEDS: INSULIN SLIDING SCALE (NOVOLOG) 1 VIAL SQ SCH ×3 (06:35→16:13)
[2021-05-22 08:24] LABS: ALBUMIN 2.9 g/dl (3.4-5.0); BILIRUBIN,TOTAL 0.5 mg/dl (0.2-1); CALCIUM 8.3 mg/dl (8.5-10); CREATININE 2.1 mg/dl (0.55-1.3); TOT PROT 5.2 g/dl (6.4-8.2)
[2021-05-22] MEDS ORDERED: SODIUM CHLORIDE 50 ML IVPB ONE (09:01)
[2021-05-22] MEDS ORDERED: cefTRIAXone SODIUM 1 GM VIAL ONE (09:01)
[2021-05-22] MEDS ORDERED: INSULIN (NOVOLOG) ASPART 100 UNITS/ML 10ML VIAL SQ ONE (09:10)
[2021-05-22] MEDS: CLOPIDOGREL BISULFATE 75 MG TABLET (FP) PO SCH (09:14)
[2021-05-22] MEDS: TAMSULOSIN HCL 0.4 MG CAP PO SCH (09:14)
[2021-05-22] MEDS: SACUBITRIL/VALSARTAN 24 MG-26 MG TABLET PO SCH (09:15)
[2021-05-22] MEDS: ASPIRIN COATED 81 MG TABLET.EC PO SCH (09:15)
[2021-05-22] MEDS: metoPROLOL SUCCINATE 25 MG TAB.SR.24H (FP) PO SCH (09:15)
[2021-05-22] MEDS: CEFTRIAXONE 1 GM in SODIUM CHLORIDE 50 ML IVPB SCH (09:16)
[2021-05-22] MEDS: FLUTICASONE PROP 0.05% 16 GM NASAL SPRAY NS SCH (09:30)
[2021-05-22] MEDS: BUDESONIDE/FORMETEROL FUMARATE 160/4.5 mcg INHALER IH SCH (09:32)
[2021-05-22] MEDS ORDERED: SODIUM CHLORIDE IVPB SCH (10:00)
[2021-05-22] MEDS ORDERED: AZITHROMYCIN IVPB SCH (10:00)
[2021-05-22 13:56] VITALS: BP 122/52; PULSE 89; TEMP 98.6
[2021-05-22] MEDS ORDERED: INSULIN SLIDING SCALE (NOVOLOG) 1 VIAL SQ ONE (17:15)
[2021-05-22] MEDS ORDERED: AMOX TR/POT CLAV 875MG/125MG TABLETS (FP) PO SCH (17:30)
[2021-05-23] MEDS ORDERED: predniSONE 20 MG TABLET (UD) PO SCH (10:00)
== END 2021-05-22 17:30 | disposition home or self-care (01) | DRG 291 ==
LOC: FER 20:28 → FM/S 22:33 → UNDOADMOB 05-17 00:28 → FM/S 05-17 00:28 → OBSVTOIN 05-18 16:11
PROVIDERS: ADMIT Internal Medicine; ATTEND Internal Medicine
DX: I13.0 Hypertensive heart and chronic kidney disease with heart failure and stage 1 through stage 4 chronic kidney disease, or unspecified chronic kidney disease (principal); I50.43 Acute on chronic combined systolic (congestive) and diastolic (congestive) heart failure; I48.20 Chronic atrial fibrillation, unspecified; I25.10 Atherosclerotic heart disease of native coronary artery without angina pectoris; E78.5 Hyperlipidemia, unspecified; E11.22 Type 2 diabetes mellitus with diabetic chronic kidney disease; N18.2 Chronic kidney disease, stage 2 (mild); J20.9 Acute bronchitis, unspecified; N40.0 Benign prostatic hyperplasia without lower urinary tract symptoms; E66.9 Obesity, unspecified; Z68.32 Body mass index [BMI] 32.0-32.9, adult; Z95.5 Presence of coronary angioplasty implant and graft; Z95.810 Presence of automatic (implantable) cardiac defibrillator
CPT/HCPCS: 36415; 71045-TC-FY; 71046-TC-FY; 76775-TC; 80053; 80061; 81003; 81015; 82550; 82553; 82962; 83735; 83880; 84484; 85025; 87040; 87804; 87807; 93005; 93306-TC; 94640; 99285-25; C9803; G0378; U0003; U0005

== ENCOUNTER 2021-05-24 00:45 | Inpatient (IN) | payer OTHER, MEDICARE ==
[2021-05-24 01:04] VITALS: BMI 32.1
[2021-05-24] MEDS ORDERED: INSULIN REGULAR HUMAN 100 UNITS/ML *VIAL SQ ONE (01:13)
[2021-05-24] MEDS ORDERED: INSULIN REGULAR HUMAN 100 UNITS/ML *VIAL ONE ×2 (01:16→02:48)
[2021-05-24 02:09] LABS: HEMATOCRIT 21.2 % (35.4-49); MCH 31.7 pg (25.7-33.7); MCHC 32.3 g/dl (32.0-35.9); MEAN CELL VOLUME 98.3 fl (80-96); MEAN PLT VOLUME 9.8 fl (7.5-11.1); PLATELET COUNT 257 10^3/uL (134-434); RBC 2.16 M/mm3 (4.00-5.60); WHITE BLOOD COUNT 12.5 K/mm3 (4.0-10.0)
[2021-05-24 02:15] LABS: HEMOGLOBIN 6.8 GM/dL (11.7-16.9)
[2021-05-24] MEDS ORDERED: SODIUM CHLORIDE 250 ML IV STA (02:21)
[2021-05-24 02:29] LABS: CHLORIDE 95 mmol/L (98-107); SODIUM 128 mmol/L (136-145)
[2021-05-24 02:32] LABS: ANION GAP 17 MMOL/L (8-16); CO2 17 mmol/L (21-32)
[2021-05-24 02:35] LABS: CREATININE 2.9 mg/dL (0.55-1.3); SGOT/AST 10 U/L (15-37); SGPT/ALT 14 U/L (13-61)
[2021-05-24 02:37] LABS: BILIRUBIN,TOTAL 0.2 mg/dL (0.2-1)
[2021-05-24 02:38] LABS: ALK PHOS 106 U/L (45-117)
[2021-05-24] MEDS ORDERED: INSULIN REGULAR HUMAN 100 UNITS/ML *VIAL IVPUSH ONE (02:40)
[2021-05-24 02:56] LABS: ALBUMIN 2.6 g/dl (3.4-5.0); BLOOD UREA NITROGEN > 150.0 mg/dL (7-18); GLUCOSE,RANDOM > 500 mg/dL (74-106)
[2021-05-24] MEDS ORDERED: PANTOPRAZOLE SODIUM 40 MG VIAL IVPB ONE (03:06)
[2021-05-24] MEDS ORDERED: PANTOPRAZOLE SODIUM 40 MG VIAL ONE (03:07)
[2021-05-24 03:23] LABS: HEMATOCRIT 18.3 % (35.4-49); MCH 32.6 pg (25.7-33.7); MCHC 33.2 g/dl (32.0-35.9); MEAN CELL VOLUME 98.2 fl (80-96); MEAN PLT VOLUME 9.8 fl (7.5-11.1); PLATELET COUNT 211 10^3/uL (134-434); RBC 1.87 M/mm3 (4.00-5.60); RDW 12.8 % (11.9-15.9); WHITE BLOOD COUNT 11.1 K/mm3 (4.0-10.0)
[2021-05-24 03:28] LABS: HEMOGLOBIN 6.1 GM/dL (11.7-16.9)
[2021-05-24] MEDS ORDERED: SODIUM CHLORIDE 500 ML IV STA (03:50)
[2021-05-24] MEDS ORDERED: PANTOPRAZOLE SODIUM 40 MG VIAL IVPUSH ONE (05:29)
[2021-05-24] MEDS ORDERED: PANTOPRAZOLE SODIUM 80 MG in SODIUM CHLORIDE 100 ML IVPB SCH (05:30)
[2021-05-24] MEDS ORDERED: INSULIN SLIDING SCALE (NOVOLOG) 1 VIAL SQ SCH ×3 (07:00→12:00)
[2021-05-24] MEDS ORDERED: DEXTROSE 50%-WATER - 25 GM/50 ML VIAL IVPUSH PRN (07:14)
[2021-05-24] MEDS ORDERED: INSULIN REGULAR HUMAN 100 UNITS/ML *VIAL* (FOR IVP) IVPUSH ONE (07:14)
[2021-05-24] MEDS ORDERED: INSULIN REGULAR 100 UNITS in SODIUM CHLORIDE 99 ML IVPB SCH (07:15)
[2021-05-24] MEDS ORDERED: SODIUM CHLORIDE 1,000 ML IV SCH ×3 (07:30→20:45)
[2021-05-24 08:12] LABS: VENOUS BASE EXCESS -10.5 mmol/L (-2-2)
[2021-05-24 08:17] LABS: CHLORIDE 100 mmol/L (98-107); SODIUM 130 mmol/L (136-145)
[2021-05-24 08:19] LABS: ALBUMIN 2.3 g/dl (3.4-5.0); ANION GAP 11 MMOL/L (8-16); CALCIUM 7.7 mg/dL (8.5-10.1); CO2 20 mmol/L (21-32); MAGNESIUM 2.7 mg/dL (1.8-2.4); VENOUS PH 7.158 (7.310-7.410)
[2021-05-24 08:20] LABS: VENOUS O2 SATURATION 98.9 % (70-80); VENOUS PCO2 50.1 mmHg (38-52)
[2021-05-24 08:22] LABS: CREATININE 2.8 mg/dL (0.55-1.3); PHOSPHOROUS 3.8 mg/dL (2.5-4.9); SGOT/AST 9 U/L (15-37); SGPT/ALT 13 U/L (13-61)
[2021-05-24 08:24] LABS: BILIRUBIN,TOTAL 0.2 mg/dL (0.2-1); TOT PROT 4.3 g/dl (6.4-8.2)
[2021-05-24 08:25] LABS: ALK PHOS 85 U/L (45-117)
[2021-05-24] MEDS ORDERED: INSULIN (LEVEMIR) 100 UNITS/ML UNITS SQ SCH (09:15)
[2021-05-24] MEDS ORDERED: SACUBITRIL/VALSARTAN 24 MG-26 MG TABLET PO SCH (10:00)
[2021-05-24 10:09] LABS: ANISOCYTOSIS 1+; MACROCYTOSIS 0; PLATELET ESTIMATE NORMAL
[2021-05-24 10:17] LABS: ANISOCYTOSIS 0; HELMET CELLS 0; HOWELL-JOLLY BODIES 0; MACROCYTOSIS 0; OVALOCYTE 0; PLATELET ESTIMATE NORMAL; ROULEAU 0; SICKELED CELLS 0; TARGET CELLS 0; TEAR DROP CELLS 0; TOXIC GRANULATION 0
[2021-05-24] MEDS: MUPIROCIN 2% TOPICAL OINTMENT FOR DECOLONIZATION NS SCH ×2 (11:21→23:14)
[2021-05-24 11:44] LABS: BLOOD UREA NITROGEN 192.4 mg/dL (7-18); GLUCOSE,RANDOM 436 mg/dL (74-106)
[2021-05-24] MEDS: INSULIN SLIDING SCALE (NOVOLOG) 1 VIAL SQ SCH ×2 (13:59→18:22)
[2021-05-24] MEDS: PANTOPRAZOLE SODIUM 80 MG in SODIUM CHLORIDE 100 ML IVPB SCH (15:00)
[2021-05-24 17:51] LABS: URINE APPEARANCE CLEAR; URINE BILIRUBIN NEGATIVE (NEGATIVE); URINE COLOR YELLOW; URINE GLUCOSE (UA) NEGATIVE (NEGATIVE); URINE KETONE NEGATIVE (NEGATIVE); URINE LEUK ESTERASE NEGATIVE (NEGATIVE); URINE NITRITE NEGATIVE (NEGATIVE); URINE PROTEIN TRACE (NEGATIVE); URINE UROBILINOGEN 0.2 mg/dL (0.2-1.0)
[2021-05-24 18:46] LABS: HEMATOCRIT 24.4 % (35.4-49); HEMOGLOBIN 8.1 GM/dL (11.7-16.9); MCH 31.2 pg (25.7-33.7); MCHC 33.3 g/dl (32.0-35.9); MEAN CELL VOLUME 93.7 fl (80-96); MEAN PLT VOLUME 9.4 fl (7.5-11.1); PLATELET COUNT 211 10^3/uL (134-434); RBC 2.61 M/mm3 (4.00-5.60)
[2021-05-24 18:50] LABS: VENOUS O2 SATURATION 55.2 % (70-80); VENOUS PCO2 50.1 mmHg (38-52); VENOUS PH 7.227 (7.310-7.410)
[2021-05-24 18:54] LABS: INR 1.07 (0.83-1.09); PROTHROMBIN TIME (PATIENT) 12.5 SEC (9.7-13.0)
[2021-05-24 19:01] LABS: CHLORIDE 104 mmol/L (98-107); SODIUM 135 mmol/L (136-145)
[2021-05-24 19:05] LABS: ANION GAP 10 MMOL/L (8-16); CO2 21 mmol/L (21-32); GLUCOSE,RANDOM 175 mg/dL (74-106)
[2021-05-24 19:08] LABS: CREATININE 2.5 mg/dL (0.55-1.3)
[2021-05-24 19:25] LABS: BLOOD UREA NITROGEN 186.6 mg/dL (7-18)
[2021-05-24] MEDS ORDERED: CALCIUM CHLORIDE 1 GM/10 ML *DISP.SYRIN IVPB ONE (20:38)
[2021-05-24] MEDS: CHLORHEXIDINE GLUCONATE 4% CLEANSER FOR DECOLONIZATION TP SCH (23:14)
[2021-05-24] MEDS: ATORVASTATIN CA 40 MG TABLET (FP) PO SCH (23:14)
[2021-05-24] MEDS ORDERED: INSULIN (NOVOLOG) ASPART 100 UNITS/ML 10ML VIAL ONE (23:16)
[2021-05-25] MEDS: INSULIN SLIDING SCALE (NOVOLOG) 1 VIAL SQ SCH ×5 (00:16→21:12)
[2021-05-25] MEDS: PANTOPRAZOLE SODIUM 80 MG in SODIUM CHLORIDE 100 ML IVPB SCH ×3 (05:07→21:11)
[2021-05-25 07:48] LABS: HEMATOCRIT 24.9 % (35.4-49); HEMOGLOBIN 8.5 GM/dL (11.7-16.9); MCHC 34.3 g/dl (32.0-35.9); MEAN CELL VOLUME 93.3 fl (80-96); MEAN PLT VOLUME 9.2 fl (7.5-11.1); PLATELET COUNT 224 10^3/uL (134-434); RBC 2.66 M/mm3 (4.00-5.60); RDW 14.1 % (11.9-15.9); WHITE BLOOD COUNT 14.4 K/mm3 (4.0-10.0)
[2021-05-25 08:09] LABS: CHLORIDE 109 mmol/L (98-107); SODIUM 139 mmol/L (136-145)
[2021-05-25 08:16] LABS: CALCIUM 8.6 mg/dL (8.5-10.1)
[2021-05-25 08:17] LABS: ALBUMIN 2.4 g/dl (3.4-5.0); ANION GAP 10 MMOL/L (8-16); CO2 20 mmol/L (21-32); GLUCOSE,RANDOM 165 mg/dL (74-106); MAGNESIUM 2.6 mg/dL (1.8-2.4)
[2021-05-25 08:19] LABS: SGPT/ALT 13 U/L (13-61)
[2021-05-25 08:20] LABS: CREATININE 2.3 mg/dL (0.55-1.3); SGOT/AST 17 U/L (15-37)
[2021-05-25 08:21] LABS: BILIRUBIN,TOTAL 0.3 mg/dL (0.2-1); TOT PROT 4.7 g/dl (6.4-8.2)
[2021-05-25 08:23] LABS: ALK PHOS 66 U/L (45-117)
[2021-05-25 08:46] LABS: BLOOD UREA NITROGEN 168.5 mg/dL (7-18)
[2021-05-25] MEDS ORDERED: BISACODYL 10 MG SUPP.RECT PR ONE (09:45)
[2021-05-25] MEDS ORDERED: SODIUM PHOSPHATE/NA BIPHOS 133 ML ENEMA RC ONE (09:45)
[2021-05-25] MEDS: MUPIROCIN 2% TOPICAL OINTMENT FOR DECOLONIZATION NS SCH ×2 (10:58→21:11)
[2021-05-25] MEDS: POLYETHYLENE GLYCOL (HEALTHYLAX) 3350 17 GM PACKET PO SCH (11:58)
[2021-05-25 16:41] LABS: EOS % 0.3 % (0-4.5); HEMATOCRIT 25.8 % (35.4-49); HEMOGLOBIN 8.6 GM/dL (11.7-16.9); LYMPH % 4.3 % (8-40); MCH 31.4 pg (25.7-33.7); MCHC 33.6 g/dl (32.0-35.9); MEAN CELL VOLUME 93.6 fl (80-96); MEAN PLT VOLUME 9.3 fl (7.5-11.1); MONO % 4.4 % (3.8-10.2); PLATELET COUNT 298 10^3/uL (134-434); RBC 2.75 M/mm3 (4.00-5.60); RDW 14.4 % (11.9-15.9); WHITE BLOOD COUNT 20.5 K/mm3 (4.0-10.0)
[2021-05-25 17:28] LABS: ANISOCYTOSIS 1+; MACROCYTOSIS 0; PLATELET ESTIMATE NORMAL
[2021-05-25] MEDS: CHLORHEXIDINE GLUCONATE 4% CLEANSER FOR DECOLONIZATION TP SCH (21:12)
[2021-05-25] MEDS: ATORVASTATIN CA 40 MG TABLET (FP) PO SCH (21:12)
[2021-05-26] MEDS: PANTOPRAZOLE SODIUM 80 MG in SODIUM CHLORIDE 100 ML IVPB SCH ×2 (02:20→12:49)
[2021-05-26] MEDS: INSULIN SLIDING SCALE (NOVOLOG) 1 VIAL SQ SCH ×4 (06:26→21:21)
[2021-05-26 07:25] LABS: BASO % 0.1 % (0-2.0); EOS % 0.3 % (0-4.5); HEMATOCRIT 24.4 % (35.4-49); HEMOGLOBIN 8.4 GM/dL (11.7-16.9); MCH 32.6 pg (25.7-33.7); MCHC 34.5 g/dl (32.0-35.9); MEAN CELL VOLUME 94.2 fl (80-96); MEAN PLT VOLUME 9.4 fl (7.5-11.1); MONO % 6.7 % (3.8-10.2); NEUT % 87.9 % (42.8-82.8); PLATELET COUNT 304 10^3/uL (134-434); RBC 2.59 M/mm3 (4.00-5.60); RDW 14.2 % (11.9-15.9)
[2021-05-26 07:32] LABS: INR 1.15 (0.83-1.09); PROTHROMBIN TIME (PATIENT) 12.9 SEC (9.7-13.0)
[2021-05-26 07:43] LABS: CHLORIDE 111 mmol/L (98-107); SODIUM 142 mmol/L (136-145)
[2021-05-26 07:47] LABS: CALCIUM 8.9 mg/dL (8.5-10.1)
[2021-05-26 07:48] LABS: ANION GAP 11 MMOL/L (8-16); CO2 19 mmol/L (21-32); GLUCOSE,RANDOM 249 mg/dL (74-106)
[2021-05-26 07:51] LABS: CREATININE 2.6 mg/dL (0.55-1.3)
[2021-05-26] MEDS: POLYETHYLENE GLYCOL (HEALTHYLAX) 3350 17 GM PACKET PO SCH ×2 (09:23→21:14)
[2021-05-26] MEDS: MUPIROCIN 2% TOPICAL OINTMENT FOR DECOLONIZATION NS SCH (12:48)
[2021-05-26] MEDS ORDERED: SODIUM CHLORIDE 0.45% 1,000 ML IV SCH (16:30)
[2021-05-26] MEDS ORDERED: DEXTROSE 50%-WATER - 25 GM/50 ML VIAL IVPUSH PRN (18:49)
[2021-05-26] MEDS ORDERED: INSULIN (NOVOLOG) ASPART 100 UNITS/ML 10ML VIAL ONE (20:49)
[2021-05-26] MEDS: ATORVASTATIN CA 40 MG TABLET (FP) PO SCH (21:14)
[2021-05-26] MEDS ORDERED: CHLORHEXIDINE GLUCONATE 4% CLEANSER FOR DECOLONIZATION TP SCH (22:00)
[2021-05-26] MEDS ORDERED: MUPIROCIN 2% TOPICAL OINTMENT FOR DECOLONIZATION NS SCH (22:00)
[2021-05-27] MEDS: POLYETHYLENE GLYCOL (HEALTHYLAX) 3350 17 GM PACKET PO SCH ×3 (06:13→21:11)
[2021-05-27] MEDS: INSULIN SLIDING SCALE (NOVOLOG) 1 VIAL SQ SCH ×4 (06:16→21:11)
[2021-05-27 08:30] LABS: BASO % 0.2 % (0-2.0); EOS % 0.1 % (0-4.5); HEMOGLOBIN 7.7 GM/dL (11.7-16.9); LYMPH % 3.8 % (8-40); MCH 31.7 pg (25.7-33.7); MCHC 33.5 g/dl (32.0-35.9); MEAN CELL VOLUME 94.6 fl (80-96); MONO % 5.4 % (3.8-10.2); NEUT % 90.5 % (42.8-82.8); PLATELET COUNT 262 10^3/uL (134-434); RBC 2.43 M/mm3 (4.00-5.60); RDW 14.1 % (11.9-15.9)
[2021-05-27 08:41] LABS: CHLORIDE 108 mmol/L (98-107); SODIUM 140 mmol/L (136-145)
[2021-05-27 08:47] LABS: ALBUMIN 2.7 g/dl (3.4-5.0); ANION GAP 12 MMOL/L (8-16); CALCIUM 8.7 mg/dL (8.5-10.1); CO2 19 mmol/L (21-32); GLUCOSE,RANDOM 230 mg/dL (74-106)
[2021-05-27 08:49] LABS: CREATININE 3.8 mg/dL (0.55-1.3)
[2021-05-27 08:50] LABS: IRON SERUM 13 ug/dL (50-175); SGOT/AST 15 U/L (15-37); SGPT/ALT 13 U/L (13-61); TOTAL IRON BINDING CAPACITY 245 ug/dL (250-450)
[2021-05-27 08:51] LABS: BILIRUBIN,TOTAL 0.5 mg/dL (0.2-1)
[2021-05-27 08:52] LABS: ALK PHOS 76 U/L (45-117)
[2021-05-27 08:57] LABS: BLOOD UREA NITROGEN 159.6 mg/dL (7-18)
[2021-05-27 09:31] LABS: WHITE BLOOD COUNT 24.6 K/mm3 (4.0-10.0)
[2021-05-27] MEDS ORDERED: SODIUM CHLORIDE 0.45% 1,000 ML IV SCH ×3 (10:00→14:15)
[2021-05-27] MEDS: PANTOPRAZOLE 40 MG TABLET PO SCH (10:18)
[2021-05-27] MEDS ORDERED: INSULIN (NOVOLOG) ASPART 100 UNITS/ML 10ML VIAL ONE (21:05)
[2021-05-27] MEDS: ATORVASTATIN CA 40 MG TABLET (FP) PO SCH (21:11)
[2021-05-27 21:25] LABS: BASO % 0.1 % (0-2.0); EOS % 0.4 % (0-4.5); HEMATOCRIT 21.3 % (35.4-49); LYMPH % 5.3 % (8-40); MCH 31.7 pg (25.7-33.7); MCHC 32.9 g/dl (32.0-35.9); MEAN CELL VOLUME 96.2 fl (80-96); MONO % 5.7 % (3.8-10.2); NEUT % 88.5 % (42.8-82.8); PLATELET COUNT 247 10^3/uL (134-434); RBC 2.22 M/mm3 (4.00-5.60); RDW 14.6 % (11.9-15.9); WHITE BLOOD COUNT 19.6 K/mm3 (4.0-10.0)
[2021-05-27 21:40] LABS: EPI CELLS 10 /uL (0-25.1); HYALINE CASTS 1 /uL (0-3.1); URINE APPEARANCE CLOUDY; URINE BACTERIA 2 /uL (0-1359); URINE BILIRUBIN NEGATIVE (NEGATIVE); URINE COLOR YELLOW; URINE GLUCOSE (UA) NEGATIVE (NEGATIVE); URINE KETONE NEGATIVE (NEGATIVE); URINE LEUK ESTERASE 2+ (NEGATIVE); URINE NITRITE NEGATIVE (NEGATIVE); URINE PROTEIN 1+ (NEGATIVE); URINE RBC 15 /uL (0-23.9); URINE UROBILINOGEN 0.2 mg/dL (0.2-1.0); URINE WBC 118 /uL (0-25.8)
[2021-05-27 21:46] LABS: CHLORIDE 110 mmol/L (98-107); SODIUM 140 mmol/L (136-145)
[2021-05-27 21:49] LABS: ALBUMIN 2.1 g/dl (3.4-5.0); CALCIUM 8.3 mg/dL (8.5-10.1); GLUCOSE,RANDOM 308 mg/dL (74-106)
[2021-05-27 21:50] LABS: ANION GAP 11 MMOL/L (8-16); CO2 19 mmol/L (21-32)
[2021-05-27 21:53] LABS: CREATININE 3.9 mg/dL (0.55-1.3); SGOT/AST 15 U/L (15-37); SGPT/ALT 12 U/L (13-61)
[2021-05-27 21:54] LABS: TOT PROT 4.6 g/dl (6.4-8.2)
[2021-05-27 21:55] LABS: ALK PHOS 78 U/L (45-117); BILIRUBIN,TOTAL 0.3 mg/dL (0.2-1)
[2021-05-27 21:58] LABS: BLOOD UREA NITROGEN 142.5 mg/dL (7-18)
[2021-05-28] MEDS: INSULIN SLIDING SCALE (NOVOLOG) 1 VIAL SQ SCH ×4 (06:07→21:23)
[2021-05-28] MEDS ORDERED: PEG 3350/NA SULF BICARB CL/KCL 4000 ML SOLN.RECON PO ONE (09:00)
[2021-05-28 09:58] LABS: BASO % 0.1 % (0-2.0); EOS % 2.9 % (0-4.5); HEMATOCRIT 22.9 % (35.4-49); HEMOGLOBIN 7.8 GM/dL (11.7-16.9); LYMPH % 7.5 % (8-40); MCH 31.7 pg (25.7-33.7); MCHC 33.9 g/dl (32.0-35.9); MEAN CELL VOLUME 93.5 fl (80-96); MEAN PLT VOLUME 8.9 fl (7.5-11.1); NEUT % 81.5 % (42.8-82.8); PLATELET COUNT 232 10^3/uL (134-434); RBC 2.45 M/mm3 (4.00-5.60); RDW 14.5 % (11.9-15.9); WHITE BLOOD COUNT 15.9 K/mm3 (4.0-10.0)
[2021-05-28 10:12] LABS: CHLORIDE 114 mmol/L (98-107); SODIUM 144 mmol/L (136-145)
[2021-05-28] MEDS: SODIUM CHLORIDE 0.45% 1,000 ML IV SCH ×2 (10:23→21:24)
[2021-05-28] MEDS: PANTOPRAZOLE 40 MG TABLET PO SCH (10:23)
[2021-05-28 10:25] LABS: CALCIUM 8.2 mg/dL (8.5-10.1)
[2021-05-28 10:26] LABS: ANION GAP 8 MMOL/L (8-16); CO2 21 mmol/L (21-32); GLUCOSE,RANDOM 189 mg/dL (74-106)
[2021-05-28 10:28] LABS: CREATININE 3.2 mg/dL (0.55-1.3); SGOT/AST 17 U/L (15-37); SGPT/ALT 13 U/L (13-61)
[2021-05-28 10:29] LABS: BILIRUBIN,TOTAL 0.4 mg/dL (0.2-1); TOT PROT 4.5 g/dl (6.4-8.2)
[2021-05-28 10:31] LABS: ALK PHOS 77 U/L (45-117)
[2021-05-28 10:32] LABS: BLOOD UREA NITROGEN 116.2 mg/dL (7-18)
[2021-05-28 10:43] LABS: MAGNESIUM 2.5 mg/dL (1.8-2.4)
[2021-05-28 10:48] LABS: PHOSPHOROUS 3.4 mg/dL (2.5-4.9)
[2021-05-28] MEDS ORDERED: PEG 3350/NA SULF BICARB CL/KCL 4000 ML SOLN.RECON PO SCH (14:00)
[2021-05-28] MEDS: ARTIFICIAL TEARS (POLYVINYL ALCOHOL) OPTH DROPS OU SCH ×2 (15:00→21:23)
[2021-05-28] MEDS ORDERED: PT OWN MED DRAWER 7, Y5N ONE (15:42)
[2021-05-28] MEDS ORDERED: BISACODYL 5 MG TABLET.DR (FP) PO ONE (18:00)
[2021-05-28 21:04] LABS: EOS % 3.2 % (0-4.5); HEMATOCRIT 25.2 % (35.4-49); HEMOGLOBIN 8.7 GM/dL (11.7-16.9); MCH 32.6 pg (25.7-33.7); MCHC 34.4 g/dl (32.0-35.9); MEAN CELL VOLUME 94.7 fl (80-96); MONO % 7.8 % (3.8-10.2); PLATELET COUNT 227 10^3/uL (134-434); RBC 2.66 M/mm3 (4.00-5.60); RDW 14.3 % (11.9-15.9); WHITE BLOOD COUNT 14.5 K/mm3 (4.0-10.0)
[2021-05-28] MEDS ORDERED: INSULIN (NOVOLOG) ASPART 100 UNITS/ML 10ML VIAL ONE (21:17)
[2021-05-28] MEDS: ATORVASTATIN CA 40 MG TABLET (FP) PO SCH (21:23)
[2021-05-28 21:26] LABS: CALCIUM 8.1 mg/dL (8.5-10.1)
[2021-05-28 21:30] LABS: CREATININE 2.6 mg/dL (0.55-1.3)
[2021-05-29] MEDS: INSULIN SLIDING SCALE (NOVOLOG) 1 VIAL SQ SCH ×4 (05:59→21:19)
[2021-05-29] MEDS: ARTIFICIAL TEARS (POLYVINYL ALCOHOL) OPTH DROPS OU SCH ×3 (06:01→21:20)
[2021-05-29] MEDS ORDERED: SODIUM CHLORIDE 0.45% 1,000 ML IV SCH (08:00)
[2021-05-29 09:29] LABS: BASO % 0.1 % (0-2.0); HEMATOCRIT 26.1 % (35.4-49); HEMOGLOBIN 9.1 GM/dL (11.7-16.9); MCH 32.7 pg (25.7-33.7); MCHC 34.8 g/dl (32.0-35.9); MEAN CELL VOLUME 93.8 fl (80-96); MEAN PLT VOLUME 9.2 fl (7.5-11.1); MONO % 7.3 % (3.8-10.2); NEUT % 79.6 % (42.8-82.8); PLATELET COUNT 258 10^3/uL (134-434); RBC 2.78 M/mm3 (4.00-5.60); RDW 14.8 % (11.9-15.9); WHITE BLOOD COUNT 14.3 K/mm3 (4.0-10.0)
[2021-05-29 09:45] LABS: BLOOD UREA NITROGEN 86.3 mg/dL (7-18)
[2021-05-29 09:48] LABS: ALBUMIN 2.2 g/dl (3.4-5.0); CALCIUM 8.4 mg/dL (8.5-10.1)
[2021-05-29] MEDS: PANTOPRAZOLE 40 MG TABLET PO SCH (09:50)
[2021-05-29] MEDS: TAMSULOSIN HCL 0.4 MG CAP PO SCH (09:50)
[2021-05-29] MEDS: SODIUM CHLORIDE 0.45% 1,000 ML IV SCH ×2 (09:51→14:05)
[2021-05-29 09:53] LABS: BILIRUBIN,TOTAL 0.6 mg/dL (0.2-1); CREATININE 2.3 mg/dL (0.55-1.3); TOT PROT 4.8 g/dl (6.4-8.2)
[2021-05-29] MEDS ORDERED: INSULIN (NOVOLOG) ASPART 100 UNITS/ML 10ML VIAL ONE ×2 (16:35→20:49)
[2021-05-29] MEDS: ATORVASTATIN CA 40 MG TABLET (FP) PO SCH (21:19)
[2021-05-30] MEDS: SODIUM CHLORIDE 0.45% 1,000 ML IV SCH (04:45)
[2021-05-30] MEDS: ARTIFICIAL TEARS (POLYVINYL ALCOHOL) OPTH DROPS OU SCH ×3 (05:53→21:06)
[2021-05-30] MEDS: INSULIN SLIDING SCALE (NOVOLOG) 1 VIAL SQ SCH ×4 (06:17→21:05)
[2021-05-30 08:57] LABS: BASO % 0.2 % (0-2.0); EOS % 3.3 % (0-4.5); HEMATOCRIT 23.2 % (35.4-49); LYMPH % 9.7 % (8-40); MCH 32.3 pg (25.7-33.7); MCHC 34.7 g/dl (32.0-35.9); MEAN CELL VOLUME 93.2 fl (80-96); NEUT % 78.8 % (42.8-82.8); PLATELET COUNT 253 10^3/uL (134-434); RBC 2.49 M/mm3 (4.00-5.60); RDW 14.3 % (11.9-15.9)
[2021-05-30] MEDS: TAMSULOSIN HCL 0.4 MG CAP PO SCH (08:59)
[2021-05-30 09:45] LABS: ALBUMIN 2.1 g/dl (3.4-5.0); CALCIUM 8.1 mg/dL (8.5-10.1)
[2021-05-30 09:48] LABS: CREATININE 1.6 mg/dL (0.55-1.3)
[2021-05-30 09:50] LABS: BILIRUBIN,TOTAL 0.5 mg/dL (0.2-1); TOT PROT 4.6 g/dl (6.4-8.2)
[2021-05-30] MEDS: PANTOPRAZOLE 40 MG TABLET PO SCH (10:30)
[2021-05-30 15:08] LABS: GLIADIN ANTIBODY IGA 3 units (0-19); GLIADIN ANTIBODY IGG 2 units (0-19); TRANSGLUTAMINASE IGG < 2 U/mL (0-5)
[2021-05-30] MEDS ORDERED: BISACODYL 5 MG TABLET.DR (FP) PO ONE (16:00)
[2021-05-30] MEDS ORDERED: PEG 3350/NA SULF BICARB CL/KCL 4000 ML SOLN.RECON PO ONE (17:00)
[2021-05-30] MEDS: ATORVASTATIN CA 40 MG TABLET (FP) PO SCH (21:06)
[2021-05-31] MEDS: ARTIFICIAL TEARS (POLYVINYL ALCOHOL) OPTH DROPS OU SCH ×3 (05:54→21:23)
[2021-05-31] MEDS: INSULIN SLIDING SCALE (NOVOLOG) 1 VIAL SQ SCH ×4 (06:10→21:25)
[2021-05-31] MEDS ORDERED: DEXTROSE 5%-0.45% SALINE 1,000 ML IV SCH (07:00)
[2021-05-31] MEDS: TAMSULOSIN HCL 0.4 MG CAP PO SCH ×2 (09:34→21:23)
[2021-05-31] MEDS: PANTOPRAZOLE 40 MG TABLET PO SCH (09:34)
[2021-05-31 09:35] LABS: BASO % 0.3 % (0-2.0); EOS % 2.9 % (0-4.5); HEMATOCRIT 26.2 % (35.4-49); LYMPH % 10.7 % (8-40); MCH 32.7 pg (25.7-33.7); MCHC 34.6 g/dl (32.0-35.9); MEAN CELL VOLUME 94.5 fl (80-96); MEAN PLT VOLUME 8.8 fl (7.5-11.1); MONO % 8.3 % (3.8-10.2); NEUT % 77.8 % (42.8-82.8); PLATELET COUNT 309 10^3/uL (134-434); RBC 2.77 M/mm3 (4.00-5.60); RDW 14.6 % (11.9-15.9)
[2021-05-31 10:04] LABS: CALCIUM 7.8 mg/dL (8.5-10.1)
[2021-05-31 10:06] LABS: ALBUMIN 2.1 g/dl (3.4-5.0)
[2021-05-31 10:08] LABS: CREATININE 1.6 mg/dL (0.55-1.3)
[2021-05-31 10:09] LABS: BILIRUBIN,TOTAL 0.5 mg/dL (0.2-1); TOT PROT 4.8 g/dl (6.4-8.2)
[2021-05-31 10:12] LABS: BLOOD UREA NITROGEN 36.6 mg/dL (7-18)
[2021-05-31] MEDS: ATORVASTATIN CA 40 MG TABLET (FP) PO SCH (21:23)
[2021-05-31] MEDS: SACUBITRIL/VALSARTAN 24 MG-26 MG TABLET PO SCH (21:23)
[2021-06-01] MEDS: ARTIFICIAL TEARS (POLYVINYL ALCOHOL) OPTH DROPS OU SCH ×2 (05:46→14:27)
[2021-06-01] MEDS: INSULIN SLIDING SCALE (NOVOLOG) 1 VIAL SQ SCH ×3 (06:02→17:33)
[2021-06-01 08:36] LABS: BASO % 0.3 % (0-2.0); HEMATOCRIT 25.7 % (35.4-49); HEMOGLOBIN 8.7 GM/dL (11.7-16.9); LYMPH % 7.9 % (8-40); MCH 32.2 pg (25.7-33.7); MCHC 33.8 g/dl (32.0-35.9); MEAN CELL VOLUME 95.1 fl (80-96); MEAN PLT VOLUME 8.8 fl (7.5-11.1); NEUT % 81.8 % (42.8-82.8); PLATELET COUNT 281 10^3/uL (134-434); RDW 14.1 % (11.9-15.9); WHITE BLOOD COUNT 12.7 K/mm3 (4.0-10.0)
[2021-06-01 09:01] LABS: BLOOD UREA NITROGEN 30.6 mg/dL (7-18); CALCIUM 8.2 mg/dL (8.5-10.1)
[2021-06-01 09:04] LABS: CREATININE 1.5 mg/dL (0.55-1.3); URIC ACID 9.2 mg/dL (2.6-7.2)
[2021-06-01 09:05] LABS: TOT PROT 4.7 g/dl (6.4-8.2)
[2021-06-01 09:06] LABS: BILIRUBIN,TOTAL 0.7 mg/dL (0.2-1)
[2021-06-01] MEDS: TAMSULOSIN HCL 0.4 MG CAP PO SCH (09:08)
[2021-06-01] MEDS ORDERED: PT OWN MED DRAWER 7, Y5N ONE (09:17)
[2021-06-01] MEDS: SACUBITRIL/VALSARTAN 24 MG-26 MG TABLET PO SCH (09:23)
[2021-06-01] MEDS: PANTOPRAZOLE 40 MG TABLET PO SCH (09:23)
[2021-06-01] MEDS ORDERED: COLCHICINE 0.6 MG CAPSULE PO SCH (11:15)
[2021-06-01] MEDS ORDERED: INSULIN (NOVOLOG) ASPART 100 UNITS/ML 10ML VIAL ONE (12:09)
[2021-06-01 14:21] VITALS: BP 133/69; PULSE 104; TEMP 98
[2021-06-01] MEDS ORDERED: ASPIRIN 81 MG CHEWABLE TABLETS PO SCH (17:00)
[2021-06-02] MEDS ORDERED: metoPROLOL SUCCINATE 25 MG TAB.SR.24H (FP) PO SCH (10:00)
== END 2021-06-01 18:36 | disposition home or self-care (01) | DRG 377 ==
LOC: FER 00:45 → JICU 05:30 → J6S 05-26 18:29
PROVIDERS: ADMIT Internal Medicine; ATTEND Internal Medicine
PROC: 30233N1 Transfusion of Nonautologous Red Blood Cells into Peripheral Vein, Percutaneous Approach (ICD-10-PCS; principal; 2021-05-24)
PROC: 0DBN8ZX Excision of Sigmoid Colon, Via Natural or Artificial Opening Endoscopic, Diagnostic (ICD-10-PCS; 2021-05-31)
PROC: 0DBL8ZX Excision of Transverse Colon, Via Natural or Artificial Opening Endoscopic, Diagnostic (ICD-10-PCS; 2021-05-31)
DX: K92.2 Gastrointestinal hemorrhage, unspecified (principal); E11.10 Type 2 diabetes mellitus with ketoacidosis without coma; D62 Acute posthemorrhagic anemia; I13.0 Hypertensive heart and chronic kidney disease with heart failure and stage 1 through stage 4 chronic kidney disease, or unspecified chronic kidney disease; N17.9 Acute kidney failure, unspecified; E87.1 Hypo-osmolality and hyponatremia; I50.22 Chronic systolic (congestive) heart failure; I25.10 Atherosclerotic heart disease of native coronary artery without angina pectoris; K92.1 Melena; E11.22 Type 2 diabetes mellitus with diabetic chronic kidney disease; N18.2 Chronic kidney disease, stage 2 (mild); E78.5 Hyperlipidemia, unspecified; I45.10 Unspecified right bundle-branch block; I35.1 Nonrheumatic aortic (valve) insufficiency; I27.20 Pulmonary hypertension, unspecified; N40.0 Benign prostatic hyperplasia without lower urinary tract symptoms; D72.829 Elevated white blood cell count, unspecified; E11.65 Type 2 diabetes mellitus with hyperglycemia; K64.4 Residual hemorrhoidal skin tags; M10.9 Gout, unspecified; N13.9 Obstructive and reflux uropathy, unspecified; R33.9 Retention of urine, unspecified; E66.9 Obesity, unspecified; Z68.32 Body mass index [BMI] 32.0-32.9, adult; M25.572 Pain in left ankle and joints of left foot; K57.90 Diverticulosis of intestine, part unspecified, without perforation or abscess without bleeding; Z95.810 Presence of automatic (implantable) cardiac defibrillator; Z95.5 Presence of coronary angioplasty implant and graft; Z79.52 Long term (current) use of systemic steroids
CPT/HCPCS: 36415; 36430; 36511; 71045-TC-FY; 74176-TC; 80048; 80053; 81003; 82010; 82272; 82436; 82550; 82570; 82728; 82784; 82803; 82962; 83516; 83540; 83550; 83605; 83735; 83880; 83930; 84100; 84133; 84300; 84484; 84550; 85025; 85027; 85045; 85610; 86850; 86900; 86901; 86922; 87086; 93005; 93971-TC; 97116-GP; 97161-GP; 99285-25; C9803; P9038; P9058; U0003; U0005

== ENCOUNTER 2021-10-12 20:58 | Emergency (ER) | payer OTHER, MEDICARE ==
[2021-10-12 21:23] VITALS: BP 141/58; PULSE 104; TEMP 97.9; BMI 27.3
[2021-10-12] MEDS ORDERED: CIPROFLOXACIN 500 MG TABLET (RESTRICTED TO ID) PO ONE (21:25)
[2021-10-12] MEDS ORDERED: CIPROFLOXACIN 250 MG TABLET (RESTRICTED TO ID) PO ONE (21:30)
== END 2021-10-12 21:32 | disposition home or self-care (01) ==
LOC: FER 20:58
DX: T83.9XXA Unspecified complication of genitourinary prosthetic device, implant and graft, initial encounter (principal)
CPT/HCPCS: 81003; 81015; 87086; 87186; 99283-25

== ENCOUNTER 2021-11-03 10:27 | Emergency (ER) | payer OTHER, MEDICARE ==
[2021-11-03 10:36] VITALS: BP 136/69; PULSE 69; TEMP 98.8; BMI 19.9
[2021-11-03 11:34] LABS: INR 1.27 (0.83-1.09); PROTHROMBIN TIME (PATIENT) 14.6 SEC (9.7-13.0)
[2021-11-03 11:36] LABS: HEMATOCRIT 30.3 % (35.4-49); HEMOGLOBIN 10.7 G/dL (11.7-16.9); MCH 32.5 pg (25.7-33.7); MCHC 35.2 g/dl (32.0-35.9); MEAN CELL VOLUME 92.3 fl (80-96); MEAN PLT VOLUME 9.2 fl (7.5-11.1); PLATELET COUNT 233.2 10^3/uL (134-434); RBC 3.28 10^6/uL (4.00-5.60); RDW 15.2 % (11.9-15.9); WHITE BLOOD COUNT 8.1 10^3/uL (4.0-10.8)
[2021-11-03 11:43] LABS: EPITHELIAL CELLS FEW /hpf
[2021-11-03 12:21] LABS: ALBUMIN 3.4 g/dl (3.4-5.0); BILIRUBIN,TOTAL 0.5 mg/dl (0.2-1); CALCIUM 9.8 mg/dl (8.5-10); CREATININE 1.7 mg/dl (0.55-1.3)
[2021-11-03] MEDS ORDERED: CEFPODOXIME PROXETIL 200 MG TABLET [NF] PO ONE (12:30)
== END 2021-11-03 12:37 | disposition home or self-care (01) ==
LOC: FER 10:27
DX: R33.9 Retention of urine, unspecified (principal); R31.9 Hematuria, unspecified
CPT/HCPCS: 36415; 80053; 81003; 81015; 85027; 85610; 87086; 87186; 99283-25

== ENCOUNTER 2022-02-10 13:34 | Emergency (ER) | payer OTHER, MEDICARE ==
[2022-02-10 13:48] VITALS: BMI 29.0
[2022-02-10 14:34] LABS: HEMATOCRIT 36.8 % (35.4-49); HEMOGLOBIN 12.8 G/dL (11.7-16.9); MCH 32.5 pg (25.7-33.7); MCHC 34.7 g/dl (32.0-35.9); MEAN CELL VOLUME 93.6 fl (80-96); MEAN PLT VOLUME 9.3 fl (7.5-11.1); PLATELET COUNT 243.9 10^3/uL (134-434); RBC 3.93 10^6/uL (4.00-5.60); RDW 16.2 % (11.9-15.9); WHITE BLOOD COUNT 8.8 10^3/uL (4.0-10.8)
[2022-02-10 14:53] LABS: ALBUMIN 3.8 g/dl (3.4-5.0); BILIRUBIN,TOTAL 0.8 mg/dl (0.2-1); CALCIUM 9.6 mg/dl (8.5-10); CREATININE 1.9 mg/dl (0.55-1.3); INR 1.9 (0.83-1.09); TOT PROT 6.6 g/dl (6.4-8.2)
[2022-02-10 15:16] LABS: ANISOCYTOSIS 1+; PLATELET ESTIMATE ADEQUATE
[2022-02-10 17:05] VITALS: BP 121/72; PULSE 101; RESP 18; TEMP 98
== END 2022-02-10 16:45 | disposition left against medical advice (07) ==
LOC: FER 13:34
DX: I49.9 Cardiac arrhythmia, unspecified (principal)
CPT/HCPCS: 0241U-QW; 36415; 71045-TC-FY; 80053; 84484; 85027; 85610; 93005; 99284-25

== ENCOUNTER 2022-03-08 06:19 | Day surgery (SDC) | payer OTHER, MEDICARE ==
[2022-03-05 14:14] VITALS: BMI 28.6
[2022-03-08] MEDS: CIPROFLOXACIN 0.3% EYE DROPS 5 ML BOTTLE ONE ×3 (06:55→07:05)
[2022-03-08] MEDS: PHENYLEPHRINE 2.5% OPHTH SOLN 15 ML BOTTLE ONE ×3 (06:55→07:05)
[2022-03-08] MEDS: TROPICAMIDE 1% OPHTH SOLN 15 ML BOTTLE ONE ×3 (06:55→07:05)
[2022-03-08] MEDS: CYCLOPENTOLATE 2% OPHTH SOLN 2 ML BOTTLE ONE ×3 (06:55→07:05)
[2022-03-08] MEDS ORDERED: TETRACAINE 0.5% OPHTH SOLN 2 ML BOTTLE ONE (07:11)
[2022-03-08] MEDS ORDERED: LIDOCAINE 1% P/F 10 MG/ML VIAL ONE (07:11)
[2022-03-08] MEDS ORDERED: BSS (NA/CA/MG/K) BALANCED SALT SOLUTION OPHTH SOLN 15 ML BOTTLE ONE (07:11)
[2022-03-08] MEDS ORDERED: EPINEPHrine/PF 1 MG/1 ML (1:1,000) AMPULE ONE (07:11)
[2022-03-08] MEDS ORDERED: NEO/POLYMYX B SULF/DEXAMETH OPHTHALMIC 5ML BOTTLE ONE (07:12)
[2022-03-08] MEDS ORDERED: CARBACHOL 0.01% INTRA-OCULAR 1.5 ML VIAL ONE (07:12)
[2022-03-08] MEDS ORDERED: MIDAZOLAM HCL 2 MG/2 ML SINGLE DOSE VIAL ONE (07:58)
[2022-03-08] MEDS ORDERED: ONDANSETRON 4 MG/2 ML VIAL ONE (08:16)
[2022-03-08 08:56] VITALS: TEMP 97
[2022-03-08 09:36] VITALS: BP 114/60; PULSE 84; RESP 18
== END 2022-03-08 09:37 | disposition home or self-care (01) ==
LOC: FASU 06:19
PROVIDERS: ATTEND Ophthalmology
PROC: 08RJ3JZ Replacement of Right Lens with Synthetic Substitute, Percutaneous Approach (ICD-10-PCS; principal; 2022-03-08 08:35)
DX: H26.8 Other specified cataract (principal)
CPT/HCPCS: 66984; V2632; 82962

== ENCOUNTER 2022-04-04 07:50 | Day surgery (SDC) | payer OTHER, MEDICARE ==
[2022-03-29 15:20] VITALS: BMI 28.6
[2022-04-04] MEDS ORDERED: EPINEPHrine/PF 1 MG/1 ML (1:1,000) AMPULE ONE (08:31)
[2022-04-04] MEDS ORDERED: BSS (NA/CA/MG/K) BALANCED SALT SOLUTION OPHTH SOLN 15 ML BOTTLE ONE (08:31)
[2022-04-04] MEDS ORDERED: TETRACAINE 0.5% OPHTH SOLN 2 ML BOTTLE ONE (08:31)
[2022-04-04] MEDS ORDERED: NEO/POLYMYX B SULF/DEXAMETH OPHTHALMIC 5ML BOTTLE ONE (08:32)
[2022-04-04] MEDS ORDERED: CARBACHOL 0.01% INTRA-OCULAR 1.5 ML VIAL ONE (08:32)
[2022-04-04 08:53] VITALS: TEMP 97.5
[2022-04-04] MEDS: CIPROFLOXACIN 0.3% EYE DROPS 5 ML BOTTLE ONE ×3 (08:55→09:05)
[2022-04-04] MEDS: TROPICAMIDE 1% OPHTH SOLN 15 ML BOTTLE ONE ×3 (08:55→09:05)
[2022-04-04] MEDS: PHENYLEPHRINE 2.5% OPHTH SOLN 15 ML BOTTLE ONE ×3 (08:55→09:05)
[2022-04-04] MEDS: CYCLOPENTOLATE 2% OPHTH SOLN 2 ML BOTTLE ONE ×3 (08:55→09:05)
[2022-04-04] MEDS ORDERED: MIDAZOLAM HCL 2 MG/2 ML SINGLE DOSE VIAL ONE (09:50)
[2022-04-04 10:30] VITALS: RESP 20
[2022-04-04 11:21] VITALS: BP 120/64; PULSE 77
== END 2022-04-04 11:21 | disposition home or self-care (01) ==
LOC: FASU 07:50
PROVIDERS: ATTEND Ophthalmology
PROC: 08RK3JZ Replacement of Left Lens with Synthetic Substitute, Percutaneous Approach (ICD-10-PCS; principal; 2022-04-04 09:54)
DX: H26.8 Other specified cataract (principal); H21.542 Posterior synechiae (iris), left eye
CPT/HCPCS: 66982; V2632; 82962

== ENCOUNTER 2022-04-27 09:09 | Emergency (ER) | payer OTHER, MEDICARE ==
[2022-04-27 09:20] VITALS: BP 126/69; PULSE 90; RESP 20; TEMP 98.1; BMI 28.5
[2022-04-27] MEDS ORDERED: LIDOCAINE 5% TOPICAL PATCH TP ONE (10:02)
[2022-04-27] MEDS ORDERED: IBUPROFEN 400 MG TABLET (FP) PO ONE ×2 (10:02→10:04)
[2022-04-27] MEDS ORDERED: LIDOCAINE 5% TOPICAL PATCH ONE (10:05)
[2022-04-27] MEDS ORDERED: LIDOCAINE PATCH REMOVAL MC SCH (22:00)
== END 2022-04-27 13:08 | disposition home or self-care (01) ==
LOC: FER 09:09
DX: M79.601 Pain in right arm (principal)
CPT/HCPCS: 73030-TC-RT-FY; 73060-TC-RT-FY; 93971; 99284-25

== ENCOUNTER 2022-07-26 11:01 | Emergency (ER) | payer MEDICARE, OTHER ==
[2022-07-26 11:20] VITALS: PULSE 73; RESP 16; BMI 29.6
[2022-07-26] MEDS ORDERED: SODIUM CHLORIDE 0.9% 1000 ML INFUS.BAG IV ONE ×2 (11:38→13:42)
[2022-07-26 12:42] LABS: HEMATOCRIT 36.3 % (35.4-49); HEMOGLOBIN 12.4 G/dL (11.7-16.9); MCH 32.7 pg (25.7-33.7); MCHC 34.2 g/dl (32.0-35.9); MEAN CELL VOLUME 95.9 fl (80-96); MEAN PLT VOLUME 8.7 fl (7.5-11.1); PLATELET COUNT 292.4 10^3/uL (134-434); RBC 3.79 10^6/uL (4.00-5.60); RDW 15.3 % (11.9-15.9); WHITE BLOOD COUNT 8.1 10^3/uL (4.0-10.8)
[2022-07-26 12:43] LABS: INR 2.2 (0.83-1.09); PROTHROMBIN TIME (PATIENT) 25.5 SEC (9.7-13.0)
[2022-07-26 12:45] LABS: PLATELET ESTIMATE ADEQUATE
[2022-07-26 12:50] LABS: BILIRUBIN,TOTAL 0.9 mg/dl (0.2-1); CALCIUM 9.8 mg/dl (8.5-10); TOT PROT 7.3 g/dl (6.4-8.2)
[2022-07-26 12:58] LABS: EPITHELIAL CELLS FEW /hpf
[2022-07-26] MEDS ORDERED: ACETAMINOPHEN 500 MG TABLET (FP) PO ONE (13:42)
[2022-07-26] MEDS ORDERED: ACETAMINOPHEN 500 MG TABLET (FP) ONE (13:43)
[2022-07-26 15:06] VITALS: BP 124/71; TEMP 97.6
[2022-07-26] MEDS ORDERED: KETOROLAC TROMETHAMINE 15 MG/ML VIAL IVPUSH ONE (15:09)
[2022-07-26] MEDS ORDERED: KETOROLAC TROMETHAMINE 15 MG/ML VIAL IM ONE (15:11)
[2022-07-26] MEDS ORDERED: KETOROLAC TROMETHAMINE 15 MG/ML VIAL ONE (15:13)
== END 2022-07-26 15:34 | disposition home or self-care (01) ==
LOC: FER 11:01
PROC: 3E0233Z Introduction of Anti-inflammatory into Muscle, Percutaneous Approach (ICD-10-PCS; principal; 2022-07-26)
DX: N39.0 Urinary tract infection, site not specified (principal); R51.9 Headache, unspecified
CPT/HCPCS: 0241U-QW; 36415; 70450-TC; 80053; 81003; 81015; 85027; 85610; 85730; 99284-25